=== PATIENT | female | born 1960 | race Caucasian/White ===

== ENCOUNTER 2018-11-16 16:14 | Outpatient (REF) | payer MEDICARE, SELFPAY ==
[2018-11-16 22:27] LABS: Anion Gap 8.6 mmol/L (3-11); BUN 12 mg/dL (7-18); CO2 28.4 mmol/L (21.0-32.0); CREATININE 0.67 mg/dL (0.55-1.02); Calcium 9.3 mg/dL (8.5-10.1); Chloride 104 mmol/L (98-107); Glucose 82 mg/dL (70-100); Potassium 4.2 mmol/L (3.5-5.1); Sodium 141 mmol/L (136-145); TSH 3.11 uIU/mL (0.358-3.74)
[2018-11-16 22:44] LABS: Hemoglobin A1C 5.2 % (4.5-6.2)
== END 2018-11-16 16:34 ==
LOC: NCHCN 16:14
PROVIDERS: PCP Internal Medicine; Visit Provider Internal Medicine
DX: E03.9 Hypothyroidism, unspecified (principal); E66.01 Morbid (severe) obesity due to excess calories
CPT/HCPCS: 80048; 83036; 84443

== ENCOUNTER 2019-06-12 08:31 | Emergency (ER) | payer MEDICARE, SELFPAY ==
[2019-06-12 08:35] VITALS: BP 124/52; PULSE 66; RESP 18; TEMP 36.7; O2SAT 98
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
--- NOTE | 2019-06-12 10:12 | DI.US_ITS ---
EXAM: US LOWER EXTREMITY VENOUS RT CLINICAL HISTORY: swelling, pain TECHNIQUE: Right lower extremity venous ultrasound performed using grayscale, color-flow, and spectr al Doppler analysis. COMPARISON: No exams were available for comparison FINDINGS: The right common femoral, femoral and popliteal veins demonstrate normal compressibility, augmentatio n, and color Doppler. The posterior tibial veins are patent.There is thrombus seen in superficial vei ns in the medial calf and medial knee. The saphenofemoral junction is unremarkable. No focal fluid collection is seen in the soft tissues. IMPRESSION: 1. No DVT. 2. Superficial thrombophlebitis.
--- NOTE | 2019-06-12 11:20 | DI.VRAD_ITS ---
PROCEDURE INFORMATION: Exam: US Duplex Right Lower Extremity Veins, Limited Exam date and time: 06/12/2019 10:58 AM Age: 58 years old Clinical indication: Leg, lower; Right; Patient HX: RT medial knee/prox calf pain, redness, and swelling x 1 month. Increasing pain, redness, and swelling. ; Additional info: PT is not on blood thinners and denies HX of clots. TECHNIQUE: Imaging protocol: Real-time Duplex ultrasound of the Right Lower Extremity with 2-D alvarez scale, color Doppler flow and spectral waveform analysis with image documentation. Limited exam was focused on the right lower extremity veins. COMPARISON: No relevant prior studies available. FINDINGS: Right deep veins: Unremarkable. The common femoral, femoral, proximal profunda femoral and popliteal veins are patent without thrombus. Normal Doppler waveforms. Normal compressibility and/or augmentation response. The posterior tibial vein in the calf is patent as well. Right superficial veins: Some thrombosed superficial veins are present in the medial calf and about the knee medially in the area of swelling. Soft tissues: Unremarkable. IMPRESSION: 1. No deep venous thrombus demonstrated in the right lower extremity. 2. Thrombosed superficial veins about the knee and calf medially. Dictated and Authenticated by: Damon Brown MD. Ordering:BAKARI Cuellar MD
[2019-06-12] MEDS: Apixaban 5 MG TAB 10 MG PO (11:27)
[2019-06-12 11:30] VITALS: PULSE 61; RESP 18; O2SAT 96
== END 2019-06-12 11:31 | disposition home or self-care (01) ==
PROVIDERS: Emergency Provider Student in an Organized Health Care Education/Training Program; PCP Internal Medicine
DX: I82.491 Acute embolism and thrombosis of other specified deep vein of right lower extremity (principal); J44.9 Chronic obstructive pulmonary disease, unspecified; F17.210 Nicotine dependence, cigarettes, uncomplicated
CPT/HCPCS: 99284; 93971

== ENCOUNTER → 2019-10-06 11:13 | Outpatient (CLI) | payer MEDICARE, SELFPAY ==
--- NOTE | 2019-10-06 | DI.CT_ITS ---
EXAM: CT CHEST PE CTA CLINICAL HISTORY: SHORTNESS OF BREATH, R06.02, H/O SUPERFICIAL THROMBOPHLEBITIS, Z86.72. TECHNIQUE: Imaging Protocol: Axial CT angiography was performed with multi-slice acquisition and mu lti-planar and/or 3D reconstructions. CONTRAST MATERIAL: Intravenous: Omnipaque 350 Contrast volume:100 ml COMPARISON: No exams were available for comparison FINDINGS: The exam is limited by respiratory motion. Pulmonary Arteries: No evidence of filling defect to sugg est pulmonary emboli. Tracheobronchial tree: Patent where visualized. Mediastinum and Nataly: No dominant adenopathy or fluid collection. Pulmonary parenchyma: Evaluation of the lungs is limited due to respiratory motion. There is a sugge stive diffuse bilateral ground-glass opacities greater in the upper lobes. No consolidation or domin ant measurable mass. . Pleura: No effusion or pneumothorax. Heart: The heart is not dilated. No coronary artery calcifications are seen. Aorta: Thoracic aorta non-dilated. Upper abdomen: Unremarkable. Bones: Normal. IMPRESSION: Bilateral ground ground-glass opacities could set be secondary to viral or atypical infection, inhala tional injury or hypersensitivity. No evidence of pulmonary embolism. RADIATION DOSE DELIVERED: Total DLP DATA REPOSITORY: All CT scans at this facility are submitted to the National Radiology Data Registry (NRDR) Dose Index Registry (DIR) with the [employer] (ACR). RADIATION OPTIMIZATION: All CT scans at this facility use at least one of these dose optimization te chniques: automated exposure control; mA and/or kV adjustment per patient size (includes targeted exa ms where dose is matched to clinical indication); or iterative reconstruction.
--- NOTE | 2019-10-06 16:30 | DI.US_ITS ---
EXAM: US LOWER EXTREMITY VENOUS RT CLINICAL HISTORY: H/O SUPERFICIAL THROMBOPHLEBITIS, NEW SWELLING AND REDNESS TO ANTERIOR NAVARRETE. TECHNIQUE: Right lower extremity venous ultrasound performed using grayscale, color-flow, and spectr al Doppler analysis. COMPARISON: US LOWER EXTREMITY VENOUS RT from 06/12/2019 FINDINGS: The right common femoral, femoral and popliteal veins demonstrate normal compressibility, augmentatio n, and color Doppler. The posterior tibial veins are patent. No saphenous vein thrombosis or other s uperficial venous thrombosis is seen. The previously noted superficial thrombosis has resolved. No hematoma or Luo's cyst is seen. IMPRESSION: Negative right lower extremity ultrasound. No evidence of DVT or superficial thrombosis.. DATA REPOSITORY:
--- NOTE | 2019-10-06 16:44 | DI.VRAD_ITS ---
PROCEDURE INFORMATION: Exam: US Duplex Right Lower Extremity Veins, Limited Exam date and time: 10/06/2019 4:11 PM Age: 58 years old Clinical indication: Other: New swelling and redness to ant steiner; Patient HX: H/o superficial thrombophlebitis TECHNIQUE: Imaging protocol: Real-time Duplex ultrasound of the Right Lower Extremity with 2-D alvarez scale, color Doppler flow and spectral waveform analysis with image documentation. Limited exam was focused on the right lower extremity veins. COMPARISON: US LOWER EXTREMITY VENOUS RT 06/12/2019 10:12 AM FINDINGS: Right deep veins: Unremarkable. The common femoral, femoral, proximal profunda femoral and popliteal veins are patent without thrombus. Normal Doppler waveforms. Normal compressibility and/or augmentation response. Right superficial veins: Unremarkable. Saphenofemoral junction is patent without thrombus. Soft tissues: Unremarkable. IMPRESSION: No DVT of the right lower extremity. Dictated and Authenticated by: Benjamin Bassett MD. Ordering:ELIZABETH Wasserman MD
[2019-10-06 16:56] LABS: CREATININE 0.63 mg/dL (0.55-1.02)
[2019-10-06] MEDS: Omnipaque 350 MG/ML 100 ML BTL IJ (17:42)
[2019-10-06] MEDS: Normal Saline - Diluent 50 ML VIAL IV (17:43)
--- NOTE | 2019-10-06 17:44 | DI.VRAD_ITS ---
PROCEDURE INFORMATION: Exam: CT Angiography Chest With Contrast Exam date and time: 10/06/2019 3:22 PM Age: 58 years old Clinical indication: Other: Shortness of breath, r06.02, h/o superficial thrombophlebitis, z86.72 TECHNIQUE: Imaging protocol: Computed tomographic angiography of the chest with intravenous contrast. 3D rendering: MIP and/or 3D reconstructed images were created by the technologist. Radiation optimization: All CT scans at this facility use at least one of these dose optimization techniques: automated exposure control; mA and/or kV adjustment per patient size (includes targeted exams where dose is matched to clinical indication); or iterative reconstruction. Contrast material: OMNIPAQUE 350; Contrast volume: 100 ml; Contrast route: IV; COMPARISON: CR ABD FLAT UPRIGHT PA CHEST 04/26/2016 12:43 PM FINDINGS: Pulmonary arteries: Normal. No pulmonary emboli. Aorta: Unremarkable. No aortic aneurysm. No aortic dissection. Lungs: Haziness in the left lung base which may be artifactual versus infiltrates. Pleural space: Unremarkable. No pneumothorax. No pleural effusion. Heart: Cardiomegaly. Lymph nodes: Unremarkable. No enlarged lymph nodes. Bones/joints: Unremarkable. No acute fracture. Soft tissues: Unremarkable. Other findings: Suboptimal examination secondary to motion artifact. IMPRESSION: Suboptimal examination secondary to motion artifact. No pulmonary embolism. Haziness in the left lung base which might be artifactual versus edema/infiltrates. If clinical suspicion remains high, repeat examination can be obtained for better evaluation. Dictated and Authenticated by: Benjamin Bassett MD. Ordering:ELIZABETH Wasserman MD
== END ==
PROVIDERS: PCP Internal Medicine; Visit Provider Nurse Practitioner Family
DX: R22.41 Localized swelling, mass and lump, right lower limb (principal); L53.8 Other specified erythematous conditions; R06.02 Shortness of breath; J98.4 Other disorders of lung; Z86.72 Personal history of thrombophlebitis; Z13.89 Encounter for screening for other disorder
CPT/HCPCS: 71275; 82565; 93971; J3490

== ENCOUNTER 2019-10-06 19:18 | Outpatient (REF) | payer MEDICARE, SELFPAY ==
[2019-10-07 19:48] LABS: COVID-19 RT-PCR UVMMC Result Negative (Negative)
== END 2019-10-06 19:38 ==
LOC: NCHCN 19:18
PROVIDERS: PCP Internal Medicine; Visit Provider Nurse Practitioner Family
DX: J06.9 Acute upper respiratory infection, unspecified (principal)
CPT/HCPCS: U0003

== ENCOUNTER 2019-11-22 16:10 | Outpatient (REF) | payer MEDICARE, SELFPAY ==
[2019-11-22 21:28] LABS: HCT 40.8 % (36.0-46.0); HGB 13.2 g/dL (12.0-15.5); Mean Corp. HGB Concentration 32.4 g/dL (32.0-36.0); Mean Corpuscular Hemoglobin 30.6 pg (27.0-33.0); Mean Corpuscular Volume 94.4 fL (80-95); Mean Platelet Volume 9.5 fL (8.0-11.0); Platelet Count 259 x1000/uL (130-400); RBC 4.32 m/cumm (4.00-5.20); RBC Distribution Width 14.1 % (11.7-14.6); White Blood Cell Count 5.55 k/cumm (4.4-10.8)
[2019-11-22 22:30] LABS: Hemoglobin A1C 5.2 % (3.8-5.6)
[2019-11-22 22:34] LABS: Anion Gap 7.6 mmol/L (3-11); BUN 12 mg/dL (7-18); CO2 28.4 mmol/L (21.0-32.0); CREATININE 0.58 mg/dL (0.55-1.02); Calcium 9.2 mg/dL (8.5-10.1); Chloride 107 mmol/L (98-107); Glucose 86 mg/dL (74-106); NT-proBNP 77 pg/mL (<300); Potassium 4.4 mmol/L (3.5-5.1); Sodium 143 mmol/L (136-145); TSH 2.13 uIU/mL (0.36-3.74)
== END 2019-11-22 16:30 ==
LOC: NCHCN 16:10
PROVIDERS: PCP Internal Medicine; Visit Provider Internal Medicine
DX: E03.9 Hypothyroidism, unspecified (principal); R09.02 Hypoxemia; M17.0 Bilateral primary osteoarthritis of knee; R06.09 Other forms of dyspnea; Z79.899 Other long term (current) drug therapy; J44.9 Chronic obstructive pulmonary disease, unspecified; E66.01 Morbid (severe) obesity due to excess calories
CPT/HCPCS: 80048; 85027; 83036; 83880; 84443

== ENCOUNTER 2019-11-23 01:00 | Outpatient (CLI) | payer MEDICARE, MEDICAID, SELFPAY ==
--- NOTE | 2019-11-23 10:35 | DI.US_ITS ---
APPROVED REPORT EXAM: Comprehensive 2D, Doppler, and color-flow Echocardiogram Patient Location: Out-Patient Right Of Way Supervisor: Catia Gentile RDCS (AE) Indications: Exertional Dyspnea Other Information Study Quality: Technically Limited Conclusion This is a technically limited study. Left Ventricle : Left ventricle is borderline dilated. The overall left ventricular systolic function appears normal. There is normal left ventricular wall thickness. Regional wall motion is not well vi sualized but grossly normal. The left ventricular diastolic function is normal. LVEF is 55-60%. Right Ventricle : Right ventricle is not well visualized. Right ventricular systolic function could n ot be assessed. The RVSP is 41 mmHg. Atria : The left atrium size is normal. The right atrium size is normal. Valves there are no hemodynamically significant valvular lesions. Great Vessels : IVC is normal in size and collapses >50% with inspiration. Compared to echocardiogram from 04/10/2014: Estimated RVSP has increased. Wall motion Left Ventricle Left ventricle is borderline dilated. The overall left ventricular systolic function appears normal. There is normal left ventricular wall thickness. Regional wall motion is not well visualized but delmar sly normal. The left ventricular diastolic function is normal. There is no ventricular septal defect visualized. LVEF is 55-60%. Right Ventricle Right ventricle is not well visualized. Right ventricular systolic function could not be assessed. Th e RVSP is 41.6 mmHg. Atria The left atrium size is normal. The right atrium size is normal. The interatrial septum is intact wit h no evidence for an atrial septal defect. Aortic Valve The aortic valve is normal in structure. There is no aortic valvular stenosis. No aortic regurgitatio n is present. Mitral Valve The mitral valve is normal in structure. No evidence of mitral valve stenosis. Trace mitral regurgita tion. Tricuspid Valve The tricuspid valve is normal in structure. There is no tricuspid valve stenosis. Trace to mild tricu spid regurgitation. Pulmonic Valve Pulmonic valve is not well visualized. There is no pulmonic valvular stenosis. Great Vessels The aortic root is normal in size. Ascending aorta is not well visualized. Aortic arch is normal in c aliber. IVC is normal in size and collapses >50% with inspiration. Pericardium There is no pericardial effusion. 2D Dimensions IVSD d PLAX 0.91 cm F: 0.6-1.0 LV Vol A2C d MOD 123.7 mL LVPW d PLAX 0.92 cm F: 0.6 - 1.0 LV Vol A4C d MOD 119.4 mL LVID d PLAX 5.27 cm F: 3.8 - 5.2 LA vol/ BSA A2C s A-L 28.3 mL/m2 LVDs 3.80 cm F: 2.2 - 3.5 LA vol/ BSA A4C s A-L 26.9 mL/m2 Ao Root d 2.59 cm F: 2.7 - 3.3 LA Vol/ BSA Biplane s A-L 28.3 mL/m2 RA Area A4C 19.39 cm2 LA Area A4C s MOD 20.50 cm2 RA Vol/ BSA A4C s A-L 26.7 mL/m2 LA Area A2C s MOD 20.53 cm2 LV EF Teichholz 52.4 % LV EF A4C MOD 55.8 % LVEF (Haro's) 58.43 % F: 54 - 74 LV EF A2C MOD 58.1 % LV Volume 90.78 mL F: 46 - 106 LV EF Biplane MOD 58.4 % LV Volume Index 38.46 mL/m2 F: 29 - 61 SV 74.55 mL LV Vol Biplane MOD 127.6 mL SV Index 31.54 mL/m2 FS 27.10 % M-Mode TAPSE 2.99 cm (M/F) >1.7 LV Diastology MV E' medial 0.127 (>0.07 m/s) E/A Ratio 1.3 LV E/e MED 8.05 (<14) MV E Vmax 1.03 (0.4-1.3 m/s) MV E' lateral 0.154 (>0.1 m/s) MV A Vmax 0.80 (0.4-1.3 m/s) LV E/e LAT 6.65 (<14) MV E/A Ratio 1.26 MV E/E' medial 8.08 MV E/E' lateral 6.67 Aortic Valve LVOT Area 3.68 cm2 AoV Area Vmax 2.75 cm2 LVOT Vmax 1.32 m/s AoV Area/ BSA (Vmax) 1.16 cm2/m2 LVOT Mean Rolly. 0.85 m/s SHAYY Mean Rolly. 2.64 cm2 LVOT Peak Grad 7.0 mmHg SHAYY Mean Rolly. Index 1.12 cm2/m2 LVOT Mean Grad 3.4 mmHg LVOT VTI 0.309 m LVOT Diam s 2.15 cm AoV Vmax 1.77 m/s Velocity Ratio 0.74 AoV Mean Rolly. 1.18 m/s AoV Peak Grad 12.5 mmHg LVOT SV 113.48 mL AoV Mean Grad 6.4 mmHg AoV VTI 0.408 m AoV Area VTI 2.78 cm2 AoV Area/ BSA (VTI) 1.18 cm/m2 Mitral Valve MV DT 195 (160-240 msec) MV PHT 56 msec MV Area PHT 3.90 cm2 Pulmonary Valve PV Vmax 1.18 (0.5-1.5 m/s) RVOT Peak Gr. 2.76 mmHg PV Peak Grad 5.6 mmHg RVOT Mean Gr. 1.95 mmHg PV Mean Grad 3.0 mmHg RVOT VTI 0.265 m PV VTI 0.275 m RVOT Vmax 0.83 m/s Tricuspid Valve TR Peak Grad 38.5 mmHg TR Vmax 3.10 m/s RA Pressure 3.00 mmHg RVSP (TR) 41.6 mmHg
== END 2019-11-23 01:20 ==
PROVIDERS: PCP Internal Medicine; Visit Provider Internal Medicine
DX: R06.09 Other forms of dyspnea (principal); R06.02 Shortness of breath; I42.8 Other cardiomyopathies
CPT/HCPCS: 93306

== ENCOUNTER 2019-11-29 00:15 | Outpatient (CLI) | payer MEDICARE, MEDICAID, SELFPAY ==
--- NOTE | 2019-11-29 10:39 | DI.RAD_ITS ---
EXAM: XR KNEE LT 3V AP,LAT,TIMOTHY INDICATION: BILAT KNEE OA,M17.0. COMPARISON: CR LEFT KNEE 3 VIEW COMPLETE from 11/02/2014 CR XR KNEE RT 3V AP,LAT,TIMOTHY from 11/29/2019 TECHNIQUE: 2D digital imaging was performed. FINDINGS: Prominent periarticular spurring is seen throughout. There is moderate to severe narrowing of the m edial femoral tibial joint. No joint effusion is visible. IMPRESSION: Advanced degenerative changes with some interval worsening compared with 2014. DATA REPOSITORY: RADIATION DOSE DELIVERED:
--- NOTE | 2019-11-29 10:39 | DI.RAD_ITS ---
EXAM: XR KNEE RT 3V AP,LAT,TIMOTHY CLINICAL HISTORY: BILAT KNEE OA,M17.0. TECHNIQUE: 2D digital imaging was performed. COMPARISON: CR KNEES BILAT AP STANDING LATS from 03/07/2015 FINDINGS: BONES: No acute fracture is present. No bony destructive lesion is seen. Prominent periarticular spur ring is seen throughout. JOINTS: There is moderate narrowing of the medial femoral tibial joint.. No joint effusion is seen. SOFT TISSUE: Venous varicosities.. IMPRESSION: Advanced degenerative changes, greatest of the medial femoral tibial joint.. DATA REPOSITORY: RADIATION DOSE DELIVERED:
== END 2019-11-29 00:35 ==
PROVIDERS: PCP Internal Medicine; Visit Provider Internal Medicine
DX: M25.561 Pain in right knee (principal); M25.562 Pain in left knee; M17.0 Bilateral primary osteoarthritis of knee
CPT/HCPCS: 73562

== ENCOUNTER → 2020-01-10 09:33 | Outpatient (BNVA) | payer MEDICARE, MEDICAID, SELFPAY | PROVIDERS: PCP Internal Medicine; Referring Provider Internal Medicine; Visit Provider Internal Medicine Cardiovascular Disease | DX: I27.20 Pulmonary hypertension, unspecified; E03.9 Hypothyroidism, unspecified; E66.8 Other obesity; J44.9 Chronic obstructive pulmonary disease, unspecified; F17.211 Nicotine dependence, cigarettes, in remission | CPT/HCPCS: 99203; 99214 ==

== ENCOUNTER 2020-01-27 02:23 | Outpatient (CLI) | payer MEDICARE, MEDICAID, SELFPAY ==
--- NOTE | 2020-01-27 | DI.MAMMO_ITS ---
EXAM: MG MAMMO SCREENING CLINICAL HISTORY: SCREENING,Z12.39 TECHNIQUE: Bilateral full field digital CC and MLO mammographic images were obtained with 3D tomosyn thesis and utilizing computer aided detection (CAD). COMPARISON: Available for comparison. FINDINGS: Masses/Architectural Distortion: None seen. Microcalcifications: No suspicious pleomorphic-type are seen. Skin Thickening/Nipple Retraction: None. IMPRESSION: 1. No significant interval change with no specific features of malignancy noted. 2. Unless there is more urgent need, screening mammography is recommended, as per [employer] guidelines. BI-RADS Category 1 - Negative Breast Density - Category A - Almost entirely fatty A negative radiographic report should not delay biopsy if a dominant or clinically suspicious mass is present. Up to ten percent of cancers are not identified on mammography. A negative report may reinforce clinical impression. Adenosis and dense breasts may obscure an underlying neoplasm. False positive reports average 6 to 10%. Patient will receive a letter notifying them of these results.
== END 2020-01-27 02:43 ==
PROVIDERS: PCP Internal Medicine; Visit Provider Internal Medicine
DX: Z12.31 Encounter for screening mammogram for malignant neoplasm of breast (principal)
CPT/HCPCS: 77063; 77067

== ENCOUNTER 2020-03-07 14:49 | Outpatient (REF) | payer MEDICARE, MEDICAID, SELFPAY ==
[2020-03-09 19:22] LABS: Patient Race White; SARS-CoV-2 RNA Undetected (Undetected); SARS-CoV-2 Specimen Source Nasopharynx
== END 2020-03-07 15:09 ==
LOC: NCHCN 14:49
PROVIDERS: PCP Internal Medicine; Visit Provider Nurse Practitioner Family
DX: R06.02 Shortness of breath (principal)
CPT/HCPCS: U0003

== ENCOUNTER 2020-03-26 11:44 | Emergency (ER) | payer MEDICARE, MEDICAID, SELFPAY ==
[2020-03-26 11:51] VITALS: BP 142/103; PULSE 65; RESP 20; TEMP 36.7; O2SAT 99
--- NOTE | 2020-03-26 12:00 | DI.RAD_ITS ---
EXAM: XR RIBS LT PA CHEST 3V CLINICAL HISTORY: Fall yesterday, left rib pain TECHNIQUE: 2D digital imaging was performed. COMPARISON: No exams were available for comparison FINDINGS: MEDIASTINUM: Normal. HEART: Normal. PULMONARY VASCULATURE: Normal. LUNGS: Clear. PLEURAL SPACE: No pleural effusion or pneumothorax. BONE:Normal. LEFT RIBS: Normal. OTHER FINDINGS:Normal. IMPRESSION: 1. No acute pulmonary findings. 2. Unremarkable left ribs. DATA REPOSITORY: RADIATION DOSE DELIVERED:
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
[2020-03-26 12:58] VITALS: BP 136/58; PULSE 64; RESP 18; TEMP 36.6; O2SAT 96
[2020-03-26] MEDS: traMADol 50 MG TAB PO (13:25)
[2020-03-26] MEDS: Lidocaine 5% Patch 1 PATCH TP (13:36)
[2020-03-26 13:41] VITALS: BP 132/91; PULSE 62; RESP 22; TEMP 36.4; O2SAT 95
[2020-03-26 13:42] VITALS: BP 132/91; PULSE 62; RESP 22; TEMP 36.4; O2SAT 95
== END 2020-03-26 13:44 | disposition home or self-care (01) ==
PROVIDERS: Emergency Provider Registered Nurse Emergency; PCP Internal Medicine
DX: S20.222A Contusion of left back wall of thorax, initial encounter (principal); W18.2XXA Fall in (into) shower or empty bathtub, initial encounter; J44.9 Chronic obstructive pulmonary disease, unspecified; Z87.891 Personal history of nicotine dependence
CPT/HCPCS: 71101; 99283; 99284

== ENCOUNTER 2020-03-29 14:02 | Inpatient (IN) | payer MEDICARE, MEDICAID, SELFPAY ==
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
[2020-03-29 14:06] VITALS: BP 150/63; PULSE 74; RESP 22; TEMP 37.1; O2SAT 96
[2020-03-29] MEDS: Lidocaine 5% Patch 1 PATCH TP (14:28)
[2020-03-29] MEDS: diazePAM 5 MG TAB PO (14:28)
[2020-03-29] MEDS: oxyCODONE 5 MG TAB PO ×2 (14:28→15:20)
--- NOTE | 2020-03-29 15:30 | DI.CT_ITS ---
EXAM: CT CHEST WO CLINICAL HISTORY: L lateral rib contusion s/p fall, r/o fx. TECHNIQUE: Imaging protocol: Axial computed tomography images were obtained and coronal and sagittal reformatted images were created and reviewed. COMPARISON: CR XR RIBS LT PA CHEST 3V from 03/26/2020 FINDINGS: Tracheobronchial tree: Patent where visualized. Mediastinum and Nataly: No dominant adenopathy or fluid collection. Pulmonary parenchyma: Atelectasis in the lung bases left greater than right. No architectural distor tion. Pleura: Tiny left pleural effusion. No right pleural effusion or pneumothorax. Heart: The heart is not dilated. No coronary artery calcifications are seen. No significant pericardi al effusion. Aorta: Thoracic aorta non-dilated. Upper abdomen: Unremarkable. Lymph nodes: Within normal limits. Bones:There are nondisplaced fractures of the lateral aspects of the left 6th, 7th and 8th ribs. Soft tissues: Unremarkable. IMPRESSION: 1. Nondisplaced fractures of the lateral aspects of the left 6th, 7th and 8th ribs. 2. No pneumothorax. 3. Tiny left pleural effusion and left basilar atelectasis. 4. Findings were discussed with the emergency department on the date of the examination. RADIATION DOSE DELIVERED: 800.06mGy.cm Total DLP 800.06mGy.cm Total DLP DATA REPOSITORY: All CT scans at this facility are submitted to the National Radiology Data Registry (NRDR) Dose Index Registry (DIR) with the [employer] ([employer]). RADIATION OPTIMIZATION: All CT scans at this facility use at least one of these dose optimization te chniques: automated exposure control; mA and/or kV adjustment per patient size (includes targeted exa ms where dose is matched to clinical indication); or iterative reconstruction.
[2020-03-29] MEDS: Ondansetron 4 MG/2 ML VIAL IVP (16:15)
[2020-03-29] MEDS: HYDROmorphone 2 MG/ML VIAL 0.5 MG IV (16:15)
[2020-03-29] MEDS: Normal Saline 500 ML IV (16:16)
[2020-03-29 16:30] VITALS: BP 104/76; PULSE 68; O2SAT 94
[2020-03-29 16:39] VITALS: BP 104/43; PULSE 70; RESP 16; TEMP 37.1; O2SAT 94
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
--- NOTE | 2020-03-29 17:07 | NUR.NOTE ---
Nursing Note: Pt provided with meal tray at 1700
[2020-03-29 18:20] VITALS: BP 118/82; PULSE 67; RESP 16; TEMP 36.5; O2SAT 95
[2020-03-29 18:35] VITALS: BP 118/72; PULSE 77; RESP 18; TEMP 37.4; O2SAT 94
[2020-03-29] MEDS: fentaNYL 25 MCG PATCH TD (18:50)
[2020-03-29] MEDS: Enoxaparin 40 MG/0.4 ML SYR SC (18:50)
[2020-03-29] MEDS: Cyclobenzaprine 10 MG TAB PO (18:50)
[2020-03-29] MEDS: Acetaminophen 500 MG TAB 1000 MG PO ×2 (18:50→23:18)
[2020-03-29] MEDS: oxyCODONE 10 MG TAB PO ×2 (19:31→23:19)
[2020-03-29 20:24] LABS: HCT 38.6 % (36.0-46.0); HGB 12.5 g/dL (11.2-15.7); MCH 30.3 pg (27.0-33.0); MCHC 32.4 % (32.0-36.0); MCV 93.7 fL (80-95); MPV 9.1 fL (8.0-11.0); Platelet Count 216 10^3/uL (130-400); RBC 4.12 10^6/uL (3.93-5.22); RDW 13.9 % (11.7-14.6); RDW-SD 47.8 fL; WBC 8.27 10^3/uL (4.4-10.8)
[2020-03-29] MEDS: Docusate Sodium 100 MG CAP PO (20:25)
[2020-03-29] MEDS: Pregabalin 50 MG CAP 150 MG PO (20:25)
[2020-03-29] MEDS: Ketorolac 30 MG/ML VIAL IVP (20:26)
[2020-03-29] MEDS: Normal Saline Flush 10 ML SYR IVP (20:27)
[2020-03-29 23:42] VITALS: BP 94/56; PULSE 71; RESP 17; TEMP 36.6; O2SAT 94
[2020-03-30] MEDS: Normal Saline Flush 10 ML SYR IVP ×3 (01:35→19:45)
[2020-03-30] MEDS: Ketorolac 30 MG/ML VIAL IVP ×4 (01:36→19:46)
[2020-03-30 01:44] LABS: COVID-19 RT-PCR UVMMC Result Negative (Negative)
[2020-03-30 06:30] VITALS: BP 137/75; PULSE 60; RESP 18; TEMP 35.7; O2SAT 92
[2020-03-30] MEDS: oxyCODONE 10 MG TAB PO (06:39)
[2020-03-30] MEDS: Acetaminophen 500 MG TAB 1000 MG PO ×3 (06:41→18:26)
[2020-03-30] MEDS: Levothyroxine 75 MCG TAB PO (06:41)
[2020-03-30 07:45] VITALS: BP 105/74; PULSE 66; RESP 18; TEMP 36.6; O2SAT 94
[2020-03-30] MEDS: Sertraline 50 MG TAB 100 MG PO (07:48)
[2020-03-30] MEDS: Docusate Sodium 100 MG CAP PO ×3 (07:48→19:47)
[2020-03-30] MEDS: Pregabalin 50 MG CAP 150 MG PO ×3 (07:48→19:47)
[2020-03-30] MEDS: Lidocaine 5% Patch 1 PATCH TP (09:12)
[2020-03-30] MEDS: Tiotropium/Olodaterol 10 PUFF INHALER 2 PUFF IH (09:21)
[2020-03-30] MEDS: LORazepam 1 MG TAB PO (09:43)
--- NOTE | 2020-03-30 10:32 | W.PM.PROGNOT ---
Date of Service Date of service: 03/30/20 Time of Service: 10:32 Assessment and Plan Assessment and plan (1) Tobacco use: Status: None (2) Chronic pain: Status: None (3) COPD (chronic obstructive pulmonary disease): Status: None (4) Ventricular hypertrophy determined by echocardiography: Status: Acute (5) Sleep apnea: Status: Acute (6) Fall: Status: Acute (7) Contusion of left chest wall: Status: Acute Assessment and plan: pt was alseep in bed cont IS contPT (8) Multiple rib fractures: Status: Acute (9) Intractable pain: Status: Acute (10) Pulmonary hypertension: Status: Acute (11) Hypothyroidism: Status: None (12) Obesity: Status: None Subjective Subjective Interval history since last seen: pt has been falling at home. Pt refuses to have an MRI in our unit. Once to be sedated. pt xray is unremarkable other than Fx. She is 5 days post injury. Awaiting PT eval. Pt is comfortable and slept during the night per RN's. Exam Resp Effort & Inspection: normal respiratory effort and able to speak in complete sentences Auscultation: clear to auscultation bilaterally Objective Last Vital Signs Temp 36.6 C 03/30/20 07:45 Pulse 66 03/30/20 07:45 Resp 18 03/30/20 07:45 BP 105/74 03/30/20 07:45 Pulse Ox 94 03/30/20 07:45 Laboratory Results - last 24 hr 03/29/20 03/29/20 18:10 20:15 WBC 8.27 RBC 4.12 Hgb 12.5 Hct 38.6 MCV 93.7 MCH 30.3 MCHC 32.4 RDW 13.9 Plt Count 216 MPV 9.1 COVID-19 PCR Negative Nasopharyn COVID-19 PCR Not Applicable Ref Test Perform Site [facility] lab
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
--- NOTE | 2020-03-30 14:23 | CHAPLAIN ---
I visited briefly with Aparna and her daughter. Aparna was up walking around the room a bit. She was pleasant, but not interested in further conversation.
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
[2020-03-30 15:57] VITALS: BP 118/82; PULSE 67; RESP 16; TEMP 36.5; O2SAT 95
--- NOTE | 2020-03-30 16:15 | PDOC.HHF2F_ITS ---
Home Health Certification Home Health Certification: 1. Encounter Date and Reason I certify that TORY LECHUGA was seen by Debbie Willard on 03/30/20 and that I had a [id number] encounter with this patient that meets the physician face to face encounter requirements. 2. Clinical Findings Supporting Skilled Need and Homebound Status I certify that home health services are medically necessary, include either intermittent [place] [facility] and/or physical/speech therapy, and that this patient is homebound in that absences from the home require considerable and taxing effort and are infrequent or of short duration, or are attributable to the need to receive medical care. [X] (a) Attached documentation from encounter provides clinical findings supporting skilled need and homebound status (including what assistance patient requires to leave the home). The encounter with the patient was in whole, or in part, for the following medical condition, which is the primary reason for home health care: BLUNT CHEST TRAUMA/RIB FRACTURES Fpc: Physical Therapy: pt needs home PT for strength and balance Speech Therapy: Homebound: 3. Certification and Authentication I certify that I composed the above information based on my clinical judgement relating to this patient's medical condition and, if applicable, clinical findings communicated to me by the NPP or inpatient physician who performed the Home Health Referral. All further orders will be obtained through (Community Based Physician - PCP)
[2020-03-30] MEDS: Enoxaparin 40 MG/0.4 ML SYR SC (18:26)
[2020-03-30] MEDS: Lidocaine Patch Removal 1 EACH TD (21:07)
[2020-03-31] MEDS: Acetaminophen 500 MG TAB 1000 MG PO ×3 (00:13→11:00)
[2020-03-31] MEDS: Ketorolac 30 MG/ML VIAL IVP ×2 (02:49→07:45)
[2020-03-31 03:38] VITALS: BP 100/51; PULSE 67; RESP 16; TEMP 36.5; O2SAT 96
[2020-03-31] MEDS: Levothyroxine 75 MCG TAB PO (06:18)
[2020-03-31 07:44] VITALS: BP 107/72; PULSE 61; RESP 16; TEMP 36.4; O2SAT 95
[2020-03-31] MEDS: Normal Saline Flush 10 ML SYR IVP (07:45)
[2020-03-31] MEDS: Sertraline 50 MG TAB 100 MG PO (07:45)
[2020-03-31] MEDS: Pregabalin 50 MG CAP 150 MG PO (07:45)
[2020-03-31] MEDS: Docusate Sodium 100 MG CAP PO (07:45)
[2020-03-31] MEDS: Lidocaine 5% Patch 1 PATCH TP (07:46)
--- NOTE | 2020-03-31 08:34 | PT.INTREAT ---
PT Notes Visit Reasons: BLUNT CHEST TRAUMA/RIB FRACTURES 03/31/2020 SUBJECTIVE: Aparna stating her pain is much improved today. She feels steadier on her feet as well. OBJECTIVE: [id number] Pt seated in her recliner. Agreeable to PT treatment. TRANSFERS Sit to stand: SBA Stand to side: SBA GAIT Device: SPC Weight bearing: Full Assist: SBA Distance: 50' Deviation: Wide HIEN, drags her feet slightly. THEREX: Instruct pt in seated LAQ, hip flexion, ankle pumps, biceps curls, glute sets. These are to be performed often here at the hospital and when she returns home. She does have a set of ankle weights at home and she can utilize these for quad strengthening. ASSESSMENT: Improved stability with gait today and she was able to utilize SPC vs. walker without LOB noted. She has a good understanding of exercises to perform at home to maintain her strength. PLAN: Continue current POC, adding in balance activities if patient is still in the hospital tomorrow. Direct time: 15 minutes Total time: 15 minutes Jacqueline Peralta PTA Clinic location: [facility] [place], [place]
[2020-03-31] MEDS: Tiotropium/Olodaterol 10 PUFF INHALER 2 PUFF IH (08:48)
[2020-03-31] MEDS: oxyCODONE 5 MG TAB PO (10:55)
--- NOTE | 2020-03-31 12:07 | W.PM.PROGNOT ---
Date of Service Date of service: 03/31/20 Time of Service: 12:07 Assessment and Plan Assessment and plan (1) Tobacco use: Status: None (2) Chronic pain: Status: None Assessment and plan: On Fentanyl patch 25 mcg q 72 hours That has been increased to 50 mcg to cover the acute pain Will Discharge home on 50 mcg for 1 week. HAs appointment with her PCP next week so they can discuss returning back to 25 mcg. Qualifiers: Chronic pain type: other chronic pain Qualified Code(s): G89.29 - Other chronic pain (3) COPD (chronic obstructive pulmonary disease): Status: None Assessment and plan: Discussed quiting smoking Qualifiers: COPD type: unspecified COPD Qualified Code(s): J44.9 - Chronic obstructive pulmonary disease, unspecified (4) Ventricular hypertrophy determined by echocardiography: Status: Acute (5) Sleep apnea: Status: Acute Qualifiers: Sleep apnea type: unspecified type Qualified Code(s): G47.30 - Sleep apnea, unspecified (6) Fall: Status: Acute Assessment and plan: Has had a couple of falls at home. Has been working with PT. PT recommended home with Home PT and cane/walker to help with balance Qualifiers: Encounter type: subsequent encounter Qualified Code(s): W19.XXXD - Unspecified fall, subsequent encounter (7) Contusion of left chest wall: Status: Acute Qualifiers: Encounter type: subsequent encounter Qualified Code(s): S20.212D - Contusion of left front wall of thorax, subsequent encounter (8) Multiple rib fractures: Status: Acute Assessment and plan: Discussed rib block again. Patient not interested Discussed that it may take 1 month for things to feel better. Discussed importance of deep breathing, ISP at home to avoid pneumonia Qualifiers: Encounter type: subsequent encounter Fracture type: closed Laterality: unspecified laterality Fracture healing: with routine healing Qualified Code(s): S22.49XD - Multiple fractures of ribs, unspecified side, subsequent encounter for fracture with routine healing (9) Intractable pain: Status: Acute (10) Pulmonary hypertension: Status: Acute (11) Hypothyroidism: Status: None (12) Obesity: Status: None Subjective Subjective Interval history since last seen: Mrs Duarte is doing OK. She tells me she is sore. She did work with PT today and did much better. Using a cane now to walk. Mrs. Duarte's daughter is in the room and wants to know what her mother will get for pain medications. Patient is chronically on Fentanyl 25 mcg patch. That has been increased to 50 mcg while here. She has also been getting Toradol and Tylenol. Discussed the rib block again but patient doesn't want it due to concern for complication due to her size. Exam HENVA Head: normal to inspection, normocephalic and atraumatic Resp Effort & Inspection: normal respiratory effort Auscultation: clear to auscultation bilaterally Cardio Rate: regular rate Rhythm: regular rhythm GI Inspection: normal to inspection Palpation: soft and no hepatosplenomegaly Auscultation: normal bowel sounds Objective Last Vital Signs Temp 97.5 F L 03/31/20 07:44 Pulse 61 03/31/20 07:44 Resp 16 03/31/20 07:44 BP 107/72 03/31/20 07:44 Pulse Ox 95 03/31/20 07:44
--- NOTE | 2020-03-31 12:08 | PDOC.CMDIS ---
LACE Index Scoring Tool - Questions: Length of Stay (in days): 2 Acuity (Admit via E.D.?): Yes Comorbidities: Chronic Pulmonary Disease E.D. Visits: 3 - Answers: Total Score: 10 Risk of Readmission: High Risk Care Management Discharge Reason for Hospitalization: Blunt chest trauma, Rib fractures Discharge Plan: Aparna will return home with new orders for [facility] PT through [facility]; CM notifed agency. Aparna will follow up with her PCP and discharge plan of care and transport home via private vehicle with her daughter. Patient/Family Education Needs: Review discharge instructions, discuss Ask Me Three. Services Needed at Discharge: Home Health Care Services (PT)
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
== END 2020-03-31 14:08 | disposition home health service (06) | DRG 560 ==
LOC: ER 18:04 → MS 18:33
PROVIDERS: Admitting Provider Surgery; Emergency Provider Physician Assistant; PCP Internal Medicine; Visit Provider Surgery
DX: S22.42XD Multiple fractures of ribs, left side, subsequent encounter for fracture with routine healing (principal); Z68.43 Body mass index [BMI] 50.0-59.9, adult; J98.11 Atelectasis; E66.01 Morbid (severe) obesity due to excess calories; F41.9 Anxiety disorder, unspecified; F32.9 Major depressive disorder, single episode, unspecified; M17.0 Bilateral primary osteoarthritis of knee; G89.11 Acute pain due to trauma; R07.81 Pleurodynia; E03.9 Hypothyroidism, unspecified; J44.9 Chronic obstructive pulmonary disease, unspecified; M54.30 Sciatica, unspecified side; E55.9 Vitamin D deficiency, unspecified; I83.93 Asymptomatic varicose veins of bilateral lower extremities; I87.2 Venous insufficiency (chronic) (peripheral); S20.212D Contusion of left front wall of thorax, subsequent encounter; Z87.891 Personal history of nicotine dependence; I27.20 Pulmonary hypertension, unspecified; I51.7 Cardiomegaly; G47.33 Obstructive sleep apnea (adult) (pediatric); G89.29 Other chronic pain; W19.XXXD Unspecified fall, subsequent encounter; Y92.002 Bathroom of unspecified non-institutional (private) residence as the place of occurrence of the external cause
CPT/HCPCS: 36415; 71250; 85027; 94640; 96361; 96374; 96375; 97162; 97530; 99222; 99231; 99232; 99239; 99285; J1650; U0003; J1885; J2405; J3490

== ENCOUNTER 2020-04-10 02:12 | Outpatient (CLI) | payer MEDICARE, MEDICAID, SELFPAY ==
[2020-04-10 14:16] LABS: Iron 88 ug/dL (50-170)
[2020-04-10 14:31] LABS: ALT 22 U/L (14-59); AST 17 U/L (15-37); Albumin 3.6 g/dL (3.4-5.0); Alkaline Phosphatase 86 U/L (46-116); Anion Gap 5.3 mmol/L (3-11); BUN 5 mg/dL (7-18); Bilirubin, Total 0.3 mg/dL (0.2-1.0); CO2 29.7 mmol/L (21.0-32.0); CREATININE 0.63 mg/dL (0.55-1.02); Chloride 103 mmol/L (98-107); Ferritin 113 ng/mL (8-252); Glucose 102 mg/dL (74-106); Potassium 4.5 mmol/L (3.5-5.1); Sodium 138 mmol/L (136-145); TSH 0.89 uIU/mL (0.36-3.74); Total Protein 6.9 g/dL (6.4-8.2)
[2020-04-10 17:11] LABS: Bilirubin, Direct 0.14 mg/dL (0.00-0.20)
== END 2020-04-10 02:32 ==
PROVIDERS: PCP Internal Medicine; Visit Provider Internal Medicine
DX: G47.61 Periodic limb movement disorder (principal)
CPT/HCPCS: 36415; 80048; 80076; 82728; 83540; 84443

== ENCOUNTER 2020-04-20 14:12 | Outpatient (REF) | payer MEDICARE, MEDICAID, SELFPAY ==
[2020-04-25 11:30] LABS: Patient Race White; SARS-CoV-2 RNA Undetected (Undetected); SARS-CoV-2 Specimen Source Nasal
== END 2020-04-20 14:32 ==
LOC: NCHCN 14:12
PROVIDERS: PCP Internal Medicine; Visit Provider Nurse Practitioner Family
DX: Z11.59 Encounter for screening for other viral diseases (principal)
CPT/HCPCS: U0003

== ENCOUNTER 2020-04-21 08:03 | Emergency (ER) | payer MEDICARE, MEDICAID, SELFPAY ==
[2020-04-21 08:14] VITALS: BP 144/77; PULSE 89; RESP 20; TEMP 37.6; O2SAT 94
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
--- NOTE | 2020-04-21 08:45 | DI.CT_ITS ---
EXAM: CT CHEST PE ABD PELVIS W TECHNIQUE: CT examination of the chest, abdomen, and pelvis was performed with bolus infusion of 100 cc of Omnipaque 350. COMPARISON: CT CT CHEST PE CTA from 10/06/2019 FINDINGS: There is no evidence of a thoracic vascular injury. The lungs are clear except for mild bibasilar at electasis.. No pneumothorax or pleural effusion. No mediastinal hematoma. No adenopathy in the chest . Tracheobronchial tree appears intact. The liver, spleen, and pancreas appear normal. Gallbladder and bile ducts are normal. Adrenals and kidneys are unremarkable. No evidence of urinary tract injury or obstruction. No abdominal or pelvic vascular injury seen. No abdominal or pelvic adenopathy. No significant abdomi nal wall hernia or hematoma. No evidence of bowel injury. Note is made of cholelithiasis. There are fractures of the left 6th through 8th ribs laterally. IMPRESSION: Left rib fractures as described above. Otherwise no evidence of acute injury of the chest, abdomen, or pelvis. RADIATION DOSE DELIVERED: 2,213.58mGy.cm Total DLP 2,213.58mGy.cm Total DLP DATA REPOSITORY: All CT scans at this facility are submitted to the National Radiology Data Registry (NRDR) Dose Index Registry (DIR) with the [employer] ([employer]). RADIATION OPTIMIZATION: All CT scans at this facility use at least one of these dose optimization te chniques: automated exposure control; mA and/or kV adjustment per patient size (includes targeted exa ms where dose is matched to clinical indication); or iterative reconstruction.
--- NOTE | 2020-04-21 08:45 | RT.EKG_ITS ---
APPROVED REPORT Exam: Resting ECG Patient Location: E HR:109 bpm ECG Measurements Heart Rate 109 AXIS PA 193 P 49 QRSd 89 QRS -10 QT 322 T 31 QTc 435 Conclusion Sinus tachycardia...rate> 99. No STEMI I have reviewed and interpreted ECG and agree with software generated interpretation.
[2020-04-21] MEDS: Ondansetron 4 MG/2 ML VIAL IVP (09:40)
[2020-04-21] MEDS: Normal Saline 1,000 ML 1000 ML IV ×2 (09:40→11:49)
[2020-04-21] MEDS: Ketorolac 30 MG/ML VIAL IVP (09:40)
[2020-04-21 09:57] LABS: Lactate 0.7 mmol/L (0.6-1.4)
[2020-04-21 09:57] LABS: Abs Immature Grans 0.01 10^3/uL (0.0-0.06); Absolute Basophil Count 0.01 10^3/uL (0.0-0.2); Absolute Lymphocyte Count 0.37 10^3/uL (1.2-3.4); Absolute Monocyte Count 0.13 10^3/uL (0.1-0.8); Absolute Neutrophil Count 1.66 10^3/uL (1.2-6.7); Basophils % 0.5; HCT 38.6 % (36.0-46.0); HGB 13.1 g/dL (11.2-15.7); Immature Grans % 0.5; MCH 30.6 pg (27.0-33.0); MCHC 33.9 % (32.0-36.0); MCV 90.2 fL (80-95); MPV 10.5 fL (8.0-11.0); Nucleated RBC 0 %; RBC 4.28 10^6/uL (3.93-5.22); RDW 12.6 % (11.7-14.6); RDW-SD 41.6 fL; WBC 2.18 10^3/uL (4.4-10.8)
[2020-04-21 10:08] LABS: Bilirubin Small (Negative); Blood Small (Negative); Clarity Clear (Clear); Glucose Negative (Negative); Ketones 15 mg/dL (Negative); Leukocyte Esterase Negative (Negative); Nitrite Negative (Negative); pH 6.5 (5-8)
[2020-04-21 10:09] LABS: INR 1.2 (0.9-1.1); PTT Activated 25.9 sec (21.0-27.5); Prothrombin Time 11.6 sec (9.3-11.0)
[2020-04-21 10:11] LABS: ALT 30 U/L (14-59); AST 35 U/L (15-37); Albumin 3.5 g/dL (3.4-5.0); Alkaline Phosphatase 76 U/L (46-116); Anion Gap 6.7 mmol/L (3-11); BUN 7 mg/dL (7-18); Bilirubin, Total 0.7 mg/dL (0.2-1.0); CO2 28.3 mmol/L (21.0-32.0); CREATININE 0.73 mg/dL (0.55-1.02); Calcium 8.5 mg/dL (8.5-10.1); Chloride 98 mmol/L (98-107); Glucose 87 mg/dL (74-106); Magnesium 1.7 mg/dL (1.8-2.4); Potassium 4.2 mmol/L (3.5-5.1); Sodium 133 mmol/L (136-145)
[2020-04-21 10:15] LABS: Diff Comment Agrees w/ Instrument; Platelet Count 82 10^3/uL (130-400); RBC Morphology Normal
[2020-04-21 10:23] LABS: WBC 0-2 HPF (0-5)
[2020-04-21 10:24] LABS: Bacteria Moderate HPF (Negative); C & S Indicated? No/Sq. Contamination; Casts Negative LPF (Negative); Crystals Negative HPF (Negative); Epithelial Cells Many HPF (Negative); Mucus Trace (Negative)
[2020-04-21 10:28] LABS: Troponin I < 0.05 ng/mL (<0.06)
[2020-04-21] MEDS: Omnipaque 350 MG/ML 100 ML BTL IJ (11:22)
[2020-04-21] MEDS: Normal Saline - Diluent 50 ML VIAL IV (11:23)
[2020-04-21] MEDS: Normal Saline Flush 10 ML SYR IVP (11:24)
--- NOTE | 2020-04-21 11:42 | DI.VRAD_ITS ---
PROCEDURE INFORMATION: Exam: CT Angiography Chest With Contrast Exam date and time: 04/21/2020 11:02 AM Age: 59 years old Clinical indication: Other: L lateral rib pain, nausea, recent rib FX TECHNIQUE: Imaging protocol: Computed tomographic angiography of the chest with intravenous contrast. 3D rendering (Not supervised by radiologist): MIP and/or 3D reconstructed images were created by the technologist. Contrast material: OMNIPAQUE 350; Contrast volume: 100 ml; Contrast route: INTRAVENOUS (IV); COMPARISON: CT CHEST PE CTA 10/06/2019 5:13 PM FINDINGS: Pulmonary arteries: Normal. No pulmonary emboli. Aorta: Unremarkable. No aortic aneurysm. No aortic dissection. Lungs: There is subsegmental atelectasis in the lung bases. Pleural space: Unremarkable. No pneumothorax. No pleural effusion. Heart: Unremarkable. No cardiomegaly. No pericardial effusion. Mediastinal space: There is a small sliding hiatal hernia. Lymph nodes: Unremarkable. No enlarged lymph nodes. Bones/joints: Degenerative changes are present in the spine with sclerosis and osteophyte formation. There are minimally displaced fractures of the lateral aspects of the left 6th 7th and 8th ribs. Soft tissues: Unremarkable. IMPRESSION: 1. Minimally displaced left rib fractures. 2. Mild basilar atelectasis. 3. No evidence of pulmonary embolus or aortic dissection. PROCEDURE INFORMATION: Exam: CT Angiography Abdomen With Contrast Exam date and time: 04/21/2020 11:02 AM Age: 59 years old Clinical indication: Other: L lateral rib pain, nausea, recent rib FX TECHNIQUE: Imaging protocol: Computed tomographic angiography images of the abdomen with intravenous contrast material. 3D rendering (Not supervised by radiologist): MIP and/or 3D reconstructed images were created by the technologist. Contrast material: OMNIPAQUE 350; Contrast volume: 100 ml; Contrast route: INTRAVENOUS (IV); COMPARISON: CT CHEST PE CTA 10/06/2019 5:13 PM FINDINGS: Aorta: No aortic aneurysm. No aortic dissection. Celiac trunk and mesenteric arteries: No occlusion or significant stenosis. Renal arteries: No occlusion or significant stenosis. Liver: Normal. No mass. Gallbladder and bile ducts: There is a large stone in the gallbladder. Gallbladder wall is not thickened. The bile ducts are normal. Pancreas: Normal. No ductal dilation. Spleen: Normal. No splenomegaly. Adrenals: Normal. No mass. Kidneys and ureters: There is a tiny benign cyst in the upper pole of the left kidney. Otherwise the kidneys are normal with no calcifications or hydronephrosis. Stomach and bowel: Unremarkable. No obstruction. No mucosal thickening. Lymph nodes: Unremarkable. No enlarged lymph nodes. Intraperitoneal space: Small amount of nonspecific free fluid in the pelvis. Bones/joints: Degenerative changes in the spine especially at L5-S1 with narrowing and osteophytes. Soft tissues: Unremarkable. IMPRESSION: 1. Cholelithiasis. 2. No acute abnormalities are seen in the abdomen and pelvis. Dictated and Authenticated by: Vamsi Weston MD. Ordering:JOSIAH Constantino MD
[2020-04-21] MEDS: ACETAMINOPHEN 1,000 MG/100 ML BTL 400 MG IVPB (12:09)
[2020-04-21 12:10] VITALS: BP 112/61; PULSE 71; RESP 20; TEMP 36.7; O2SAT 94
[2020-04-21] MEDS: Ondansetron O.D.T. 4 MG TABEF, 3 TABS/BTL PO (13:04)
[2020-04-21 13:06] VITALS: BP 112/61; PULSE 71; RESP 20; TEMP 36.7; O2SAT 94
== END 2020-04-21 13:00 | disposition home or self-care (01) ==
PROVIDERS: Emergency Provider Physician Assistant; PCP Internal Medicine
DX: D72.819 Decreased white blood cell count, unspecified (principal); D69.6 Thrombocytopenia, unspecified; R11.0 Nausea; R53.83 Other fatigue; J44.9 Chronic obstructive pulmonary disease, unspecified; F17.210 Nicotine dependence, cigarettes, uncomplicated
CPT/HCPCS: 36415; 71275; 74177; 80053; 87040; 93005; 96361; 96374; 96375; 99285; U0003; 81003; 81015; 83605; 83735; 84484; 85025; 85610; 85730; 93010; J0131; J1885; J2405; J3490

== ENCOUNTER 2020-05-15 18:28 | Outpatient (REF) | payer MEDICARE, MEDICAID, SELFPAY ==
[2020-05-15 22:01] LABS: Abs Immature Grans 0.01 10^3/uL (0.0-0.06); Absolute Basophil Count 0.01 10^3/uL (0.0-0.2); Absolute Eosinophil Count 0.07 10^3/uL (0.0-0.7); Absolute Lymphocyte Count 1.43 10^3/uL (1.2-3.4); Absolute Monocyte Count 0.46 10^3/uL (0.1-0.8); Absolute Neutrophil Count 2.42 10^3/uL (1.2-6.7); Basophils % 0.2; Eosinophils % 1.6; HCT 40.5 % (36.0-46.0); HGB 13.1 g/dL (11.2-15.7); Immature Grans % 0.2; Lymphocytes % 32.5; MCH 30.3 pg (27.0-33.0); MCHC 32.3 % (32.0-36.0); MCV 93.5 fL (80-95); MPV 9.5 fL (8.0-11.0); Monocytes % 10.5; Nucleated RBC 0 %; Platelet Count 200 10^3/uL (130-400); RBC 4.33 10^6/uL (3.93-5.22); RDW-SD 47.4 fL
[2020-05-15 22:17] LABS: Anion Gap 7.5 mmol/L (3-11); BUN 8 mg/dL (7-18); CO2 27.5 mmol/L (21.0-32.0); CREATININE 0.67 mg/dL (0.55-1.02); Calcium 8.8 mg/dL (8.5-10.1); Chloride 104 mmol/L (98-107); Glucose 74 mg/dL (74-106); Potassium 4.5 mmol/L (3.5-5.1); Sodium 139 mmol/L (136-145)
== END 2020-05-15 18:48 ==
LOC: NCHCN 18:28
PROVIDERS: PCP Internal Medicine; Visit Provider Internal Medicine
DX: R50.9 Fever, unspecified (principal); E87.1 Hypo-osmolality and hyponatremia; R09.02 Hypoxemia; I27.20 Pulmonary hypertension, unspecified
CPT/HCPCS: 80048; 85025

== ENCOUNTER 2021-03-05 00:45 | Outpatient (CLI) | payer MEDICARE, MEDICAID, SELFPAY ==
--- OUTSIDE RECORDS SUMMARY | 2021-03-05 00:48 | XMS_ITS ---
:1960 Author Care Team Providers Name Role Phone BERNA MCCLELLAN MD Primary Care Provider [phone] Allergies Code Code System Name Reaction Severity Status Onset Wellbutrin ? ? Active ? Wellbutrin ? ? Active ? Medications Name Status Start Date Stop Date ? ? albuterol sulfate HFA 90 mcg/actuation Active ? Not available aerosol inhaler clindamycin HCl 300 mg capsule Active ? N ot available doxycycline hyclate 100 mg capsule Active ? Not available Eliquis DVT-PE Treatment 30-Day Starter 5 Active ? Not available mg (74 tablets) in dose pack fentanyl 25 mcg/hr transdermal patch Active ? Not available furosemide 20 mg tablet Active ? Not avai lable levothyroxine 75 mcg tablet Active ? Not available Lyrica 100 mg capsule Active ? Not availa ble Take 1 capsule 3 times a day by oral route. montelukast 10 mg tablet Active ? Not bruce ilable nabumetone 500 mg tablet Active ? Not bruce ilable prednisolone acetate 1 % eye Active ? Not available drops,suspension Proair Digihaler 90 mcg/actuation aerosol powder breath act, sen sor Active ? Not available Inhale 2 puffs every 4 hours by inhalation route. ropinirole 0.5 mg tablet Active ? Not bruce ilable Take 1 tablet 3 times a day by oral route. sertraline 100 mg tablet Active ? Not bruce ilable Spiriva Respimat 2.5 mcg/actuation Active ? Not available solution for inhalation Stiolto Respimat 2.5 mcg-2.5 mcg/actuation solution for inhalati on Active ? Not available Inhale 2 puffs every day by inhalation route. valacyclovir 500 mg tablet Active ? Not a vailable Vitamin C 1,000 mg tablet Active ? Not av ailable Take by oral route. vitamin D3 2,500 unit-folic acid 1 mg tablet Active ? Not available Take 1 tablet every day by oral route. Xarelto 10 mg tablet Active ? Not availab le Problems Name Status Onset Date Source ? Hypothyroidism Active 02/09/2020 ? Obesity Unknown 02/09/2020 ? Sleep Related Hypoxemia Active 02/09/2020 ? Chronic Obstructive Lung Disease Active 02/09/2020 ? Hypoxemia Active 02/09/2020 ? Viral Myalgia Active 03/01/2020 ? Hypothyroidism Active 03/01/2020 ? Vitamin D Deficiency Active 03/01/2020 ? Obesity Active 03/01/2020 ? Anxiety Active 03/01/2020 ? Trichotillomania Active 03/01/2020 ? Pulmonary Hypertension Active 03/01/2020 ? Chronic Obstructive Lung Disease Active 03/01/2020 ? Aphthous Ulcer of Mouth Active 03/01/2020 ? Osteoarthritis Active 03/01/2020 ? Knee Pain Active 03/01/2020 ? Pain in Lower Limb Active 03/01/2020 ? Dyspnea Active 03/01/2020 ? Hypoxemia Active 03/01/2020 ? Obstructive Sleep Apnea Syndrome Active 03/16/2020 ? Morbid Obesity Active 04/04/2020 ? Periodic Limb Movement Disorder Active 04/06/2020 ? Obstructive Sleep Apnea Syndrome Active ? ? Procedures None recorded. Results Lab Results Date Name Specimen Result Interpretation Description Value Range Status Address ? 04/10/2020 TSH, Serum ? No observation ? ? ? [place] or Plasma recorded. [facility]: [address] [place] [address] 04/10/2020 Ferritin, ? No observation ? ? ? [place] Serum or recorded. [facility]: [address] [place] [address] 04/10/2020 BMP, Serum ? No observation ? ? ? [place] or Plasma recorded. [facility]: [address] [place] [address] 04/10/2020 Iron, Serum ? No observation ? ? ? Northern recorded. [facility]: [address] [place] [address] Past Encounters 04/06/2020 Obstructive Sleep Apnea Syndrome; Period ic Limb Movement Disorder; Chronic Obstructive Lung Disease Cher Soto MD: [address] [place] [address] Dr cab[address] [phone], Ph. 03/16/2020 Chronic Obstructive Lung Disease; Pulmon anjelica Hypertension; Obstructive Sleep Apnea Syndrome; Ex-smoker Cher Soto MD: [address] [place] [address] Dr cabral [facility] [address], [place] [phone], Ph. Social History Tobacco Smoking Status Former Smoker (1 pack per a Notes: quit jul) Vaccine List Vaccine Type influenza, injectable, quadrivalent 03/28/2016 pneumococcal polysaccharide PPV23 04/07/2006 Td (adult) 06/04/2011 Tdap 04/25/2011 Plan of Care Reminders Provider Appointments None ? ? recorded. Lab None ? ? recorded. Referral None ? ? recorded. Procedures None ? ? recorded. Surgeries None ? ? recorded. Imaging None ? ? recorded. Vitals 04/06/2020 12:30PM Office 30 Height Weight BMI Blood Pressure 162.56 cm 140 kg 53 kg/m2 128/74 mm[Hg] 03/16/2020 10:45AM Office 15 Height Weight BMI Blood Pressure 162.56 cm 140 kg 53 kg/m2 128/72 mm[Hg]
--- NOTE | 2021-03-05 15:35 | DI.CT_ITS ---
Exam(s) CT HEAD WO EXAM: CT HEAD WO CLINICAL HISTORY: REST TREMOR,,G25.2,STIFFNESS,M25.60,UNEXPLAINED RECURRENT FALLS,R29.6. TECHNIQUE: Imaging Protocol: Axial computed tomography images with coronal and sagittal reformatted images were created and reviewed COMPARISON: No exams were available for comparison FINDINGS: Ventricles and Extra axial spaces: Normal in size and morphology for the patient's age. Hemorrhage: None. Cerebral parenchyma: Normal. No evidence of an acute territorial infarct. Midline shift: None. Brainstem/Cerebellum: Normal. Calvarium: Normal. Visualized Paranasal sinuses/Mastoids: Clear. Soft Tissues: Unremarkable. IMPRESSION: No acute intracranial process. RADIATION DOSE DELIVERED: 645.57mGy.cm Total DLP DATA REPOSITORY: All CT scans at this facility are submitted to the National Radiology Data Registry (NRDR) Dose Index Registry (DIR) with the [employer] (A[employer]). RADIATION OPTIMIZATION: All CT scans at this facility use at least one of these dose optimization te chniques: automated exposure control; mA and/or kV adjustment per patient size (includes targeted exa ms where dose is matched to clinical indication); or iterative reconstruction.
== END 2021-03-05 01:05 ==
PROVIDERS: PCP Internal Medicine; Visit Provider Internal Medicine
DX: G25.2 Other specified forms of tremor (principal); R29.6 Repeated falls; M25.69 Stiffness of other specified joint, not elsewhere classified
CPT/HCPCS: 70450

== ENCOUNTER 2021-03-22 10:21 | Emergency (ER) | payer MEDICARE, MEDICAID, SELFPAY ==
[2021-03-22 10:27] VITALS: BP 133/69; PULSE 89; RESP 20; TEMP 37.2; O2SAT 98
--- NOTE | 2021-03-22 10:30 | DI.RAD_ITS ---
Exam(s) XR PORTABLE CHEST AP EXAM: XR PORTABLE CHEST AP CLINICAL HISTORY: cough TECHNIQUE: COMPARISON: CR XR RIBS LT PA CHEST 3V from 03/26/2020 FINDINGS: The heart appears mildly enlarged. Lungs are grossly clear and well expanded. No pleural effusion s een on this frontal film. IMPRESSION: No evidence of acute process. RADIATION DOSE DELIVERED: Total DLP
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
[2021-03-22 11:03] LABS: Source Nasal/Nares
[2021-03-22 11:29] LABS: Abs Immature Grans 0.02 10^3/uL (0.0-0.06); Absolute Basophil Count 0.02 10^3/uL (0.0-0.2); Absolute Eosinophil Count 0.12 10^3/uL (0.0-0.7); Absolute Lymphocyte Count 1.27 10^3/uL (1.2-3.4); Absolute Monocyte Count 0.28 10^3/uL (0.1-0.8); Absolute Neutrophil Count 3.54 10^3/uL (1.2-6.7); Basophils % 0.4; Eosinophils % 2.3; HGB 13.1 g/dL (11.2-15.7); Immature Grans % 0.4; Lymphocytes % 24.2; MCH 30.6 pg (27.0-33.0); MCV 95.8 fL (80-95); MPV 8.9 fL (8.0-11.0); Monocytes % 5.3; Neutrophils % 67.4; Nucleated RBC 0 %; Platelet Count 222 10^3/uL (130-400); RBC 4.28 10^6/uL (3.93-5.22); RDW 13.6 % (11.7-14.6); RDW-SD 48.6 fL; WBC 5.25 10^3/uL (4.4-10.8)
[2021-03-22 11:49] LABS: ALT 17 U/L (14-59); AST 14 U/L (15-37); Albumin 3.4 g/dL (3.4-5.0); Alkaline Phosphatase 88 U/L (46-116); BUN 5 mg/dL (7-18); Bilirubin, Total 0.4 mg/dL (0.2-1.0); CREATININE 0.6 mg/dL (0.55-1.02); Chloride 107 mmol/L (98-107); Glucose 99 mg/dL (74-106); Potassium 4.1 mmol/L (3.5-5.1); Sodium 142 mmol/L (136-145); Total Protein 7.6 g/dL (6.4-8.2)
[2021-03-22 12:09] LABS: COVID-19 PCR Negative (Negative)
[2021-03-22] MEDS: Doxycycline Hyclate 100 MG CAP PO (12:28)
[2021-03-22] MEDS: Ondansetron O.D.T. 4 MG TABEF (13:00)
[2021-03-22 13:08] VITALS: BP 140/87; PULSE 71; RESP 16; TEMP 37.2; O2SAT 97
== END 2021-03-22 13:11 | disposition home or self-care (01) ==
PROVIDERS: Emergency Provider Physician Assistant; PCP Internal Medicine
DX: R05.1 Acute cough (principal); R53.81 Other malaise; L03.113 Cellulitis of right upper limb; L03.116 Cellulitis of left lower limb; Z20.822 Contact with and (suspected) exposure to COVID-19
CPT/HCPCS: 36415; 80053; 87635; 99283; 71045; 85025

== ENCOUNTER 2021-05-26 09:57 | Inpatient (IN) | payer MEDICARE, MEDICAID, SELFPAY ==
[2021-05-26] VITALS (42 sets, daily range): BP systolic 102–158; BP diastolic 49–99; PULSE 126–136; RESP 9–26; TEMP 36.2–37.3; O2SAT 93–100
--- NOTE | 2021-05-26 10:00 | RT.EKG_ITS ---
APPROVED REPORT Exam: Resting ECG Reason for Exam: dyspnea on exertion Patient Location: E HR:134 bpm ECG Measurements Heart Rate 134 AXIS KS 164 P 204 QRSd 95 QRS 12 QT 362 T 107 QTc 541 Conclusion Ectopic atrial tachycardia, unifocal...abnormal P axis, V-rate> 99 Nonspecific repol abnormality, diffuse leads...ST dep, T flat/neg, ant/lat/inf Prolonged QT interval...QTc >510mS
[2021-05-26 10:29] LABS: Bilirubin Negative (Negative); Blood Negative (Negative); Clarity Clear (Clear); Glucose Negative (Negative); Ketones Negative (Negative); Leukocyte Esterase Negative (Negative); Nitrite Negative (Negative); Specific Gravity 1.015 (1.005-1.025); pH 7.5 (5-8)
--- NOTE | 2021-05-26 10:30 | DI.RAD_ITS ---
Exam(s) XR CHEST 2V PA LATERAL EXAM: XR CHEST 2V PA LATERAL CLINICAL HISTORY: 20 lb weight gain TECHNIQUE: 2D digital imaging was performed of the chest. Two images were obtained. PA and lateral views were obtained. COMPARISON: CR XR RIBS LT PA CHEST 3V from 03/26/2020 CR XR RIBS LT PA CHEST 3V from 03/26/2020 CR XR PORTABLE CHEST AP from 03/22/2021 FINDINGS: MEDIASTINUM: Normal. HEART: Normal. PULMONARY VASCULATURE: Normal. LUNGS: No focal consolidating infiltrates. Plate atelectasis in the lung bases. PLEURAL SPACE: No pleural effusion or pneumothorax. BONE:Within normal limits for the patient's age. OTHER FINDINGS:Normal. IMPRESSION: No acute pulmonary findings. DATA REPOSITORY: RADIATION DOSE DELIVERED:
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
[2021-05-26 11:06] LABS: Source Nasal/Nares
[2021-05-26] MEDS: Furosemide 100 MG/10 ML VIAL 80 MG IVP (11:10)
[2021-05-26 11:30] LABS: Abs Immature Grans 0.06 10^3/uL (0.0-0.06); Absolute Basophil Count 0.03 10^3/uL (0.0-0.2); Absolute Eosinophil Count 0.09 10^3/uL (0.0-0.7); Absolute Lymphocyte Count 1.17 10^3/uL (1.2-3.4); Absolute Monocyte Count 0.35 10^3/uL (0.1-0.8); Absolute Neutrophil Count 3.57 10^3/uL (1.2-6.7); Basophils % 0.6; Eosinophils % 1.7; HCT 38.8 % (36.0-46.0); HGB 12.2 g/dL (11.2-15.7); INR 1.1 (0.9-1.1); Immature Grans % 1.1; Lymphocytes % 22.2; MCHC 31.4 % (32.0-36.0); MCV 95.6 fL (80-95); MPV 9.4 fL (8.0-11.0); Monocytes % 6.6; Neutrophils % 67.8; Nucleated RBC 0 %; PTT Activated 24.8 sec (21.0-27.5); Platelet Count 199 10^3/uL (130-400); Prothrombin Time 10.8 sec (9.3-11.0); RBC 4.06 10^6/uL (3.93-5.22); RDW 13.6 % (11.7-14.6); WBC 5.27 10^3/uL (4.4-10.8)
--- NOTE | 2021-05-26 11:33 | DI.VRAD_ITS ---
PROCEDURE INFORMATION: Exam: XR Chest Exam date and time: 05/26/2021 10:37 AM Age: 60 years old Clinical indication: Other: 20 lb weight gain TECHNIQUE: Imaging protocol: XR of the chest. Views: 2 views. COMPARISON: CR XR PORTABLE CHEST AP 03/22/2021 11:18 AM FINDINGS: Lungs: Linear like opacities seen on the lateral view likely reflecting atelectasis. Lungs otherwise clear. Pleural spaces: No sizable pleural effusion. No pneumothorax. Heart/Mediastinum: Cardiomediastinal silhouette is within normal limits. Bones/joints: No acute displaced fracture or dislocation. Bony degenerative changes. IMPRESSION: Minimal atelectasis without other acute cardiopulmonary findings. Dictated and Authenticated by: Storm Sanchez MD. Ordering:MARIIA Diaz MD
[2021-05-26 11:36] LABS: ALT 22 U/L (14-59); AST 15 U/L (15-37); Albumin 3.5 g/dL (3.4-5.0); Alkaline Phosphatase 79 U/L (46-116); Anion Gap 8.4 mmol/L (3-11); BUN 9 mg/dL (7-18); Bilirubin, Total 0.6 mg/dL (0.2-1.0); CO2 27.6 mmol/L (21.0-32.0); CREATININE 0.6 mg/dL (0.55-1.02); Calcium 8.8 mg/dL (8.5-10.1); Chloride 105 mmol/L (98-107); Glucose 88 mg/dL (74-106); NT-proBNP 911 pg/mL (<300); Potassium 4.2 mmol/L (3.5-5.1); Sodium 141 mmol/L (136-145); Total Protein 7.4 g/dL (6.4-8.2); Troponin I < 0.05 ng/mL (<0.06)
--- NOTE | 2021-05-26 11:45 | DI.CT_ITS ---
Exam(s) CT CHEST PE CTA EXAM: CT CHEST PE CTA CLINICAL HISTORY: tachy, elevated dimer, 20 lb weight gain. TECHNIQUE: Imaging Protocol: Axial CT angiography was performed with multi-slice acquisition and mu lti-planar and/or 3D reconstructions. CONTRAST MATERIAL: Intravenous: Omnipaque 350 Contrast volume:100 mL COMPARISON: CT CT CHEST PE ABD PELVIS W from 04/21/2020 FINDINGS: The examination is limited due to patient motion artifact. Tracheobronchial tree: Patent where visualized. Pulmonary parenchyma: No consolidation or dominant measurable mass. No architectural distortion. Atel ectasis in the lung bases. Pulmonary Arteries: There are emboli seen in branches of the pulmonary artery and in the left upper l obe. Mediastinum and Nataly: No dominant adenopathy or fluid collection. Esophagus is unremarkable. Visualized thyroid gland: Unremarkable. Pleura: No effusion or pneumothorax. Heart: Mild cardiomegaly. No evidence of right heart strain. No coronary artery calcifications are seen. No pericardial effusion. Aorta: Thoracic aorta non-dilated. No evidence of dissection. Upper abdomen: Limited evaluation of the upper abdomen due to the patient motion artifact. There do es appear to be hepatic steatosis. The spleen is at the upper limits of normal in size. Soft tissues: Unremarkable. Bones: Within normal limits for the patient's age. IMPRESSION: 1. Pulmonary emboli seen in the pulmonary artery branches in the left upper lobe. No evidence of rig ht heart strain. 2. No evidence of thoracic aortic dissection or aneurysm. RADIATION DOSE DELIVERED: 716.19mGy.cm Total DLP DATA REPOSITORY: All CT scans at this facility are submitted to the National Radiology Data Registry (NRDR) Dose Index Registry (DIR) with the [employer] (A[employer]). RADIATION OPTIMIZATION: All CT scans at this facility use at least one of these dose optimization te chniques: automated exposure control; mA and/or kV adjustment per patient size (includes targeted exa ms where dose is matched to clinical indication); or iterative reconstruction.
[2021-05-26 11:46] LABS: D-Dimer 1071 ng/mlFEU (<500)
[2021-05-26] MEDS: Omnipaque 350 MG/ML 100 ML BTL IV (12:27)
[2021-05-26] MEDS: Normal Saline Flush 10 ML SYR IVP (12:28)
--- NOTE | 2021-05-26 13:44 | DI.VRAD_ITS ---
Addendum created by Storm Sanchez DO on 05/26/2021 1:46:10 PM EST: Findings of pulmonary emboli discussed with Dr. Lundy by Dr. Sanchez at approximately 12:44 p.m. on 05/26/2021 by phone. Central standard time. Initial report created on 05/26/2021 1:43:37 PM EST: PROCEDURE INFORMATION: Exam: CTA Chest With Contrast Exam date and time: 05/26/2021 11:49 AM Age: 60 years old Clinical indication: Other: Tachy, elevated dimer, 20 lb weight gain TECHNIQUE: Imaging protocol: Computed tomographic angiography of the chest with contrast. 3D rendering (Not supervised by radiologist): MIP and/or 3D reconstructed images were created by the technologist. Contrast material: OMNIPAQUE 350; Contrast volume: 100 ml; Contrast route: INTRAVENOUS (IV); COMPARISON: CT CHEST PE ABD PELVIS W 04/21/2020 10:16 AM FINDINGS: Pulmonary arteries: Normal caliber main pulmonary artery. There is small burden of distal left apical pulmonary emboli. Image 17 series 4 and image 64 series 8 as examples. Aorta: Normal caliber aorta. Thyroid: Unremarkable visualized thyroid. Trachea: Portions of the trachea appear to be at least partially collapsed. This is most prominent at the mid to distal trachea. Image 12 series 4 as an example. This could be at least partly related to expiration. Lungs: Limited evaluation of the lung parenchyma secondary to motion. Minimal bilateral atelectasis and or scarring. No convincing consolidation. Pleural spaces: No pneumothorax. No sizable pleural effusion. Heart: Heart somewhat prominent however this could be at least partly related to phase of respiration. Lymph nodes: No suspicious lymphadenopathy. Liver: Likely hepatic steatosis. Spleen: Splenomegaly. Bones/joints: Bony degenerative changes. Soft tissues: Nonspecific body wall edema. IMPRESSION: 1. Small burden of distal left apical pulmonary emboli without evidence of right heart strain. 2. Likely hepatic steatosis. Please correlate with LFTs. 3. Splenomegaly suspected to be related to chronic liver disease. 4. Additional findings as detailed. Dictated and Authenticated by: Storm Sanchez MD. Ordering:MARIIA Diaz MD
[2021-05-26 14:38] LABS: COVID-19 PCR Negative (Negative)
[2021-05-26 14:44] LABS: Troponin I < 0.05 ng/mL (<0.06)
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
[2021-05-26 16:38] LABS: Hemoglobin A1C 5.3 % (<5.7)
[2021-05-26] MEDS: oxyCODONE 15 MG TAB PO (16:41)
[2021-05-26] MEDS: Acetaminophen 500 MG TAB 1000 MG PO (21:16)
[2021-05-26] MEDS: Pregabalin 100 MG CAP PO (21:17)
[2021-05-26] MEDS: Cyclobenzaprine 10 MG TAB PO (21:31)
[2021-05-27] VITALS (9 sets, daily range): BP systolic 105–125; BP diastolic 57–88; PULSE 120–131; RESP 12–18; TEMP 36.2–36.5; O2SAT 95–98
--- NOTE | 2021-05-27 | DI.US_ITS ---
APPROVED REPORT EXAM: Comprehensive 2D, Doppler, and color-flow Echocardiogram Patient Location: In-Patient Room/Bed: [address] Operator: Catia Gentile RDCS (AE) Indications: Pulmonary embolism, volume overload Other Information Study Quality: Technically Limited. Technically limited study due to body habitus, inability to posit ion patient. Conclusion This is a technically limited study left Ventricle : The left ventricle is normal size. The left ventricular systolic function is normal. The left ventricular ejection fraction is within the normal range. There is normal left ventricular wall thickness. There is normal LV segmental wall motion. LVEF is 55%. Right Ventricle : Right ventricle is not well visualized but is grossly normal in size. Right ventric ular systolic function is grossly normal. Atria : The left atrium size is normal. The right atrium size is normal. Mitral Valve : The mitral valve is normal in structure. Trace mitral regurgitation. No evidence of mi tral valve stenosis. Great Vessels : Ascending aorta is not well visualized. Aortic arch is not well visualized. The aorti c root is normal in size. The IVC collapses <50% with inspiration. Please see remainder of study for further details. Wall motion Left Ventricle The left ventricle is normal size. The left ventricular systolic function is normal. The left ventric ular ejection fraction is within the normal range. There is normal left ventricular wall thickness. T here is normal LV segmental wall motion. There is no ventricular septal defect visualized. LVEF is 55 %. Right Ventricle Right ventricle is grossly normal in size. Right ventricular systolic function is grossly normal. Atria The left atrium size is normal. The right atrium size is normal. The interatrial septum is intact wit h no evidence for an atrial septal defect. Aortic Valve The aortic valve is normal in structure. Number of aortic valve leaflets could not be assessed. There is no aortic valvular stenosis. No aortic regurgitation is present. Mitral Valve The mitral valve is normal in structure. No evidence of mitral valve stenosis. Trace mitral regurgita tion. Tricuspid Valve The tricuspid valve is normal in structure. There is no tricuspid valve stenosis. Trace tricuspid reg urgitation. Pulmonic Valve Pulmonic valve is not well visualized. There is no pulmonic valvular stenosis. There is no pulmonic v alvular regurgitation. Great Vessels The aortic root is normal in size. Ascending aorta is not well visualized. Aortic arch is not well vi sualized. The IVC collapses <50% with inspiration. Pericardium There is no pericardial effusion. 2D Dimensions IVSD d PLAX 1.00 cm F: 0.6-1.0 LV Vol A2C d MOD 118.0 mL LVPW d PLAX 0.97 cm F: 0.6 - 1.0 LV Vol A4C d MOD 115.5 mL LVID d PLAX 5.04 cm F: 3.8 - 5.2 LV EF A4C MOD 55.5 % LVDs 3.50 cm F: 2.2 - 3.5 LV EF A2C MOD 55.4 % Ao Root d 2.71 cm F: 2.7 - 3.3 LV EF Biplane MOD 55.4 % RA Area A4C 15.40 cm2 SV 64.92 mL RA Vol/ BSA A4C s A-L 15.6 mL/m2 SV Index 27.07 mL/m2 LV EF Teichholz 57.4 % LVEF (Haro's) 55.36 % F: 54 - 74 LV Volume 83.09 mL F: 46 - 106 LV Volume Index 34.62 mL/m2 F: 29 - 61 LV Vol Biplane MOD 117.3 mL FS 30.30 % M-Mode TAPSE 1.95 cm (M/F) >1.7 Aortic Valve LVOT Area 3.33 cm2 AoV Area Vmax 2.41 cm2 LVOT Vmax 1.04 m/s AoV Area/ BSA (Vmax) 1.01 cm2/m2 LVOT Mean Rolly. 0.72 m/s SHAYY Mean Rolly. 2.39 cm2 LVOT Peak Grad 4.3 mmHg SHAYY Mean Rolly. Index 1.00 cm2/m2 LVOT Mean Grad 2.3 mmHg LVOT VTI 0.167 m LVOT Diam s 2.05 cm AoV Vmax 1.43 m/s Velocity Ratio 0.72 AoV Mean Rolly. 1.00 m/s AoV Peak Grad 8.2 mmHg LVOT SV 55.60 mL AoV Mean Grad 4.5 mmHg AoV VTI 0.196 m AoV Area VTI 2.83 cm2 AoV Area/ BSA (VTI) 1.18 cm/m2 Mitral Valve MV VTI 0.254 m MV Area VTI 2.19 (4.0-6.0 cm2) Pulmonary Valve PV Vmax 1.20 (0.5-1.5 m/s) RVOT Peak Gr. 0.91 mmHg PV Peak Grad 5.8 mmHg RVOT Mean Gr. 0.50 mmHg PV Mean Grad 3.4 mmHg RVOT VTI 0.085 m PV VTI 0.198 m RVOT Vmax 0.48 m/s Tricuspid Valve TR Peak Grad 27.4 mmHg TR Vmax 2.62 m/s RA Pressure 8.00 mmHg RVSP (TR) 35.5 mmHg
--- NOTE | 2021-05-27 | DI.US_ITS ---
Exam(s) US EXTREMITY VENOUS BI EXAM: US EXTREMITY VENOUS BI CLINICAL HISTORY: pulmonary embolism. TECHNIQUE: Grayscale, color, and doppler imaging of the deep venous system of both lower extremities was performed. COMPARISON: US US ECHOCARDIOGRAM from 05/27/2021 FINDINGS: There is no evidence of intraluminal thrombus and there is normal compression and augmentation demons trated within the common femoral veins, femoral veins, and popliteal veins of both lower extremities. In the calves the interrogated veins also exhibit normal compression/ augmentation properties. The greater saphenous veins also appear patent as do the saphenofemoral junctions bilaterally.. IMPRESSION: 1. No ultrasound evidence of DVT in either lower extremity. 2. Incidentally noted are bilateral Luo cysts both popliteal fossae. On the right side this measu res 2 x 1 x 2.5 cm. On the left side measures 3.3 x 1.1 x 2.1 cm. DATA REPOSITORY:
[2021-05-27] MEDS: oxyCODONE 15 MG TAB PO ×3 (02:12→19:32)
[2021-05-27] MEDS: Levothyroxine 75 MCG TAB PO (05:24)
[2021-05-27 07:33] LABS: HCT 36.2 % (36.0-46.0); HGB 11.8 g/dL (11.2-15.7); MCH 30.6 pg (27.0-33.0); MCHC 32.6 % (32.0-36.0); MPV 9.3 fL (8.0-11.0); Platelet Count 179 10^3/uL (130-400); RBC 3.85 10^6/uL (3.93-5.22); RDW 13.6 % (11.7-14.6); RDW-SD 46.6 fL
[2021-05-27 07:51] LABS: Anion Gap 7.2 mmol/L (3-11); BUN 9 mg/dL (7-18); CO2 28.8 mmol/L (21.0-32.0); CREATININE 0.6 mg/dL (0.55-1.02); Calcium 8.6 mg/dL (8.5-10.1); Chloride 106 mmol/L (98-107); Glucose 82 mg/dL (74-106); Magnesium 2.1 mg/dL (1.8-2.4); Potassium 3.5 mmol/L (3.5-5.1); Sodium 142 mmol/L (136-145)
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
[2021-05-27] MEDS: Acetaminophen 500 MG TAB 1000 MG PO ×3 (11:03→19:30)
[2021-05-27] MEDS: Sertraline 50 MG TAB 100 MG PO (11:04)
[2021-05-27] MEDS: Pregabalin 100 MG CAP PO ×3 (11:04→19:32)
[2021-05-27] MEDS: Rivaroxaban 15 MG TABLET PO ×2 (11:04→19:31)
[2021-05-27] MEDS: Furosemide 40 MG/4 ML VIAL IVP (11:25)
[2021-05-27] MEDS: Propranolol 10 MG TAB PO ×2 (12:12→19:32)
[2021-05-27] MEDS: Tiotropium/Olodaterol 10 PUFF INHALER 2 PUFF IH (16:24)
[2021-05-27] MEDS: Normal Saline Flush 10 ML SYR IVP ×2 (19:31→21:19)
[2021-05-27] MEDS: Cyclobenzaprine 10 MG TAB PO (19:31)
--- NOTE | 2021-05-27 20:00 | RT.EKG_ITS ---
APPROVED REPORT Exam: Resting ECG Reason for Exam: tachycardia Patient Location: I HR:129 bpm ECG Measurements Heart Rate 129 AXIS WY 106 P 251 QRSd 96 QRS 10 QT 391 T 99 QTc 572 Conclusion Atrial flutter..P axis (-45,135), rate> 99 Nonspecific repol abnormality, lateral leads...ST dep, T neg, I aVL V5 V6 Prolonged QT interval...QTc >510mS
[2021-05-27] MEDS: Metoprolol 5 MG/5 ML VIAL IVP (21:10)
[2021-05-27] MEDS: Metoprolol 25 MG TAB PO (22:22)
[2021-05-28] VITALS (11 sets, daily range): BP systolic 88–125; BP diastolic 60–82; PULSE 76–129; RESP 14–19; TEMP 35–36.6; O2SAT 95–97
--- NOTE | 2021-05-28 03:45 | RT.EKG_ITS ---
APPROVED REPORT Exam: Resting ECG Reason for Exam: afib Patient Location: I HR:70 bpm ECG Measurements Heart Rate 70 AXIS NM [id number] P [id number] QRSd 93 QRS -21 QT 457 T 261 QTc 521 Conclusion Atrial flutter with predominant 4:1 AV block...A-rate 272, multiple Ps Repol abnrm suggests ischemia, diffuse leads...ST-T neg, ant/lat/inf Prolonged QT interval...QTc >510mS
[2021-05-28] MEDS: Levothyroxine 75 MCG TAB PO (05:47)
[2021-05-28 08:10] LABS: Anion Gap 7.2 mmol/L (3-11); BUN 10 mg/dL (7-18); CO2 29.8 mmol/L (21.0-32.0); CREATININE 0.6 mg/dL (0.55-1.02); Calcium 8.9 mg/dL (8.5-10.1); Chloride 105 mmol/L (98-107); Glucose 82 mg/dL (74-106); Potassium 3.9 mmol/L (3.5-5.1); Sodium 142 mmol/L (136-145)
[2021-05-28] MEDS: oxyCODONE 15 MG TAB PO ×3 (08:20→20:39)
[2021-05-28] MEDS: Pregabalin 100 MG CAP PO ×3 (08:20→20:38)
[2021-05-28] MEDS: Sertraline 50 MG TAB 100 MG PO (08:30)
[2021-05-28] MEDS: Metoprolol CR 50 MG TABCR PO (08:30)
[2021-05-28] MEDS: Propranolol 10 MG TAB PO ×2 (08:31→20:39)
[2021-05-28] MEDS: Furosemide 40 MG/4 ML VIAL IVP (08:31)
[2021-05-28] MEDS: Rivaroxaban 15 MG TABLET PO ×2 (08:31→20:38)
[2021-05-28] MEDS: Tiotropium/Olodaterol 10 PUFF INHALER 2 PUFF IH (08:32)
--- NOTE | 2021-05-28 10:11 | PDOC.CMPRO ---
- If Service Date Differs Date of service: 05/28/21 Time of Service: 10:11 Care Management Progress Note S/O: Aparna was laying in bed when CM met with her. She was anxious, pleasant and engaged well in conversation. She shared that she is scared to go home because she is worried about having a heart attack. Per provider, he will consult cardiology tomorrow if she remains in aflutter. She is wearing telemetry and constantly checking her HR on the monitor she is wearing. CM advised her that this may be increasing her anxiety and reassured her that her HR is being closely monitored by staff. She is going to try to relax a bit and get some rest. A: 60 year old female admitted to [facility] on 05/26/21 for Pulmonary Embolism, Volume Overload. P: Anticipate Aparna will return home once medically cleared with no new [facility] services. Her daughter will drive her home via private vehicle. She will need outpatient follow ups with her PCP, Pulmonology and cardiology. New RX for Xaralto is covered by her insurance, verified by CM. CM will continue to follow.
--- NOTE | 2021-05-28 12:12 | NS.NUTBLAN_ITS ---
Date of service: 05/28/21 Time of Service: 12:13 Nutritional Consult ASSESSMENT: 60yo female admitted with cellulitis, fluid overload, ventricular hypertrophy, chronic PE as a significant part of her PMH. Meds include Acetaminophen, Furosemide, Levothyroxine, Metoprolol, Pregabalin, Propranolol, Rivaroxaban, Sertraline, Tiotrapium. Albuterol, Ruthie, Cyclobenzaprine, Ondansetron, Oxycodone, and Polyethylene glycol prn. Pt tolerating low sodium diet order and Nutrition consulted to offer education on the same. Aparna understood that lowering her sodium will help manage her condition and was reiterating that she and her will make changes to keep sodium levels down. Her current BMI is 53.1kg/m2 and as had a 5.6 kg weight shift down over admission (obviously influenced by fluid changes). Her A1C was 5.3% on 05/26/21. Diagnosis: Stage III obesity related to higher intake of convenience foods and lower activity levels AEB current BMI >50. Excessive intake of sodium related to excessive intake of ultra-processed foods AEB diet history taken as well as the resulting fluid overload leading to admission. Intervention: Low sodium nutrition education offered and graciously accepted by patient. Review of salt-free flavoring options was reviewed, along with low sodium choices within food group categories. Sample menu was given for reference and pt encouraged to call to take advantage of outpatient nutrition services along with her once home and at baseline. Monitoring/evaluation: Will follow Aparna during admission for deleterious changes in her nutrition status and await for her to engage in outpatient education to support her goals to eat healthier. Ildefonso Finney NDTR ? Water Quality Tester Time Spent in Nutritional Counseling and Treatment: 30
[2021-05-28] MEDS: Metoprolol 5 MG/5 ML VIAL IVP (12:31)
--- NOTE | 2021-05-28 14:05 | W.PM.PROGNOT ---
Date of Service Date of service: 05/28/21 Time of Service: 14:06 Assessment and Plan Assessment and plan (1) Pulmonary embolism: Status: Chronic Assessment and plan: H/o DVT treated with xarelto for 3-4 months per pt. She was first prescribed Eliquis for the previous DVT but was intolera;nt d/t GI upset. No hyoxia or R heart strain. + tachycardia. Xarelto is covered by her insurance and will initiate 15mg po BID for 21 days, then 20mg daily. Echocardiogram and BLE venous US ordered. Qualifiers: Pulmonary embolism type: multiple subsegmental (without acute cor pulmonale) Qualified Code(s): I26.94 - Multiple subsegmental pulmonary emboli without acute cor pulmonale (2) Fluid overload: Status: Acute Assessment and plan: Echocardiogram ordered. Pt doesn't drink excessive amounts of fluids but doesn't monitor her Na intake. Nutrition consulted. Cont. IV lasix; responding well with good diureses. Echo on 11/23/19 showed EF of 55-60%. Borderline dilated left ventricle. Normal wall thickness. Est RVSP is 41 mmHg. Concerned that her pulmonary hypertension has worsened. (3) COPD (chronic obstructive pulmonary disease): Status: None Assessment and plan: No current exacerbation. Qualifiers: COPD type: unspecified COPD Qualified Code(s): J44.9 - Chronic obstructive pulmonary disease, unspecified (4) Sleep apnea: Status: Acute Assessment and plan: Untreated. Will have her f/u as outpt with pulmonary medicine. Qualifiers: Sleep apnea type: unspecified type Qualified Code(s): G47.30 - Sleep apnea, unspecified (5) Pulmonary hypertension: Status: Acute Assessment and plan: Wt loss (previously in process of w/u for bariatric surgery but didn't complete) and COPD control. Now has pulmonary emboli, but at a low clot burden; still may effect her pulmonary HTN. (6) Hypothyroidism: Status: None Assessment and plan: TSH 2.6 Cont current replacement tx. (7) Atrial flutter: Status: Acute Assessment and plan: Initial EKG was normal sinus rhythm. Aflutter last PM. Given IV metoprolol initially, then po metoprolol. Initiated Metoprolol long acting 50mg po this AM. HR was in the 80's this AM, but then increased into the 120's. Gave another dose of metoprolol 25mg short acting today and increased AM dose of long-acting to 100mg. Cardiology consult tomorrow if remains in aflutter. Subjective Subjective Patient reports: no new complaints, tolerating a regular diet and afebrile; denies nausea, vomiting and shortness of breath Interval history since last seen: Improvement in anxiety but still worried about her new diagnoses and her prognosis. Exam Const General: cooperative and no acute distress Nutritional Appearance: obese Orientation: alert Eyes General: appearance normal, both eyes and all related structures Sclera: sclerae normal Neck Neck: full ROM and no JVD Resp Effort & Inspection: normal respiratory effort Auscultation: clear to auscultation bilaterally and diminished lung sounds Cardio Rate: tachycardic Rhythm: regular rhythm Heart Sounds: S1 normal GI Inspection: obesity Palpation: soft and nontender Auscultation: normal bowel sounds Skin General skin exam: no rashes or lesions noted Neuro General: no focal motor deficits Cognition: normal cognition Speech: speech normal Extrem General: no calf tenderness and pedal edema bilaterally Psych Appearance: grossly normal Mental Status: mental status grossly normal Mood: anxious mood Affect: sad Objective Last Vital Signs Temp 36.3 C L 05/28/21 07:24 Pulse 105 H 05/28/21 07:36 Resp 18 05/28/21 07:24 BP 120/82 05/28/21 07:24 Pulse Ox 97 05/28/21 07:24 Laboratory Results - last 24 hr 05/28/21 07:30 Sodium 142 Potassium 3.9 Chloride 105 Carbon Dioxide 29.8 Anion Gap 7.2 BUN 10 Creatinine 0.6 Estimated GFR/1.73 m2 >= 60.00 Glucose 82 Calcium 8.9
[2021-05-28] MEDS: Metoprolol 25 MG TAB PO (15:08)
[2021-05-28] MEDS: Acetaminophen 500 MG TAB 1000 MG PO (20:38)
[2021-05-28] MEDS: Cyclobenzaprine 10 MG TAB PO (20:38)
[2021-05-29] VITALS (18 sets, daily range): BP systolic 96–128; BP diastolic 58–80; PULSE 80–131; RESP 18–19; TEMP 36.1–36.6; O2SAT 94–98
[2021-05-29] MEDS: Metoprolol 5 MG/5 ML VIAL IVP ×2 (00:11→09:17)
[2021-05-29 05:52] LABS: Anion Gap 7.1 mmol/L (3-11); BUN 15 mg/dL (7-18); CO2 28.9 mmol/L (21.0-32.0); CREATININE 0.7 mg/dL (0.55-1.02); Calcium 8.9 mg/dL (8.5-10.1); Chloride 104 mmol/L (98-107); Glucose 84 mg/dL (74-106); Potassium 3.9 mmol/L (3.5-5.1); Sodium 140 mmol/L (136-145)
[2021-05-29] MEDS: Levothyroxine 75 MCG TAB PO (06:04)
[2021-05-29] MEDS: Pregabalin 100 MG CAP PO ×3 (08:12→20:33)
[2021-05-29] MEDS: Rivaroxaban 15 MG TABLET PO ×2 (08:12→20:33)
[2021-05-29] MEDS: oxyCODONE 15 MG TAB PO ×3 (08:12→20:33)
[2021-05-29] MEDS: Acetaminophen 500 MG TAB 1000 MG PO ×3 (08:13→20:33)
[2021-05-29] MEDS: Sertraline 50 MG TAB 100 MG PO (08:13)
[2021-05-29] MEDS: Metoprolol CR 50 MG TABCR 100 MG PO (08:13)
[2021-05-29] MEDS: Propranolol 10 MG TAB PO (08:14)
[2021-05-29] MEDS: Normal Saline Flush 10 ML SYR IVP ×2 (08:14→09:19)
[2021-05-29] MEDS: Furosemide 40 MG/4 ML VIAL IVP (08:14)
--- NOTE | 2021-05-29 10:45 | CMPROGNOTE_ITS ---
- If Service Date Differs Date of service: 05/29/21 Time of Service: 10:45 Care Management Progress Note S/O: Aparna was lying in bed when CM met with her. She was anxious, pleasant and engaged well in conversation. She has several concerns about the etiology of her increased HR and would like a cardiology tomorrow. A: 60 year old female admitted to [facility] on 05/26/21 for Pulmonary Embolism, Volume Overload. P: Anticipate Aparna will return home once medically cleared with no new [facility] services. Her daughter will drive her home via private vehicle. She will need outpatient follow ups with her PCP, Pulmonology and cardiology. New RX for Xaralto is covered by her insurance, verified by CM. CM will continue to follow.
[2021-05-29] MEDS: Metoprolol CR 50 MG TABCR PO (12:38)
--- NOTE | 2021-05-29 13:08 | NUR.NOTE ---
Nursing Note: 0915: in with primary RN, Enma Molina when administering IVP metoprolol, acting as co-signer. this RN suggests to primary RN that administration should be exceed the normal 5 minute push as pt's BP was near ordered parameter (see VS intervention). pt had also received her oral metoprolol prior to this administration. slow IVP of 2.5 mg metoprolol over approximately 5 minutes with increased VS to ensure safe BP before giving last 2.5mg over an additional 5 minutes. pt tolerated medication administration well. continue to monitor.
--- NOTE | 2021-05-29 14:56 | W.PM.PROGNOT ---
Date of Service Date of service: 05/29/21 Time of Service: 14:57 Assessment and Plan Assessment and plan (1) Pulmonary embolism: Status: Chronic Assessment and plan: H/o DVT treated with xarelto for 3-4 months per pt. She was first prescribed Eliquis for the previous DVT but was intolera;nt d/t GI upset. No hyoxia or R heart strain. + tachycardia. Xarelto is covered by her insurance and will initiate 15mg po BID for 21 days, then 20mg daily. Echocardiogram w/o evidence of right heat strain. EF of 55%. venous US of BLEs negative. Qualifiers: Pulmonary embolism type: multiple subsegmental (without acute cor pulmonale) Qualified Code(s): I26.94 - Multiple subsegmental pulmonary emboli without acute cor pulmonale (2) Fluid overload: Status: Acute Assessment and plan: Echocardigram w/o findings consistent with CHF. Pt doesn't drink excessive amounts of fluids but doesn't monitor her Na intake. Nutrition consulted. Diuresed well with IV lasix. Less SOA and significantly improved pedal edema. Change to lasix 20mg po daily. Echo on 11/23/19 showed EF of 55-60%. Borderline dilated left ventricle. Normal wall thickness. Est RVSP is 41 mmHg. Concerned that her pulmonary hypertension has worsened. (3) COPD (chronic obstructive pulmonary disease): Status: None Assessment and plan: No current exacerbation. Qualifiers: COPD type: unspecified COPD Qualified Code(s): J44.9 - Chronic obstructive pulmonary disease, unspecified (4) Sleep apnea: Status: Acute Assessment and plan: Untreated. Will have her f/u as outpt with pulmonary medicine. Qualifiers: Sleep apnea type: unspecified type Qualified Code(s): G47.30 - Sleep apnea, unspecified (5) Pulmonary hypertension: Status: Acute Assessment and plan: Wt loss (previously in process of w/u for bariatric surgery but didn't complete) and COPD control. Now has pulmonary emboli, but at a low clot burden; still may effect her pulmonary HTN. (6) Hypothyroidism: Status: None Assessment and plan: TSH 2.6 Cont current replacement tx. (7) Atrial flutter: Status: Acute Assessment and plan: Titrating metoprolol with prn IV metoprolol. HR in the 80's for a period of time today but then back to the upper 120's. If not controlled tomorrow AM will consult cardiology. May need to have EP studies and possible ablation. Subjective Subjective Patient reports: no new complaints, tolerating a regular diet, shortness of breath (Mild with exertion. ) and afebrile; denies nausea and vomiting Interval history since last seen: No CP/palpitations. Exam Const General: cooperative and no acute distress Nutritional Appearance: obese Orientation: alert Eyes General: appearance normal, both eyes and all related structures Sclera: sclerae normal Neck Neck: full ROM and no JVD Resp Effort & Inspection: normal respiratory effort Auscultation: clear to auscultation bilaterally and diminished lung sounds Cardio Rate: tachycardic Rhythm: regular rhythm Heart Sounds: S1 normal GI Inspection: obesity Palpation: soft and nontender Auscultation: normal bowel sounds Skin General skin exam: no rashes or lesions noted Neuro General: no focal motor deficits Cognition: normal cognition Speech: speech normal Extrem General: no calf tenderness and pedal edema bilaterally 1+ Psych Appearance: grossly normal Mental Status: mental status grossly normal Mood: anxious mood Affect: sad Objective Last Vital Signs Temp 36.4 C L 05/29/21 11:20 Pulse 130 H 05/29/21 11:20 Resp 19 05/29/21 11:20 BP 120/66 05/29/21 11:20 Pulse Ox 96 05/29/21 11:20 Laboratory Results - last 24 hr 05/29/21 05:36 Sodium 140 Potassium 3.9 Chloride 104 Carbon Dioxide 28.9 Anion Gap 7.1 BUN 15 Creatinine 0.7 Estimated GFR/1.73 m2 >= 60.00 Glucose 84 Calcium 8.9
[2021-05-29] MEDS: Cyclobenzaprine 10 MG TAB PO (20:33)
[2021-05-30] VITALS: PULSE 85
[2021-05-30 03:09] VITALS: BP 108/66; PULSE 82; RESP 18; TEMP 36.6; O2SAT 95
[2021-05-30] MEDS: Levothyroxine 75 MCG TAB PO (05:46)
[2021-05-30 07:09] VITALS: PULSE 75
[2021-05-30 07:41] VITALS: BP 109/69; PULSE 64; RESP 18; TEMP 36.4; O2SAT 97
--- NOTE | 2021-05-30 08:26 | CMPROGNOTE_ITS ---
- If Service Date Differs Date of service: 05/30/21 Time of Service: 08:26 Care Management Progress Note S/O: Aparna was lying in bed when CM met with her. She was anxious, pleasant and engaged well in conversation. She has several concerns about the etiology of her increased HR and would like a cardiology today. A: 60 year old female admitted to [facility] on 05/26/21 for Pulmonary Embolism, Volume Overload. P: Anticipate Aparna will return home once medically cleared with no new [facility] s ervices. Her daughter will drive her home via private vehicle. She will need outpatient follow ups with her PCP, Pulmonology and cardiology. New RX for Xaralto is covered by her insurance, verified by CM. CM will continue to follow.
[2021-05-30] MEDS: Acetaminophen 500 MG TAB 1000 MG PO (08:30)
[2021-05-30] MEDS: Metoprolol CR 50 MG TABCR 150 MG PO (08:30)
[2021-05-30] MEDS: oxyCODONE 15 MG TAB PO (08:31)
[2021-05-30] MEDS: Sertraline 50 MG TAB 100 MG PO (08:31)
[2021-05-30] MEDS: Pregabalin 100 MG CAP PO (08:31)
[2021-05-30] MEDS: Rivaroxaban 15 MG TABLET PO (08:31)
[2021-05-30] MEDS: Furosemide 20 MG TAB PO (08:32)
[2021-05-30] MEDS: Normal Saline Flush 10 ML SYR IVP (08:35)
[2021-05-30] MEDS: Tiotropium/Olodaterol 10 PUFF INHALER 2 PUFF IH (08:40)
--- NOTE | 2021-05-30 12:18 | DSE_ITS ---
Date of service: 05/30/21 Time of Service: 12:18 DS: Diagnosis Discharge Diagnosis (1) Pulmonary embolism: Status: Chronic (2) Fluid overload: Status: Acute (3) COPD (chronic obstructive pulmonary disease): Status: None (4) Sleep apnea: Status: Acute (5) Pulmonary hypertension: Status: Acute (6) Hypothyroidism: Status: None (7) Atrial flutter: Status: Acute Discharge Plan Disposition Patient Disposition: HOME Condition: Fair Discharge Details Reason For Visit: Pulmonary Embolism,Volume Overload Admit Date/Time: 05/26/21 14:03 Admit Provider: Preston Simmons Attending Provider: Preston Simmons Primary Care Provider: Storm Valencia Hospital Course Hospital Course: This is a 60 yo female with a PMH of DVT, morbid obesity, TYSON not using CPAP, COPD, previous tobacco abuse, pulmonary hypertension, hypothyroidism. She presented with dyspnea on exertion and a weight gain of 20+ lbs over the past 2 months. She does endorse dietary indiscretions by eating salty foods/not taking head to her intake. Depressed since her son last year. She has lasix at home for prn swelling of lower exts but only took a dose yesterday. No CP/palpitations. No F/C. + dry cough. No N/V/abd pain. No leg pain. Her d-dimer was elevated at 1071. CTA chest showed a small burden of distal left apical pulmonary emboli without evidence of right heart strain. + hepatic steatosis. + splenomegaly. EKG read as sinus tachycardia but was acutally aflutter. Therapeutic lovenox initiated. Lasix 80mg IV lasix administered and she diuresed 2.5L+ while still in the ED. Diuretic continued with good results. Her anticoagulant was changed to Xarelto; she had taken this with her previous LLE DVT. She endorsed GI upset with Eliquis. Her aflutter treated with metoprolol XL with prn IV dosing as well as several doses of short-acting. Her HR overall improved and she was often in the 80's, but occasionally increased into the 120's. She was asymptomatic with the HR elevations. Her echocardiogram showed an EF of 55%. The right atrium size was normal. Dr Shultz suggested the driving factor the aflutter was likely her untreated TYSON. She had a sleep study in the past as part of a work up for planned bariatric surgery. She endorsed not following up / CPAP titration. She is now motivated to once again work toward bariatric surgery and we will arrange a pulmonary appt with Dr Ray. Follow up with PCP in 1 week. Home Meds and New Rx's Prescriptions: New Xarelto DVT-PE Treat 30d Start 15 mg (42)- 20 mg (9) tablets,dose pack See Rx Instructions .ROUTE .COMPLEX Qty: 51 RF: 0 No Action acetaminophen [Mapap (acetaminophen)] 500 mg capsule 1,000 mg PO TID RF: 0 oxycodone 5 mg tablet 15 mg PO TID PRNRF: 0 furosemide 20 mg tablet 20 mg PO DAILY PRNRF: 0 Vitamin C 1,000 mg tablet extended release 2,000 mg PO DAILY RF: 0 levothyroxine 75 MCG tablet 75 mcg PO DAILY RF: 0 albuterol sulfate 8.5 GM HFA aerosol inhaler 2 puff Inhalation PRN RF: 0 pregabalin [Lyrica] 100 MG capsule 100 mg PO TID RF: 0 sertraline 100 mg Tablet 100 mg PO DAILY RF: 0 cyclobenzaprine 10 mg tablet 10 mg PO HS PRN PRNRF: 0 Stiolto Respimat 2.5-2.5 mcg/actuation Mist 2 puff INHALATION DAILY RF: 0 Discharge Instructions Instructions: Atrial Flutter (DC), Pulmonary Embolism (GEN), Sleep Apnea (GEN) Stand Alone Forms: Nursing Discharge Form Referrals: Collette Ray MD [ [facility] STAFF PHYSICIAN] - 07/29/21 10:00 am (Obesity, New small burden pulmonary emboli, TYSON.) Storm Valencia MD [Primary Care Provider] - (Please call to make a follow up appontment.) Activity:: Activity as Tolerated Equipment/Supplies:: No Equipment Needed Diet:: Low Sodium Discharge Orders Discharge Orders: Discharge Order (Routine); Ordered 05/30/21 Ordered By: Preston Simmons Discharge Data Discharge Date/Time-TO BE ENTERED AT DEPARTURE: 05/30/21 13:50 DS: Summary Time Spent with Patient providing and/or coordinating discharge services: Greater than 30 minutes Status at Discharge Functional status at discharge: independent ambulation Overall status at discharge: patient is progressing back to baseline Mental Status: mental status grossly normal Speech and Movement: speech and movement normal Mood: congruent mood Affect: normal affect (mildly anxious) Exam Psych Mental Status: mental status grossly normal Speech and Movement: speech and movement normal Mood: congruent mood Affect: normal affect (mildly anxious) DS: Data Vitals/I&O Vitals and I&O: Vital Signs Temperature 36.4 C L 05/30/21 07:41 Temperature Source Tympanic 05/30/21 07:41 Pulse 64 05/30/21 07:41 Pulse Rhythm Irregular 05/30/21 05:58 Pulse 135 H 05/26/21 15:30 Respiratory Rate 18 05/30/21 07:41 Respiratory Effort Non-Labored 05/30/21 05:58 Respiratory Depth Normal 05/30/21 05:58 Respiratory Pattern Normal 05/30/21 05:58 Blood Pressure 109/69 05/30/21 07:41 Blood Pressure Mean 96 05/26/21 14:00 Blood Pressure Position Sitting 05/26/21 10:01 Pulse Oximetry 97 05/30/21 07:41 Oxygen Delivery Method Room Air 05/30/21 07:41 Oxygen Flow Rate 0 05/30/21 07:41 Pain Level 6 05/30/21 08:31 Comment 05/29/21 09:34 Intake & Output 05/29/21 05/30/21 05/30/21 23:59 11:59 23:59 Intake Total 360 / 600 Output Total 700 / 700 Balance 360 / -1300 -700 / -700 Weight 139.6 kg Intake: Oral 360 / 600 Output: Urine 700 / 700 Other: Urine Color Yellow Urine Appearance Clear Clear Urine Odor Normal Comment Patient is independent in the bathroom. No GI/ complaints. pT said she also peed 2 more times before this 400. Voiding Methods Toilet Toilet PFSH All Active Problems Atrial flutter (Acute) Cough (Acute) Cellulitis (Acute) Pulmonary embolism (Chronic) Fluid overload (Acute) Ventricular hypertrophy determined by echocardiography (Acute) Sleep apnea (Acute) Multiple rib fractures (Acute) Intractable pain (Acute) Pulmonary hypertension (Acute) Medical History Anxiety with depression Asymptomatic varicose veins At risk for domestic abuse Benign neoplasm of uvula Bilateral leg pain Cholelithiasis Depression Disequilibrium Dyspnea on exertion Foot callus History of rectal bleeding Hx of thrombophlebitis Hypoxemia Knee pain Loss of balance Lymphadenopathy Morbid obesity Myalgia Obstructive sleep apnea Osteoarthritis Osteoarthritis of knee Osteoarthritis of knees, bilateral Plantar wart, left foot Reactive depression Resting tremor Right shoulder pain Sciatica Sciatica of left side Stiffness in joint Tremor Trichotillomania Unexplained falls Varicose veins of both lower extremities Venous insufficiency of right leg Vitamin D deficiency Weakness of right leg Surgical History Colonoscopy - MAC (02/01/18) Social History Smoking/Tobacco Use Status: Current-Occasional Tobacco Type: cigarettes Smoking risk assessment performed?: Yes Alcohol Intake: former Drug use: Never Do you feel safe at home: Yes Do you feel safe in your relationship?: Yes
[2021-05-30 12:22] VITALS: PULSE 126
--- NOTE | 2021-05-30 13:13 | PDOC.CMDIS ---
- If Service Date Differs Date of service: 05/30/21 Time of Service: 13:13 LACE Index Scoring Tool - Questions: Length of Stay (in days): 4 - 6 Acuity (Admit via E.D.?): Yes Comorbidities: Chronic Pulmonary Disease E.D. Visits: 2 - Answers: Total Score: 11 Risk of Readmission: High Risk Care Management Discharge Reason for Hospitalization: Pulmonary Embolism, Volume Overload Discharge Plan: Discharge home via private vehicle with family. Follow up with community providers and discharge plan of care as prescribed. Appointments with pulmonology and PCP were scheduled prior to discharge. Patient/Family Education Needs: Review discharge instructions, medications, limitations and plan to follow up with community providers. ask me three.
--- NOTE | 2021-05-30 14:39 | CHAPLAIN ---
Aparna was sitting on the edge of her bed when I visited. She is anxious about her fast heart-rate, and worried about being safe going home. She's been here five days. 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 Her son Sinan from a drug overdose in , after being clean for three years. His birthday is in two days. Aparna said she is looking for a sign from Sinan that he is okay. Since her son's , Aparna said has isolated herself, doesn't get out and doesn't exercise. She would like to start eating better and exercising again. She has a treadmill at home too. We talked about using Sinan's birthday as a good day to start anew. Aparna said she went to [employer] as a kid, with a friend, but doesn't attend. We talked about being close to God anywhere. Dr. Johnson came in while I was there to let Aparna know she's being discharged. Her will pick her up I gave her a prayer shawl.
== END 2021-05-30 13:50 | disposition home or self-care (01) | DRG 176 ==
LOC: ER 14:22 → MS 15:36
PROVIDERS: Admitting Provider Family Medicine; Emergency Provider Physician Assistant; PCP Internal Medicine; Visit Provider Family Medicine
DX: I26.94 Multiple subsegmental thrombotic pulmonary emboli without acute cor pulmonale (principal); Z68.43 Body mass index [BMI] 50.0-59.9, adult; I48.92 Unspecified atrial flutter; E87.70 Fluid overload, unspecified; J44.9 Chronic obstructive pulmonary disease, unspecified; I27.20 Pulmonary hypertension, unspecified; E03.9 Hypothyroidism, unspecified; E66.01 Morbid (severe) obesity due to excess calories; G47.33 Obstructive sleep apnea (adult) (pediatric); K76.0 Fatty (change of) liver, not elsewhere classified; Z86.718 Personal history of other venous thrombosis and embolism; Z87.891 Personal history of nicotine dependence
CPT/HCPCS: 36415; 71275; 80048; 80053; 85027; 87635; 93005; 93306; 94640; 96374; 99291; 71046; 81003; 83036; 83735; 83880; 84443; 84484; 85025; 85379; 85610; 85730; 93010; 93970; 99222; 99232; 99233; 99239; J1650; J1940; J3490

== ENCOUNTER → 2021-05-30 09:13 | Outpatient (BNVA) | payer MEDICARE, MEDICAID, SELFPAY | PROVIDERS: PCP Internal Medicine; Referring Provider Internal Medicine; Visit Provider Internal Medicine Cardiovascular Disease | DX: R69 Illness, unspecified (principal) ==

== ENCOUNTER 2021-06-19 04:00 | Outpatient (CLI) | payer MEDICARE, MEDICAID, SELFPAY ==
[2021-06-19 15:09] LABS: HCT 41.3 % (36.0-46.0); HGB 13.5 g/dL (11.2-15.7); MCH 30.2 pg (27.0-33.0); MCHC 32.7 % (32.0-36.0); MCV 92.4 fL (80-95); MPV 9.7 fL (8.0-11.0); Platelet Count 208 10^3/uL (130-400); RBC 4.47 10^6/uL (3.93-5.22); RDW-SD 44.6 fL; WBC 6.14 10^3/uL (4.4-10.8)
[2021-06-19 16:51] LABS: Anion Gap 7.7 mmol/L (3-11); BUN 14 mg/dL (7-18); CO2 27.3 mmol/L (21.0-32.0); CREATININE 0.7 mg/dL (0.55-1.02); Calcium 8.6 mg/dL (8.5-10.1); Chloride 102 mmol/L (98-107); Glucose 99 mg/dL (74-106); NT-proBNP 670 pg/mL (<300); Potassium 4.5 mmol/L (3.5-5.1); Sodium 137 mmol/L (136-145)
== END 2021-06-19 04:01 | disposition home or self-care (01) ==
LOC: LBO 04:00
PROVIDERS: PCP Internal Medicine; Visit Provider Internal Medicine
DX: I48.92 Unspecified atrial flutter (principal); G47.33 Obstructive sleep apnea (adult) (pediatric); J44.9 Chronic obstructive pulmonary disease, unspecified; Z86.711 Personal history of pulmonary embolism
CPT/HCPCS: 36415; 80048; 85027; 83880

== ENCOUNTER 2021-06-27 09:32 | Outpatient (CLI) | payer MEDICARE, MEDICAID, SELFPAY ==
--- NOTE | 2021-06-27 09:30 | RT.EKG_ITS ---
APPROVED REPORT Exam: Resting ECG Reason for Exam: aflutter Patient Location: O HR:104 bpm ECG Measurements Heart Rate 104 AXIS TN [id number] P [id number] QRSd 110 QRS 10 QT 421 T 69 QTc 554 Conclusion Atrial flutter...A-rate 245 Low voltage, precordial leads...precordial leads <1.0mV Nonspecific repol abnormality, lateral leads...ST dep, T neg, I aVL V5 V6
== END 2021-06-27 09:33 | disposition home or self-care (01) ==
LOC: DI.CARD 09:33
PROVIDERS: PCP Internal Medicine; Visit Provider Internal Medicine Cardiovascular Disease
DX: I48.92 Unspecified atrial flutter (principal); R94.31 Abnormal electrocardiogram [ECG] [EKG]
CPT/HCPCS: 93010

== ENCOUNTER → 2021-06-27 10:39 | Outpatient (BNVA) | payer MEDICARE, MEDICAID, SELFPAY | PROVIDERS: PCP Internal Medicine; Referring Provider Internal Medicine; Visit Provider Internal Medicine Cardiovascular Disease | DX: I48.92 Unspecified atrial flutter (principal); I50.9 Heart failure, unspecified; J44.9 Chronic obstructive pulmonary disease, unspecified; Z87.891 Personal history of nicotine dependence; I11.0 Hypertensive heart disease with heart failure | CPT/HCPCS: 93005; 99204; 99214 ==

== ENCOUNTER 2021-07-02 01:40 | Outpatient (CLI) | payer MEDICARE, MEDICAID, SELFPAY ==
[2021-07-02 13:42] LABS: Source Nasal/Nares
[2021-07-02 18:07] LABS: COVID-19 PCR Negative (Negative)
== END 2021-07-02 01:41 | disposition home or self-care (01) ==
LOC: LBO 01:40
PROVIDERS: PCP Internal Medicine; Visit Provider Internal Medicine Cardiovascular Disease
DX: Z20.822 Contact with and (suspected) exposure to COVID-19 (principal)
CPT/HCPCS: 87635

== ENCOUNTER 2021-07-04 07:26 | Day surgery (SDC) | payer MEDICARE, MEDICAID, SELFPAY ==
--- NOTE | 2021-07-04 07:04 | ANES.PREOP_ITS ---
General Info Date of Service Date Performed: 07/04/21 Height: 5 ft 4 in Weight: 136.985 kg Body Mass Index (BMI): 51.8 Surgical Procedure: Operation Date: 07/04/21 09:00 Proposed Procedures Side Surgeon p Cardioversion Lalitha Shultz MD Meds Allergies and Home Medications Allergies Allergy/AdvReac Type Severity Reaction Status Date / Time bupropion [From Wellbutrin] AdvReac Intermediate Nausea Verified 07/04/21 08:04 Home Medication Medication Instructions Recorded albuterol sulfate 2 puff INHALATION PRN 11/14/13 levothyroxine 75 mcg PO DAILY 11/14/13 pregabalin [Lyrica] 100 mg PO TID 01/08/18 sertraline 100 mg PO DAILY 06/12/19 Stiolto Respimat 2 puff INHALATION DAILY 03/26/20 acetaminophen 500 mg capsule 1,000 mg PO TID cap 03/07/21 ascorbic acid (vitamin C) 1,000 mg 2,000 mg PO DAILY tab 03/07/21 tablet,extended release oxycodone 5 mg tablet 15 mg PO TID PRN tab 03/07/21 rivaroxaban [Xarelto DVT-PE Treat See Rx Instructions .ROUTE 05/26/21 30d Start] .COMPLEX #51 dose pk cyclobenzaprine 10 mg tablet 10 mg PO HS tab 06/27/21 metoprolol succinate 100 mg 150 mg PO BID tab 06/27/21 tablet,extended release 24 hr torsemide 20 mg tablet 20 mg PO DAILY #90 tab 06/27/21 Current Visit Medications: Current Medications Generic Name Dose Route Start Last Admin Trade Name Freq PRN Reason Stop Dose Admin Sodium Chloride 1,000 mls @ 30 mls/hr 07/04/21 06:00 Saline 1000ml Bag IV INFUSION SYDNI IV Miscellaneous Supplies 1 each 07/04/21 06:00 Iv Access IV 08/02/21 23:59 DIRECTED SYDNI Sodium Chloride 0 ml 07/04/21 06:00 Normal Saline Flush 10 Ml Syr IV 08/02/21 23:59 PRN PRN PFSH Active Problems Active Problems: Problem Status Onset Code Anxiety with depression F41.8 Atrial flutter I48.92 Cough R05.9 Cellulitis L03.90 Pulmonary embolism I26.99 Fluid overload E87.70 Ventricular hypertrophy determined by echocardiography I51.7 Sleep apnea G47.30 Multiple rib fractures S22.49XA Intractable pain R52 Pulmonary hypertension I27.20 Medical History Medical History Asymptomatic varicose veins At risk for domestic abuse Benign neoplasm of uvula Bilateral leg pain Cholelithiasis Depression Disequilibrium Dyspnea on exertion Foot callus History of rectal bleeding Hx of thrombophlebitis Hypoxemia Knee pain Loss of balance Lymphadenopathy Morbid obesity Myalgia Obstructive sleep apnea Osteoarthritis Osteoarthritis of knee Osteoarthritis of knees, bilateral Plantar wart, left foot Reactive depression Resting tremor Right shoulder pain Sciatica Sciatica of left side Stiffness in joint Tremor Trichotillomania Unexplained falls Varicose veins of both lower extremities Venous insufficiency of right leg Vitamin D deficiency Weakness of right leg Surgical History Surgical History Colonoscopy - MAC (02/01/18) Hx of tubal ligation Tobacco Smoking/Tobacco Use Status: Former Tobacco Use Alcohol Alcohol Intake: former Substance Use Substance use: Never Substance use type: does not use Vital Signs and Lab Results Lab Results Blood Type / Crossmatch: No Data to Display Complete Blood Count: White Blood Count 6.14 10^3/uL (4.4-10.8) 06/19/21 14:55 06/19/21 Red Blood Count 4.47 10^6/uL (3.93-5.22) 06/19/21 14:55 06/19/21 Hemoglobin 13.5 g/dL (11.2-15.7) 06/19/21 14:55 06/19/21 Hematocrit 41.3 % (36.0-46.0) 06/19/21 14:55 06/19/21 Platelet Count 208 10^3/uL (130-400) 06/19/21 14:55 06/19/21 Complete Metabolic Panel: Sodium Level 137 mmol/L (136-145) 06/19/21 14:55 06/19/21 Potassium Level 4.5 mmol/L (3.5-5.1) 06/19/21 14:55 06/19/21 Chloride Level 102 mmol/L (98-107) 06/19/21 14:55 06/19/21 Carbon Dioxide Level 27.3 mmol/L (21.0-32.0) 06/19/21 14:55 06/19/21 Blood Urea Nitrogen 14 mg/dL (7-18) 06/19/21 14:55 06/19/21 Creatinine 0.7 mg/dL (0.55-1.02) 06/19/21 14:55 06/19/21 Estimated GFR/1.73 m2 >= 60.00 (mL/min/1.73m2) 06/19/21 14:55 06/19/21 Calcium Level 8.6 mg/dL (8.5-10.1) 06/19/21 14:55 06/19/21 Glucose Level 99 mg/dL (74-106) 06/19/21 14:55 06/19/21 Liver Function Panel: No Data to Display Coagulation Panel: No Data to Display Cardiac Panel: PU-Aoh-T-Type Natriuretic Peptide 670 pg/mL (<300) H 06/19/21 Arterial Blood Gas: No Data to Display Venous Blood Gas: No Data to Display Pancreas Panel: No Data to Display Thyroid Panel: No Data to Display Infectious Disease: Coronavirus (COVID-19)(PCR) Negative (Negative) 07/02/21 09:58 07/02/21 Coronavirus 2019 Source Nasal/Nares 07/02/21 09:58 07/02/21 Blood Cultures: No Data to Display Toxicology Panel: No Data to Display Imaging and Studies Imaging and Studies Study information below may be from another EMR and interpreted by another provider. Please see original notes in EMR for more complete details. EKG Summary: Conclusion Atrial flutter...A-rate 245 Low voltage, precordial leads...precordial leads <1.0mV Nonspecific repol abnormality, lateral leads...ST dep, T neg, I aVL V5 V6 Echocardiogram Summary: Conclusion This is a technically limited study left Ventricle : The left ventricle is normal size. The left ventricular systoli c function is normal. The left ventricular ejection fraction is within the normal range. There is normal left ventricular wall thickness. There is normal LV segmental wall motion. LVEF is 55%. Right Ventricle : Right ventricle is not well visualized but is grossly normal in size. Right ventricular systolic function is grossly normal. Atria : The left atrium size is normal. The right atrium size is normal. Mitral Valve : The mitral valve is normal in structure. Trace mitral regurgitation. No evidence of mitral valve stenosis. Great Vessels : Ascending aorta is not well visualized. Aortic arch is not well visualized. The aortic root is normal in size. The IVC collapses <50% with inspiration. Anesthesia Assessment and Plan Anesthesia History Personal History: No History of Anesthesia Complications Family History: No Family History of Anesthesia Complications Exercise Tolerance Exercise Tolerance: Metabolic Equivalents>4 Pertinent Negatives Pertinent Negatives: No Symptoms of GERD and No History of CVA/TIA Cardiac & Pulmonary Exam Cardiac Exam: Normal S1/S2 Heart Sounds Pulmonary Exam: Clear Bilateral Breath Sounds Implantable Cardiac Device Does patient have a Pacemaker or an ICD?: No Airway Exam Known Difficult Airway: No Mallampati Class: 3 Mouth Opening: Normal (> 3cm) Thyromental Distance: Greater than 3 cm Neck Range of Motion: Full ROM Neck Circumference: Normal Teeth Condition: Normal Dentition ASA Classification ASA Score: ASA 3 Emergency Case?: No NPO Status NPO Status: NPO Clears >2 hours, Solids >8 hours Anesthesia Plan Resuscitation Status: Full Code Anesthesia Technique: General Anesthesia Airway Planned: Natural Airway Monitors Used: Standard Monitors Preoperative Comments:: Patients daughter notes tremors and question of Parkinson?s (not diagnosed yet)
--- NOTE | 2021-07-04 07:30 | RT.EKG_ITS ---
APPROVED REPORT Exam: Resting ECG Reason for Exam: Cardioverion Pre-Op Patient Location: O HR:96 bpm ECG Measurements Heart Rate 96 AXIS AL [id number] P [id number] QRSd 97 QRS -15 QT 324 T 223 QTc 414 Conclusion Atrial flutter...A-rate 241 Repol abnrm suggests ischemia, diffuse leads...ST-T neg, ant/lat/inf
[2021-07-04 07:35] VITALS: BP 115/87; PULSE 119; RESP 16; TEMP 36.8; O2SAT 98
[2021-07-04] MEDS: Normal Saline 1,000 ML 30 ML IV (08:24)
[2021-07-04 08:53] VITALS: BMI 51.8
--- NOTE | 2021-07-04 09:00 | RT.EKG_ITS ---
APPROVED REPORT Exam: Resting ECG Reason for Exam: Cardioversion Post-op Patient Location: O HR:67 bpm ECG Measurements Heart Rate 67 AXIS CO 197 P 48 QRSd 98 QRS -15 QT 427 T 258 QTc 451 Conclusion Sinus rhythm...normal P axis, V-rate 60- 99 Nonspecific T abnormalities, lateral leads...T <-0.10mV, I aVL V5 V6
[2021-07-04 09:15] VITALS: BP 118/77; PULSE 67; RESP 17; TEMP 36.1; O2SAT 98
--- NOTE | 2021-07-04 09:17 | W.CARDVER ---
Date of service: 07/04/21 Time of Service: 09:17 Cardioversion DATE OF PROCEDURE: 07/04/21 PRE-OP DIAGNOSES: Atrial flutter/fibrillation POST-OP DIAGNOSES: same Anesthesia Type: MAC Indications: Atrial flutter Procedure Description: Patient was sedated by the anesthesiologist. She had anterior and posterior ZOLL pads placed. When adequate anesthesia was achieved, an initial synchronized shock 150 W seconds was delivered. She appeared then to have atrial flutter rate in the upper 40s. 2 additional shocks at 151 seconds were delivered with ultimate latter-day of sinus rhythm in the low 60s The patient tolerated the procedure without difficulty and was returned to same-day surgery to recover see
--- NOTE | 2021-07-04 09:18 | W.PM.DSUDISC ---
Discharge Plan Disposition Patient Disposition: HOME Condition: Stable Discharge Details Attending Provider: Lalitha Shultz Primary Care Provider: Storm Valencia Home Meds and New Rx's Prescriptions: New metoprolol succinate 100 mg tablet extended release 24 hr 100 mg PO BID Qty: 180 RF: 3 Continued torsemide 20 mg tablet 20 mg PO DAILY Qty: 90 RF: 3 acetaminophen [Mapap (acetaminophen)] 500 mg capsule 1,000 mg PO TID RF: 0 oxycodone 5 mg tablet 15 mg PO TID PRNRF: 0 Vitamin C 1,000 mg tablet extended release 2,000 mg PO DAILY RF: 0 albuterol sulfate 8.5 GM HFA aerosol inhaler 2 puff Inhalation PRN RF: 0 pregabalin [Lyrica] 100 MG capsule 100 mg PO TID RF: 0 sertraline 100 mg Tablet 100 mg PO DAILY RF: 0 cyclobenzaprine 10 mg tablet 10 mg PO HS RF: 0 Stiolto Respimat 2.5-2.5 mcg/actuation Mist 2 puff INHALATION DAILY RF: 0 Xarelto DVT-PE Treat 30d Start 15 mg (42)- 20 mg (9) tablets,dose pack See Rx Instructions .ROUTE .COMPLEX Qty: 51 RF: 0 Discontinued metoprolol succinate 100 mg tablet extended release 24 hr 150 mg PO BID RF: 0 No Action levothyroxine 75 MCG tablet 75 mcg PO DAILY RF: 0 Discharge Instructions Stand Alone Forms: DSU Cardioversion Post-Op Discharge Orders Discharge Orders: Discharge Order (Routine); Ordered 07/04/21 Ordered By: Lalitha Shultz
[2021-07-04 09:20] VITALS: BP 105/69; PULSE 67; RESP 16; TEMP 36.2; O2SAT 99
[2021-07-04 09:25] VITALS: BP 95/65; PULSE 71; RESP 16; TEMP 36.2; O2SAT 97
--- NOTE | 2021-07-04 09:37 | W.ANESPOSTOP ---
Postoperative Evaluation Date, Time and Location Date Performed: 07/04/21 Time Performed: 09:37 Patient Location: Day Surgery Unit Vital Signs Most Recent Imported Vital Signs: Most Recent Vital Signs Temp Pulse Resp BP Pulse Ox 36.2 C L 71 16 95/65 L 97 07/04/21 09:25 07/04/21 09:25 07/04/21 09:25 07/04/21 09:25 07/04/21 09:25 Pain Score Most Recent Pain Score: Most Recent Pain Score Pain Level 0 07/04/21 09:25 Assessment Mental Status: Awake (Alert & Oriented to Patient Baseline) Airway and Respiratory Function: Patent airway with normal (patient baseline) respiratory exam Cardiovascular Function: Hemodynamically Stable Hydration Status: Adequately Hydrated Nausea & Vomiting: No Nausea or Vomiting Pain: Pt. Denies Any Pain Peripheral Nerve Block: Patient did not receive a nerve block
[2021-07-04 09:44] VITALS: BP 104/69; PULSE 68; RESP 16; TEMP 36.4; O2SAT 99
[2021-07-04 10:03] VITALS: BP 111/69; PULSE 73; RESP 16; TEMP 36.5; O2SAT 99
== END 2021-07-04 10:30 | disposition home or self-care (01) ==
PROVIDERS: PCP Internal Medicine; Visit Provider Internal Medicine Cardiovascular Disease
PROC: 5A2204Z Restoration of Cardiac Rhythm, Single (ICD-10-PCS; CPT 92960; principal; 2021-07-04 09:00)
DX: I48.92 Unspecified atrial flutter (principal); I48.91 Unspecified atrial fibrillation; I50.30 Unspecified diastolic (congestive) heart failure; G47.33 Obstructive sleep apnea (adult) (pediatric); J44.9 Chronic obstructive pulmonary disease, unspecified
CPT/HCPCS: 92960; 93005; 93010; J2001

== ENCOUNTER 2021-07-23 09:41 | Outpatient (CLI) | payer MEDICARE, MEDICAID, SELFPAY ==
--- NOTE | 2021-07-23 10:15 | RT.EKG_ITS ---
APPROVED REPORT Exam: Resting ECG Reason for Exam: a flutter Patient Location: O HR:55 bpm ECG Measurements Heart Rate 55 AXIS MN 156 P 25 QRSd 108 QRS -1 QT 461 T 16 QTc 441 Conclusion Sinus rhythm...normal P axis, V-rate 50- 99 Normal Electrocardiogram
== END 2021-07-23 09:42 | disposition home or self-care (01) ==
LOC: DI.CARD 10:25
PROVIDERS: PCP Internal Medicine; Referring Provider Internal Medicine; Visit Provider Internal Medicine Cardiovascular Disease
DX: I48.92 Unspecified atrial flutter (principal)
CPT/HCPCS: 93010

== ENCOUNTER → 2021-07-23 09:41 | Outpatient (BNVA) | payer MEDICARE, MEDICAID, SELFPAY | PROVIDERS: PCP Internal Medicine; Referring Provider Internal Medicine; Visit Provider Internal Medicine Cardiovascular Disease | DX: I48.92 Unspecified atrial flutter (principal); J44.9 Chronic obstructive pulmonary disease, unspecified; E66.9 Obesity, unspecified; G47.30 Sleep apnea, unspecified | CPT/HCPCS: 93005; 99214; 99213 ==

== ENCOUNTER 2021-08-06 04:13 | Outpatient (CLI) | payer MEDICARE, MEDICAID, SELFPAY ==
[2021-08-06] MEDS: Albuterol HFA 18 GM 200 PUFF INH IH (11:48)
[2021-08-06] MEDS: Inhaler, Assist Device 1 EACH MC (11:48)
== END 2021-08-06 04:14 | disposition home or self-care (01) ==
LOC: RT 04:14
PROVIDERS: PCP Internal Medicine; Visit Provider Student in an Organized Health Care Education/Training Program
DX: J44.9 Chronic obstructive pulmonary disease, unspecified (principal); R06.09 Other forms of dyspnea; R06.2 Wheezing; Z86.711 Personal history of pulmonary embolism; Z87.891 Personal history of nicotine dependence
CPT/HCPCS: 94060; 94726; 94729

== ENCOUNTER 2021-09-10 01:12 | Outpatient (CLI) | payer MEDICARE, MEDICAID, SELFPAY ==
--- NOTE | 2021-09-10 08:00 | DI.CTLCSR_ITS ---
Exam(s) CT CHEST LUNG CANCER SCREEN EXAM: CT CHEST LUNG CANCER SCREEN CLINICAL HISTORY: Screening for lung cancer, PERSONAL HX NICOTINE DEPENDENCE, Z87.891 TECHNIQUE: Imaging Protocol: Axial computed tomography images with coronal and sagittal reformatted images were created and reviewed COMPARISON: CT CT CHEST WO from 03/29/2020 FINDINGS: Tracheobronchial tree: Patent where visualized. Pulmonary parenchyma: No consolidation or dominant measurable mass. Scarring in the lung bases. Lung Nodules: None. Mediastinum and Nataly: No dominant adenopathy or fluid collection. The esophagus is unremarkable. Thyroid gland: Unremarkable. Lymph nodes: Unremarkable. Pleura: No effusion or pneumothorax. Heart: The heart is not dilated. No coronary artery calcifications are seen. No pericardial effusion . Aorta: Thoracic aorta non-dilated. Upper abdomen: Unremarkable. Soft Tissues: Unremarkable. Bones: Within normal limits. IMPRESSION: No pulmonary nodules. Lung RADS Cat 1 - Negative: No nodules and definitely benign nodules Lung-RADS 1.0 CATEGORIES: Category 0 - Prior chest CT exam(s) being located for comparison. Category 1 - Annual screening in 12 months. No nodules or definitely benign nodules. Category 2 - Annual screening in 12 months. Benign appearance. Nodules with low likelihood of becomin g active cancer. Category 3 - 6-month follow-up. Probably benign. Short-term follow-up suggested. Nodules with low lik elihood of becoming active cancer. Category 4A - 3-month follow-up and CT/PET if >8 mm in size. Suspicious finding. Findings which requi re additional testing. Category 4B - Findings which require additional testing and tissue sampling. Suspicious finding. Category 4X - Category 3 or 4 nodules with additional features or imaging findings that increases the suspicion of malignancy. Modifier S- Potentially clinically significant finding. (Non lung cancer) RADIATION DOSE DELIVERED: 80mGy.cm Total DLP !Error CTDIvol 80mGy.cm Total DLP 2.21mGy CTDIvol DATA REPOSITORY: All CT scans at this facility are submitted to the National Radiology Data Registry (NRDR) Dose Index Registry (DIR) with the [employer] ([employer]). RADIATION OPTIMIZATION: All CT scans at this facility use at least one of these dose optimization te chniques: automated exposure control; mA and/or kV adjustment per patient size (includes targeted exa ms where dose is matched to clinical indication); or iterative reconstruction.
== END 2021-09-10 01:32 ==
PROVIDERS: PCP Internal Medicine; Visit Provider Student in an Organized Health Care Education/Training Program
DX: Z87.891 Personal history of nicotine dependence (principal); Z12.2 Encounter for screening for malignant neoplasm of respiratory organs
CPT/HCPCS: 71271

== ENCOUNTER 2021-09-10 01:12 | Outpatient (CLI) | payer MEDICARE, MEDICAID, SELFPAY ==
--- NOTE | 2021-09-10 | DI.MAMMO_ITS ---
Exam(s) MAMMO SCREENING EXAM: MAMMO SCREENING CLINICAL HISTORY: SCREENING FOR BREAST CANCER Z12.39 TECHNIQUE: Bilateral full field digital CC and MLO mammographic images were obtained with 3D tomosyn thesis and utilizing computer aided detection (CAD). COMPARISON: Available for comparison. FINDINGS: Masses/Architectural Distortion: None seen. Microcalcifications: No suspicious pleomorphic-type are seen. Skin Thickening/Nipple Retraction: None. IMPRESSION: 1. No significant interval change with no specific features of malignancy noted. 2. Unless there is more urgent need, screening mammography is recommended, as per [employer] guidelines. BI-RADS Category 1 - Negative Breast Density - Category A - Almost entirely fatty Breast density category C or D implies that the patient has dense breast tissue. Dense breast tissue is very common and is not abnormal but dense breast tissue can make it harder to find cancer on a ma mmogram. Also, dense breast tissue may increase their breast cancer risk. This information about the result of the mammogram report was provided to the patient to raise their awareness. Use this report when you speak with the patient about their risks for breast cancer, which includes their family hist ory. At that time, you may recommend for more screening tests (Ultrasound or MRI) as they might be us eful based on their risk. A negative radiographic report should not delay biopsy if a dominant or clinically suspicious mass is present. Up to ten percent of cancers are not identified on mammography. A negative report may reinforce clinical impression. Adenosis and dense breasts may obscure an underlying neoplasm. False positive reports average 6 to 10%. Patient will receive a letter notifying them of these results.
== END 2021-09-10 01:32 ==
PROVIDERS: PCP Internal Medicine; Visit Provider Internal Medicine
DX: Z12.31 Encounter for screening mammogram for malignant neoplasm of breast (principal)
CPT/HCPCS: 77063; 77067

== ENCOUNTER 2021-10-21 08:47 | Outpatient (CLI) | payer MEDICARE, MEDICAID, SELFPAY ==
--- NOTE | 2021-10-21 08:45 | RT.EKG_ITS ---
APPROVED REPORT Exam: Resting ECG Reason for Exam: aflutter Patient Location: O HR:60 bpm ECG Measurements Heart Rate 60 AXIS MN [id number] P [id number] QRSd 103 QRS 2 QT 432 T 18 QTc 432 Conclusion Sinus Rhythm Normal Electrocardiogram
== END 2021-10-21 08:48 | disposition home or self-care (01) ==
LOC: DI.CARD 08:48
PROVIDERS: PCP Internal Medicine; Visit Provider Internal Medicine Cardiovascular Disease
DX: I48.92 Unspecified atrial flutter (principal)
CPT/HCPCS: 93010

== ENCOUNTER → 2021-10-21 09:27 | Outpatient (BNVA) | payer MEDICARE, MEDICAID, SELFPAY | PROVIDERS: PCP Internal Medicine; Visit Provider Internal Medicine Cardiovascular Disease | DX: I48.92 Unspecified atrial flutter (principal); J44.9 Chronic obstructive pulmonary disease, unspecified; E66.9 Obesity, unspecified; G47.30 Sleep apnea, unspecified | CPT/HCPCS: 93005; 99214; 99213 ==

== ENCOUNTER → 2022-04-28 09:31 | Outpatient (BNVA) | payer MEDICARE, MEDICAID, SELFPAY | PROVIDERS: PCP Internal Medicine; Referring Provider Internal Medicine; Visit Provider Internal Medicine Cardiovascular Disease | DX: I48.92 Unspecified atrial flutter (principal); E66.9 Obesity, unspecified; G47.33 Obstructive sleep apnea (adult) (pediatric); J44.9 Chronic obstructive pulmonary disease, unspecified; R60.0 Localized edema | CPT/HCPCS: 99214 ==

== ENCOUNTER 2022-05-21 08:32 | Inpatient (IN) | payer MEDICARE, MEDICAID, SELFPAY ==
[2022-05-21] VITALS (35 sets, daily range): BP systolic 40–144; BP diastolic 26–90; PULSE 61–100; RESP 2–28; TEMP 36.8–38.3; O2SAT 84–100
--- NOTE | 2022-05-21 09:00 | RT.EKG_ITS ---
APPROVED REPORT Exam: Resting ECG Reason for Exam: shortness of breath Patient Location: E HR:69 bpm ECG Measurements Heart Rate 69 AXIS IA 155 P 28 QRSd 99 QRS 2 QT 403 T 33 QTc 432 Conclusion Sinus rhythm...normal P axis, V-rate 60- 99
[2022-05-21] MEDS: methylPREDNISolone SUCC 125 MG VIAL IVP (09:15)
--- NOTE | 2022-05-21 09:15 | DI.RAD_ITS ---
Exam(s) XR PORTABLE CHEST AP EXAM: XR PORTABLE CHEST AP CLINICAL HISTORY: cough, pui. TECHNIQUE: 2D digital imaging was performed. COMPARISON: CR,XR XR CHEST 2V PA LATERAL from 05/26/2021 FINDINGS: LUNGS: Clear. No pleural abnormality seen. HEART: Normal. MEDIASTINUM: Normal. OTHER FINDINGS: None. IMPRESSION: No acute pulmonary findings. DATA REPOSITORY: RADIATION DOSE DELIVERED: Total DLP
[2022-05-21] MEDS: Albuterol/Ipratropium 3 ML UPD VIAL UPD ×6 (09:23→23:15)
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
--- NOTE | 2022-05-21 10:01 | NUR.NOTE ---
Nursing Note: ATTEMPT X1 FOR IV START, PT STATED I AM NOT ALLOWING THIS, THIS IS NOT WHY I AM HERE, I DO NOT WANT IV'S AND BLOODWORK PROVIDER NOTIFIED.
[2022-05-21 10:25] LABS: COVID-19 PCR Negative (Negative); Influenza B PCR Negative (Negative); RSV PCR Negative (Negative)
[2022-05-21 10:28] LABS: Influenza A PCR Positive (Negative); Source Nasopharynx
[2022-05-21 10:58] LABS: Abs Immature Grans 0.03 10^3/uL (0.0-0.06); Absolute Basophil Count 0.02 10^3/uL (0.0-0.2); Absolute Lymphocyte Count 0.25 10^3/uL (1.2-3.4); Absolute Monocyte Count 0.44 10^3/uL (0.1-0.8); Absolute Neutrophil Count 2.49 10^3/uL (1.2-6.7); Basophils % 0.6; HCT 40.2 % (36.0-46.0); HGB 13.5 g/dL (11.2-15.7); Immature Grans % 0.9; Lymphocytes % 7.7; MCH 30.1 pg (27.0-33.0); MCHC 33.6 % (32.0-36.0); MCV 90 fL (80-95); MPV 9.1 fL (8.0-11.0); Monocytes % 13.6; Neutrophils % 77.2; Platelet Count 190 10^3/uL (130-400); RBC 4.48 10^6/uL (3.93-5.22); RDW 13.6 % (11.7-14.6); RDW-SD 45.2 fL; WBC 3.23 10^3/uL (4.4-10.8)
[2022-05-21 11:18] LABS: ALT 23 U/L (14-59); AST 38 U/L (15-37); Albumin 3.2 g/dL (3.4-5.0); Alkaline Phosphatase 88 U/L (46-116); Anion Gap 5.8 mmol/L (3-11); BUN 12 mg/dL (7-18); Bilirubin, Total 0.2 mg/dL (0.2-1.0); CO2 31.2 mmol/L (21.0-32.0); CREATININE 0.8 mg/dL (0.55-1.02); Calcium 8.7 mg/dL (8.5-10.1); Chloride 100 mmol/L (98-107); Glucose 95 mg/dL (74-106); NT-proBNP 635 pg/mL (<300); Potassium 3.6 mmol/L (3.5-5.1); Sodium 137 mmol/L (136-145); Total Protein 7.9 g/dL (6.4-8.2); Troponin I < 50 ng/L (<or=60)
[2022-05-21] MEDS: Acetaminophen 325 MG TAB PO ×2 (15:26→23:19)
[2022-05-21] MEDS: Benzonatate 100 MG CAP PO ×2 (15:26→21:17)
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
[2022-05-21] MEDS: oxyCODONE 10 MG TAB PO (16:18)
[2022-05-21 18:21] LABS: Troponin I < 50 ng/L (<or=60)
[2022-05-21 18:49] LABS: Bilirubin Small (Negative); Blood Small (Negative); Clarity Sl Cloudy (Clear); Glucose Negative (Negative); Ketones Negative (Negative); Leukocyte Esterase Negative (Negative); Nitrite Negative (Negative); Specific Gravity >= 1.030 (1.005-1.025)
[2022-05-21 18:58] LABS: Bacteria Moderate HPF (Negative); C & S Indicated? No/Sq. Contamination; Crystals Negative HPF (Negative); Epithelial Cells Many HPF (Negative); Mucus Negative (Negative); WBC 0-2 HPF (0-5)
[2022-05-21] MEDS: Pregabalin 100 MG CAP PO (20:17)
[2022-05-21] MEDS: Cyclobenzaprine 10 MG TAB PO (20:17)
[2022-05-21] MEDS: Metoprolol CR 100 MG TABCR PO (20:17)
[2022-05-21] MEDS: Melatonin 3 MG TAB 6 MG PO (21:17)
[2022-05-22] VITALS (14 sets, daily range): BP systolic 115–132; BP diastolic 68–81; PULSE 63–94; RESP 4–24; TEMP 36.9–37.8; O2SAT 90–100
[2022-05-22] MEDS: oxyCODONE 10 MG TAB PO ×4 (01:12→20:02)
[2022-05-22] MEDS: Albuterol/Ipratropium 3 ML UPD VIAL UPD ×6 (04:14→23:22)
[2022-05-22] MEDS: Acetaminophen 325 MG TAB PO ×3 (04:40→20:08)
[2022-05-22] MEDS: Levothyroxine 75 MCG TAB PO (06:06)
[2022-05-22 07:28] LABS: Absolute Basophil Count 0.01 10^3/uL (0.0-0.2); Absolute Lymphocyte Count 0.34 10^3/uL (1.2-3.4); Absolute Monocyte Count 0.35 10^3/uL (0.1-0.8); Absolute Neutrophil Count 2.47 10^3/uL (1.2-6.7); Basophils % 0.3; HCT 40.4 % (36.0-46.0); HGB 13.6 g/dL (11.2-15.7); Lymphocytes % 10.7; MCHC 33.7 % (32.0-36.0); MCV 89 fL (80-95); MPV 9.1 fL (8.0-11.0); Platelet Count 169 10^3/uL (130-400); RBC 4.54 10^6/uL (3.93-5.22); RDW 13.7 % (11.7-14.6); RDW-SD 45.1 fL; WBC 3.17 10^3/uL (4.4-10.8)
[2022-05-22] MEDS: Tiotropium/Olodaterol 10 PUFF INHALER 2 PUFF IH (07:32)
--- NOTE | 2022-05-22 07:37 | RESPIRATORY ---
Pt states that she has had COPD for 10+ years and does not use any O2 at home.
[2022-05-22 07:46] LABS: Anion Gap 7.1 mmol/L (3-11); BUN 12 mg/dL (7-18); CO2 29.9 mmol/L (21.0-32.0); CREATININE 0.6 mg/dL (0.55-1.02); Calcium 8.6 mg/dL (8.5-10.1); Chloride 100 mmol/L (98-107); Estimated GFR 102.69 (mL/min/1.73m2); Glucose 86 mg/dL (74-106); Magnesium 1.8 mg/dL (1.8-2.4); Potassium 3.4 mmol/L (3.5-5.1); Sodium 137 mmol/L (136-145)
[2022-05-22] MEDS: Metoprolol CR 100 MG TABCR PO ×2 (08:30→20:02)
[2022-05-22] MEDS: Cyclobenzaprine 10 MG TAB PO ×2 (08:35→20:02)
[2022-05-22] MEDS: Omeprazole 20 MG CAPCR PO (08:36)
[2022-05-22] MEDS: predniSONE 20 MG TAB 40 MG PO (08:36)
[2022-05-22] MEDS: Pregabalin 100 MG CAP PO ×3 (08:37→20:02)
[2022-05-22] MEDS: Sertraline 100 MG TAB PO (08:37)
[2022-05-22] MEDS: Torsemide 20 MG TAB PO (08:37)
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
[2022-05-22] MEDS: Benzonatate 100 MG CAP PO ×2 (10:40→14:52)
[2022-05-22] MEDS: Potassium Chloride 20 MEQ TABCR 40 MEQ PO (15:53)
[2022-05-22] MEDS: Rivaroxaban 10 MG TABLET PO (17:32)
--- NOTE | 2022-05-22 19:07 | W.PM.PROGNOT ---
Date of Service Date of service: 05/22/22 Time of Service: 12:00 Assessment and Plan Assessment and plan (1) Influenza A: Status: Acute Assessment and plan: Xofluza-XO given, one time dose (2) COPD (chronic obstructive pulmonary disease): Status: None Assessment and plan: No current exacerbation. She does have influenza and is coughing; angélica smith scheduled. Qualifiers: COPD type: unspecified COPD Qualified Code(s): J44.9 - Chronic obstructive pulmonary disease, unspecified (3) Sleep apnea: Status: Acute Assessment and plan: Untreated. Will have her f/u as outpt with pulmonary medicine. Qualifiers: Sleep apnea type: unspecified type Qualified Code(s): G47.30 - Sleep apnea, unspecified (4) Atrial flutter: Status: Chronic Assessment and plan: Telemetry Aflutter 80-110 On xarelto at home (5) Hypothyroidism: Status: None Assessment and plan: TSH 2.6 1 year ago - will recheck Cont current replacement tx of 75 mcg (6) Chronic pain: Status: None Assessment and plan: She takes oxycodone onrberto 4 times per day at home and requests the same here. - Ordered Qualifiers: Chronic pain type: other chronic pain Qualified Code(s): G89.29 - Other chronic pain (7) Obesity: Status: Chronic Assessment and plan: Nutrition consult (8) Ventricular hypertrophy determined by echocardiography: Status: Chronic Assessment and plan: Stable (9) Open wound of both lower extremities: Status: Acute Assessment and plan: She has bilateral lower extremity wounds that are covered - she will not let us take the dsg off - req records from [facility] and ordered wound consult. (10) Cough: Status: Acute Assessment and plan: Sydneesion tricia for cough; nebulizers (11) DVT prophylaxis: Status: Acute Assessment and plan: Conitnue Xarelto (12) Discharge planning issues: Status: Acute Assessment and plan: Home when stable Discussed with Dr Abraham Subjective Subjective Patient reports: no new complaints, feels better, tolerating a regular diet, bowel movement and afebrile; denies flatus, diarrhea, nausea, vomiting or shortness of breath Interval history since last seen: Improving; states she is feeling better. Declines to let us look at her legs. Exam Const General: cooperative HENMT Mouth: moist mucous membranes Eyes Conjunctivae: normal conjunctivae Sclera: normal sclerae Neck Neck: trachea midline and supple Resp Auscultation: rales bilaterally, no rhonchi and wheezes expiratory wheezes Cardio Rate: regular rate and not tachycardic Rhythm: regular rhythm Heart Sounds: no murmurs GI Palpation: soft, not firm, no guarding, no masses, not rigid and nontender Skin General skin exam: no rashes or lesions noted Neuro General: patient alert, patient awake and tone normal Extrem General: no calf tenderness and edema Psych Appearance: grossly normal Mental Status: mental status grossly normal Objective Last Vital Signs Temp 37.8 C H 05/22/22 15:37 Pulse 66 05/22/22 15:37 Resp 18 05/22/22 15:37 BP 124/68 05/22/22 15:37 Pulse Ox 91 L 05/22/22 15:37 Laboratory Results - last 24 hr 05/22/22 05/22/22 07:20 07:20 WBC 3.17 L RBC 4.54 Hgb 13.6 Hct 40.4 MCV 89 MCH 30.0 MCHC 33.7 RDW 13.7 Plt Count 169 MPV 9.1 Immature Gran % 0.0 Neutrophils % 78.0 Lymphocytes % 10.7 Monocytes % 11.0 Eosinophils % 0.0 Basophils % 0.3 Nucleated RBC % 0.0 Absolute Neutrophils 2.47 Absolute Lymphocytes 0.34 L Absolute Monocytes 0.35 Absolute Eosinophils 0.00 Absolute Basophils 0.01 Sodium 137 Potassium 3.4 L Chloride 100 Carbon Dioxide 29.9 Anion Gap 7.1 BUN 12 Creatinine 0.6 Est GFR (CKD-EPI 2020) 102.69 Glucose 86 Calcium 8.6 Magnesium 1.8
[2022-05-22] MEDS: Melatonin 3 MG TAB 6 MG PO (20:03)
[2022-05-23] VITALS (16 sets, daily range): BP systolic 116–131; BP diastolic 72–85; PULSE 69–95; RESP 4–24; TEMP 37.1–37.9; O2SAT 83–920
[2022-05-23] MEDS: Levothyroxine 75 MCG TAB PO (05:59)
[2022-05-23] MEDS: Acetaminophen 325 MG TAB PO ×2 (05:59→21:17)
[2022-05-23] MEDS: Benzonatate 100 MG CAP PO ×2 (06:12→17:46)
[2022-05-23] MEDS: Omeprazole 20 MG CAPCR PO (06:13)
[2022-05-23] MEDS: Albuterol/Ipratropium 3 ML UPD VIAL UPD ×5 (06:17→20:05)
[2022-05-23 06:23] LABS: Absolute Basophil Count 0.01 10^3/uL (0.0-0.2); Absolute Lymphocyte Count 0.63 10^3/uL (1.2-3.4); Absolute Monocyte Count 0.32 10^3/uL (0.1-0.8); Absolute Neutrophil Count 2.16 10^3/uL (1.2-6.7); Basophils % 0.3; HCT 41.6 % (36.0-46.0); HGB 13.7 g/dL (11.2-15.7); Lymphocytes % 20.2; MCH 29.5 pg (27.0-33.0); MCHC 32.9 % (32.0-36.0); MCV 90 fL (80-95); MPV 9.2 fL (8.0-11.0); Monocytes % 10.3; Neutrophils % 69.2; Platelet Count 176 10^3/uL (130-400); RBC 4.64 10^6/uL (3.93-5.22); RDW 13.5 % (11.7-14.6); RDW-SD 44.9 fL; WBC 3.12 10^3/uL (4.4-10.8)
[2022-05-23 06:44] LABS: Anion Gap 6.8 mmol/L (3-11); BUN 18 mg/dL (7-18); CO2 30.2 mmol/L (21.0-32.0); CREATININE 0.8 mg/dL (0.55-1.02); Calcium 8.7 mg/dL (8.5-10.1); Chloride 101 mmol/L (98-107); Glucose 82 mg/dL (74-106); Magnesium 1.9 mg/dL (1.8-2.4); Potassium 3.6 mmol/L (3.5-5.1); Sodium 138 mmol/L (136-145)
[2022-05-23] MEDS: Tiotropium/Olodaterol 10 PUFF INHALER 2 PUFF IH (07:48)
[2022-05-23] MEDS: predniSONE 20 MG TAB 40 MG PO (08:12)
[2022-05-23] MEDS: Cyclobenzaprine 10 MG TAB PO ×2 (08:12→21:16)
[2022-05-23] MEDS: oxyCODONE 10 MG TAB PO ×4 (08:13→21:16)
[2022-05-23] MEDS: Metoprolol CR 100 MG TABCR PO ×2 (08:13→21:16)
[2022-05-23] MEDS: Torsemide 20 MG TAB PO (08:13)
[2022-05-23] MEDS: buPROPion-XL 150 MG TABCR PO (08:13)
[2022-05-23] MEDS: Pregabalin 100 MG CAP PO ×3 (08:13→21:17)
[2022-05-23] MEDS: Sertraline 100 MG TAB PO (08:13)
--- NOTE | 2022-05-23 12:46 | CMPROGNOTE_ITS ---
- If Service Date Differs Date of service: 05/23/22 Time of Service: 12:46 Care Management Progress Note S/O: Aparna is sitting up in her chair when CM met with her. She is awake, alert and able to engage in conversation. She appears to be in better spirits today. Aparna had a consult with PT today, progress note to follow. Wound consult is ordered. Discharge planning is reviewed with Aparna. Per pt, she refuses to discharge to a SNF for STR. She would be agreeable to discharge home with New [facility] RN/PT and [facility] O2, if needed. Aparna is not medically ready for discharge at this time, CM will continue to follow. A: 61 year old female admitted to [facility] on 05/21/22 Influenza A P: Anticipate, Aparna will discharge home with New [facility] RN/PT/OT and [place] O2 (if indicated). She refuses SNF for STR at this time. Aparna will likely transport via private vehicle with family. Aparna plans to resume wound care with her specialist at [facility].
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
--- NOTE | 2022-05-23 16:13 | W.PM.PROGNOT ---
Date of Service Date of service: 05/23/22 Time of Service: 16:13 Assessment and Plan Assessment and plan (1) Respiratory failure with hypoxia: Status: Acute (2) Influenza A: Status: Acute Assessment and plan: Xofluza-XO given, one time dose (3) Sleep apnea: Status: Acute Assessment and plan: Untreated. Will have her f/u as outpt with pulmonary medicine. Qualifiers: Sleep apnea type: unspecified type Qualified Code(s): G47.30 - Sleep apnea, unspecified (4) Atrial flutter: Status: Chronic Assessment and plan: Telemetry Aflutter 80-110 On xarelto at home (5) Hypothyroidism: Status: None Assessment and plan: TSH 2.6 1 year ago - will recheck Cont current replacement tx of 75 mcg (6) Chronic pain: Status: None Assessment and plan: She takes oxycodone norberto 4 times per day at home and requests the same here. - Ordered Qualifiers: Chronic pain type: other chronic pain Qualified Code(s): G89.29 - Other chronic pain (7) Obesity: Status: Chronic Assessment and plan: Nutrition consult (8) Ventricular hypertrophy determined by echocardiography: Status: Chronic Assessment and plan: Stable (9) Open wound of both lower extremities: Status: Acute Assessment and plan: She has bilateral lower extremity wounds that are covered - she will not let us take the dsg off - req records from [facility] and ordered wound consult. (10) Cough: Status: Acute Assessment and plan: Tession pearls for cough; nebulizers (11) DVT prophylaxis: Status: Acute Assessment and plan: Conitnue Xarelto (12) Discharge planning issues: Status: Acute Assessment and plan: Home when stable Discussed with Dr Abraham Subjective Subjective Patient reports: tolerating liquids well, tolerating a regular diet, shortness of breath and afebrile Exam Const General: cooperative, no acute distress, frail appearing and ill appearing chronically Nutritional Appearance: obese morbidly obese Orientation: alert, awake and oriented x3 HENMT Head: normal to inspection Mouth: oral mucosae normal Chest Chest: normal inspection of the chest Resp Effort & Inspection: normal respiratory effort Auscultation: diminished lung sounds and no wheezes Cardio Rate: regular rate Rhythm: regular rhythm GI Inspection: normal to inspection and obesity Palpation: soft Neuro General: patient alert, patient awake and patient oriented x3 Extrem General: normal to inspection and full ROM Objective Last Vital Signs Temp 37.6 C H 05/23/22 14:50 Pulse 73 05/23/22 15:14 Resp 18 05/23/22 15:14 BP 116/72 05/23/22 14:50 Pulse Ox 94 05/23/22 15:14 Laboratory Results - last 24 hr 05/23/22 05/23/22 05:46 05:46 WBC 3.12 L RBC 4.64 Hgb 13.7 Hct 41.6 MCV 90 MCH 29.5 MCHC 32.9 RDW 13.5 Plt Count 176 MPV 9.2 Immature Gran % 0.0 Neutrophils % 69.2 Lymphocytes % 20.2 Monocytes % 10.3 Eosinophils % 0.0 Basophils % 0.3 Nucleated RBC % 0.0 Absolute Neutrophils 2.16 Absolute Lymphocytes 0.63 L Absolute Monocytes 0.32 Absolute Eosinophils 0.00 Absolute Basophils 0.01 Sodium 138 Potassium 3.6 Chloride 101 Carbon Dioxide 30.2 Anion Gap 6.8 BUN 18 Creatinine 0.8 Est GFR (CKD-EPI 2020) 84.30 Glucose 82 Calcium 8.7 Magnesium 1.9
[2022-05-23] MEDS: Rivaroxaban 10 MG TABLET PO (16:27)
[2022-05-23] MEDS: Melatonin 3 MG TAB 6 MG PO (21:17)
[2022-05-24] VITALS (11 sets, daily range): BP systolic 108–125; BP diastolic 61–77; PULSE 14–76; RESP 1–20; TEMP 36.3–37.6; O2SAT 88–96
[2022-05-24] MEDS: Albuterol/Ipratropium 3 ML UPD VIAL UPD ×5 (00:09→20:02)
[2022-05-24] MEDS: Levothyroxine 75 MCG TAB PO (06:14)
[2022-05-24 07:12] LABS: Abs Immature Grans 0.01 10^3/uL (0.0-0.06); Absolute Lymphocyte Count 1.02 10^3/uL (1.2-3.4); Absolute Monocyte Count 0.38 10^3/uL (0.1-0.8); Absolute Neutrophil Count 1.87 10^3/uL (1.2-6.7); HCT 43.3 % (36.0-46.0); HGB 14.1 g/dL (11.2-15.7); Immature Grans % 0.3; Lymphocytes % 31.1; MCH 29.3 pg (27.0-33.0); MCHC 32.6 % (32.0-36.0); MCV 90 fL (80-95); MPV 9.2 fL (8.0-11.0); Monocytes % 11.6; Platelet Count 177 10^3/uL (130-400); RBC 4.81 10^6/uL (3.93-5.22); RDW 13.6 % (11.7-14.6); RDW-SD 45.1 fL; WBC 3.28 10^3/uL (4.4-10.8)
[2022-05-24 07:49] LABS: Anion Gap 9.2 mmol/L (3-11); BUN 20 mg/dL (7-18); CO2 29.8 mmol/L (21.0-32.0); CREATININE 0.8 mg/dL (0.55-1.02); Calcium 9.2 mg/dL (8.5-10.1); Chloride 99 mmol/L (98-107); Glucose 80 mg/dL (74-106); Magnesium 1.9 mg/dL (1.8-2.4); Potassium 3.4 mmol/L (3.5-5.1); Sodium 138 mmol/L (136-145)
[2022-05-24] MEDS: Pregabalin 100 MG CAP PO ×3 (09:44→20:27)
[2022-05-24] MEDS: predniSONE 20 MG TAB 40 MG PO (09:45)
[2022-05-24] MEDS: Omeprazole 20 MG CAPCR PO (09:45)
[2022-05-24] MEDS: Metoprolol CR 100 MG TABCR PO ×2 (09:45→20:26)
[2022-05-24] MEDS: oxyCODONE 10 MG TAB PO ×4 (09:45→20:27)
[2022-05-24] MEDS: Sertraline 100 MG TAB PO (09:46)
[2022-05-24] MEDS: Cyclobenzaprine 10 MG TAB PO ×2 (09:46→20:27)
[2022-05-24] MEDS: Torsemide 20 MG TAB PO (09:47)
[2022-05-24] MEDS: Tiotropium/Olodaterol 10 PUFF INHALER 2 PUFF IH (09:49)
[2022-05-24] MEDS: Rivaroxaban 10 MG TABLET PO (16:24)
[2022-05-24] MEDS: Acetaminophen 325 MG TAB PO (20:26)
[2022-05-24] MEDS: Potassium Chloride 20 MEQ TABCR PO (20:27)
[2022-05-25] VITALS (9 sets, daily range): BP systolic 111–132; BP diastolic 70–87; PULSE 55–90; RESP 5–24; TEMP 35.7–37.1; O2SAT 89–99
[2022-05-25] MEDS: Levothyroxine 75 MCG TAB PO (05:26)
[2022-05-25] MEDS: Albuterol/Ipratropium 3 ML UPD VIAL UPD ×4 (08:45→19:33)
[2022-05-25] MEDS: Tiotropium/Olodaterol 10 PUFF INHALER 2 PUFF IH (08:47)
[2022-05-25] MEDS: oxyCODONE 10 MG TAB PO ×4 (09:01→19:35)
[2022-05-25] MEDS: predniSONE 20 MG TAB 40 MG PO (09:01)
[2022-05-25] MEDS: Pregabalin 100 MG CAP PO ×3 (09:01→19:34)
[2022-05-25] MEDS: Cyclobenzaprine 10 MG TAB PO ×2 (09:02→19:34)
[2022-05-25] MEDS: Metoprolol CR 100 MG TABCR PO ×2 (09:02→19:35)
[2022-05-25] MEDS: Sertraline 100 MG TAB PO (09:02)
[2022-05-25] MEDS: Omeprazole 20 MG CAPCR PO (09:02)
[2022-05-25] MEDS: Potassium Chloride 20 MEQ TABCR PO ×2 (09:02→14:08)
[2022-05-25] MEDS: Torsemide 20 MG TAB PO (09:03)
--- NOTE | 2022-05-25 09:40 | W.PM.PROGNOT ---
Date of Service Date of service: 05/24/22 Time of Service: 10:00 Assessment and Plan Assessment and plan (1) Respiratory failure with hypoxia: Status: Acute Assessment and plan: continue to try to wean oxygen. still having high requirements with activity (4 l nc), will need to admit to inpatient until this has improved. (2) Influenza A: Status: Acute Assessment and plan: Xofluza-XO given, one time dose (3) Sleep apnea: Status: Acute Assessment and plan: Untreated. Will have her f/u as outpt with pulmonary medicine. Qualifiers: Sleep apnea type: unspecified type Qualified Code(s): G47.30 - Sleep apnea, unspecified (4) Atrial flutter: Status: Chronic Assessment and plan: Telemetry Aflutter 80-110 On xarelto at home (5) Hypothyroidism: Status: None Assessment and plan: TSH 0.5 Cont current replacement tx of 75 mcg (6) Chronic pain: Status: None Assessment and plan: She takes oxycodone norberto 4 times per day at home and requests the same here. - Ordered Qualifiers: Chronic pain type: other chronic pain Qualified Code(s): G89.29 - Other chronic pain (7) Obesity: Status: Chronic Assessment and plan: Nutrition consult (8) Ventricular hypertrophy determined by echocardiography: Status: Chronic Assessment and plan: Stable (9) Open wound of both lower extremities: Status: Acute Assessment and plan: She has bilateral lower extremity wounds that are covered - wound consult placed. (10) Cough: Status: Acute Assessment and plan: Tession pearls for cough; nebulizers (11) DVT prophylaxis: Status: Acute Assessment and plan: Conitnue Xarelto (12) Discharge planning issues: Status: Acute Assessment and plan: Home when stable Discussed with Dr Abraham Subjective Subjective Patient reports: no new complaints, feels better, tolerating liquids well, tolerating a regular diet, shortness of breath (with activity but improving, cough non prod) and afebrile; denies nausea Exam Const General: cooperative, no acute distress, frail appearing and ill appearing chronically Nutritional Appearance: obese morbidly obese Orientation: alert, awake and oriented x3 HENMT Head: normal to inspection Mouth: oral mucosae normal Chest Chest: normal inspection of the chest Resp Effort & Inspection: normal respiratory effort Auscultation: diminished lung sounds and no wheezes Cardio Rate: regular rate Rhythm: regular rhythm GI Inspection: normal to inspection and obesity Palpation: soft Neuro General: patient alert, patient awake and patient oriented x3 Extrem General: normal to inspection and full ROM Objective Last Vital Signs Temp 36.8 C 05/25/22 08:16 Pulse 64 05/25/22 08:45 Resp 18 05/25/22 08:45 BP 132/75 05/25/22 08:16 Pulse Ox 99 05/25/22 08:45
--- NOTE | 2022-05-25 09:43 | W.PM.PROGNOT ---
Date of Service Date of service: 05/25/22 Time of Service: 09:43 Assessment and Plan Assessment and plan (1) Respiratory failure with hypoxia: Status: Acute Assessment and plan: continue to try to wean oxygen. still having high requirements with activity (4 l nc) (2) Influenza A: Status: Acute Assessment and plan: Xofluza-XO given, one time dose continue oxygen, pulmonary toileting, increasing activity (3) Sleep apnea: Status: Acute Assessment and plan: Untreated. Will have her f/u as outpt with pulmonary medicine. Qualifiers: Sleep apnea type: unspecified type Qualified Code(s): G47.30 - Sleep apnea, unspecified (4) Atrial flutter: Status: Chronic Assessment and plan: Telemetry Aflutter 80-110 On xarelto at home (5) Hypothyroidism: Status: None Assessment and plan: TSH 0.5 Cont current replacement tx of 75 mcg (6) Chronic pain: Status: None Assessment and plan: She takes oxycodone norberto 4 times per day at home and requests the same here. - Ordered Qualifiers: Chronic pain type: other chronic pain Qualified Code(s): G89.29 - Other chronic pain (7) Obesity: Status: Chronic Assessment and plan: Nutrition consult (8) Ventricular hypertrophy determined by echocardiography: Status: Chronic Assessment and plan: Stable (9) Open wound of both lower extremities: Status: Acute Assessment and plan: She has bilateral lower extremity wounds that are covered - wound consult placed. (10) Cough: Status: Acute Assessment and plan: Tession pearls for cough; nebulizers (11) DVT prophylaxis: Status: Acute Assessment and plan: Conitnue Xarelto (12) Discharge planning issues: Status: Acute Assessment and plan: Home when stable Discussed with Dr Abraham Subjective Subjective Patient reports: no new complaints, tolerating liquids well, tolerating a regular diet and afebrile Exam Const General: cooperative, no acute distress, frail appearing and ill appearing chronically Nutritional Appearance: obese morbidly obese Orientation: alert, awake and oriented x3 HENMT Head: normal to inspection Mouth: oral mucosae normal Chest Chest: normal inspection of the chest Resp Effort & Inspection: normal respiratory effort Auscultation: diminished lung sounds and no wheezes Cardio Rate: regular rate Rhythm: regular rhythm GI Inspection: normal to inspection and obesity Palpation: soft Neuro General: patient alert, patient awake and patient oriented x3 Extrem General: normal to inspection and full ROM Objective Last Vital Signs Temp 36.8 C 05/25/22 08:16 Pulse 64 05/25/22 08:45 Resp 18 05/25/22 08:45 BP 132/75 05/25/22 08:16 Pulse Ox 99 05/25/22 08:45
[2022-05-25] MEDS: guaiFENesin 600 MG TABCR PO ×2 (14:08→19:34)
[2022-05-25] MEDS: Rivaroxaban 10 MG TABLET PO (16:33)
[2022-05-25] MEDS: Melatonin 3 MG TAB 6 MG PO (19:34)
[2022-05-26] VITALS (16 sets, daily range): BP systolic 119–142; BP diastolic 70–82; PULSE 55–78; RESP 2–24; TEMP 36.4–37.2; O2SAT 83–98
[2022-05-26] MEDS: Levothyroxine 75 MCG TAB PO (05:22)
[2022-05-26] MEDS: Acetaminophen 325 MG TAB PO (05:25)
[2022-05-26] MEDS: oxyCODONE 10 MG TAB PO ×4 (08:02→20:34)
[2022-05-26] MEDS: guaiFENesin 600 MG TABCR PO ×2 (08:03→20:34)
[2022-05-26] MEDS: predniSONE 20 MG TAB 40 MG PO (08:03)
[2022-05-26] MEDS: Omeprazole 20 MG CAPCR PO (08:03)
[2022-05-26] MEDS: Cyclobenzaprine 10 MG TAB PO ×2 (08:03→20:34)
[2022-05-26] MEDS: Pregabalin 100 MG CAP PO ×3 (08:03→20:34)
[2022-05-26] MEDS: Torsemide 20 MG TAB PO (08:03)
[2022-05-26] MEDS: Sertraline 100 MG TAB PO (08:03)
[2022-05-26] MEDS: Metoprolol CR 100 MG TABCR PO ×2 (08:03→20:34)
[2022-05-26] MEDS: Albuterol/Ipratropium 3 ML UPD VIAL UPD ×4 (08:04→20:04)
[2022-05-26] MEDS: Tiotropium/Olodaterol 10 PUFF INHALER 2 PUFF IH (08:52)
--- NOTE | 2022-05-26 09:09 | W.PM.PROGNOT ---
Date of Service Date of service: 05/26/22 Time of Service: 09:09 Assessment and Plan Assessment and plan (1) Respiratory failure with hypoxia: Status: Acute Assessment and plan: continue to try to wean oxygen. still having high requirements with activity (4 l nc) Unable to wean - she declined Ex oximetry. She declined home oxygen. (2) Influenza A: Status: Acute Assessment and plan: Xofluza-XO given, one time dose continue oxygen, pulmonary toileting, increasing activity (3) Sleep apnea: Status: Acute Assessment and plan: Untreated. Will have her f/u as outpt with pulmonary medicine. Qualifiers: Sleep apnea type: unspecified type Qualified Code(s): G47.30 - Sleep apnea, unspecified (4) Atrial flutter: Status: Chronic Assessment and plan: Telemetry Aflutter 80-110 On xarelto at home (5) Hypothyroidism: Status: None Assessment and plan: TSH 0.5 Cont current replacement tx of 75 mcg (6) Chronic pain: Status: None Assessment and plan: She takes oxycodone norberto 4 times per day at home and requests the same here. - Ordered Qualifiers: Chronic pain type: other chronic pain Qualified Code(s): G89.29 - Other chronic pain (7) Obesity: Status: Chronic Assessment and plan: Nutrition consult (8) Ventricular hypertrophy determined by echocardiography: Status: Chronic Assessment and plan: Stable (9) Open wound of both lower extremities: Status: Acute Assessment and plan: She has bilateral lower extremity wounds that are covered - wound consult placed. Received wound care orders that [facility] wound clinic has been using; adapted them to the best of our ability with the supplies that we have - in conversation with [facility] they were ok with us using Mepilex Ag in lieu of hydrofera blue that we do not have. Aparna was against this and refused to let anyone take the current dressings of her legs, however after much conversation and for reasons of it being potentially another week before she is seen at the wound clinic, she gave us permission to change the dsg. Wound care orders were updated on the chart. (10) Cough: Status: Acute Assessment and plan: Tession pearls for cough; nebulizers (11) DVT prophylaxis: Status: Acute Assessment and plan: Conitnue Xarelto (12) Discharge planning issues: Status: Acute Assessment and plan: Home when stable - if she is not willing to let us draw labs and is otherwise stable, she can be discharged tomorrow 05/27 She will need oxygen at home, she not able to wean and should not go home without oxygen. After great discussion she changed her mind and agreed to go home on oxygen - RT and supervisor maintenance and custodians aware She refused the ex oximetry today, as well as refusing a blood draw for morning labs Discussed with Dr Abraham Subjective Subjective Patient reports: no new complaints, tolerating a regular diet, bowel movement, shortness of breath and afebrile; denies flatus, diarrhea, nausea or vomiting Exam Narrative Exam Narrative: Sitting in the chair in the room, up right speaking in full sentences Const General: cooperative, no acute distress, frail appearing and ill appearing chronically Nutritional Appearance: obese morbidly obese Orientation: alert, awake and oriented x3 HENMT Head: normal to inspection Mouth: oral mucosae normal Chest Chest: normal inspection of the chest Resp Effort & Inspection: normal respiratory effort Auscultation: diminished lung sounds and no wheezes Cardio Rate: regular rate Rhythm: regular rhythm GI Inspection: normal to inspection and obesity Palpation: soft Neuro General: patient alert, patient awake and patient oriented x3 Extrem General: normal to inspection and full ROM Objective Last Vital Signs Temp 36.7 C 05/26/22 08:00 Pulse 58 L 05/26/22 08:00 Resp 18 05/26/22 08:00 BP 142/81 H 05/26/22 08:00 Pulse Ox 91 L 05/26/22 08:52
--- NOTE | 2022-05-26 09:51 | PDOC.CMPRO ---
- If Service Date Differs Date of service: 05/26/22 Time of Service: 09:51 Care Management Progress Note S/O: Aparna is sitting in her chair when CM met with her, she is wearing supplemental 02. She is awake, alert and able to engage in conversation. She expresses that she is frustrated, because she is not feeling better and nothing seems to be working. Per RT she is 83% RA and 90% on 3L NC, and is asking to be discharged without home O2 with a plan to follow up with her PCP Dr. Valencia on Thursday. Per RT, from a respiratory standpoint this plan will be AMA. CM reviewed the risks of discharging home without home O2 and Aparna is now agreeable to home O2. CM notified RT. CM will continue to follow. Aparna is planning to have a wound consult, today. Aparna shares that the molder labels's have to fish to find her veins, and because of this she is refusing lab draws, unless there is a critical need to have them. A: 61 year old female admitted to [facility] on 05/21/22 Influenza A P: Anticipate, Aparna will discharge home with New [facility] RN/PT/OT and [place] O2 (if indicated). Patient has a nebulizer at home. She refuses SNF for STR at this time. Aparna will likely transport via private vehicle with family. Aparna plans to resume wound care with her specialist at [facility].
[2022-05-26] MEDS: Rivaroxaban 10 MG TABLET PO (16:30)
[2022-05-26 19:55] LABS: Abs Immature Grans 0.02 10^3/uL (0.0-0.06); HCT 43.1 % (36.0-46.0); HGB 14.2 g/dL (11.2-15.7); MCH 29.6 pg (27.0-33.0); MCHC 32.9 % (32.0-36.0); MCV 90 fL (80-95); MPV 9.4 fL (8.0-11.0); Platelet Count 178 10^3/uL (130-400); RDW 13.2 % (11.7-14.6); RDW-SD 43.8 fL; WBC 3.32 10^3/uL (4.4-10.8)
[2022-05-26 20:02] LABS: Anion Gap 5.5 mmol/L (3-11); BUN 20 mg/dL (7-18); CO2 34.5 mmol/L (21.0-32.0); CREATININE 0.8 mg/dL (0.55-1.02); Calcium 8.8 mg/dL (8.5-10.1); Chloride 98 mmol/L (98-107); Glucose 170 mg/dL (74-106); Potassium 3.4 mmol/L (3.5-5.1); Sodium 138 mmol/L (136-145)
[2022-05-26 20:17] LABS: Absolute Lymphocyte Count 1.29 10^3/uL (1.2-3.4); Absolute Monocyte Count 0.17 10^3/uL (0.1-0.8); Absolute Neutrophil Count 1.86 10^3/uL (1.2-6.7); Atypical Lymphocytes % 3
[2022-05-26 20:18] LABS: Diff Comment Manual Differential; RBC Morphology Normal
[2022-05-26] MEDS: Melatonin 3 MG TAB 6 MG PO (20:34)
[2022-05-26] MEDS: Benzonatate 100 MG CAP PO (20:36)
[2022-05-27] VITALS (11 sets, daily range): BP systolic 120–137; BP diastolic 74–85; PULSE 57–63; RESP 2–20; TEMP 36.5–37.2; O2SAT 90–96
[2022-05-27] MEDS: Acetaminophen 325 MG TAB PO (02:38)
[2022-05-27] MEDS: Levothyroxine 75 MCG TAB PO (05:46)
[2022-05-27 06:35] LABS: Magnesium 1.7 mg/dL (1.8-2.4)
[2022-05-27] MEDS: Albuterol/Ipratropium 3 ML UPD VIAL UPD ×3 (07:31→15:57)
[2022-05-27] MEDS: Tiotropium/Olodaterol 10 PUFF INHALER 2 PUFF IH (07:36)
[2022-05-27] MEDS: Cyclobenzaprine 10 MG TAB PO (08:51)
[2022-05-27] MEDS: guaiFENesin 600 MG TABCR PO (08:51)
[2022-05-27] MEDS: Metoprolol CR 100 MG TABCR PO (08:53)
[2022-05-27] MEDS: oxyCODONE 10 MG TAB PO ×3 (08:54→16:03)
[2022-05-27] MEDS: Omeprazole 20 MG CAPCR PO (08:54)
[2022-05-27] MEDS: Potassium Chloride 20 MEQ TABCR 40 MEQ PO (08:55)
[2022-05-27] MEDS: predniSONE 20 MG TAB 40 MG PO (08:55)
[2022-05-27] MEDS: Torsemide 20 MG TAB PO (08:56)
[2022-05-27] MEDS: Sertraline 100 MG TAB PO (08:56)
[2022-05-27] MEDS: Pregabalin 100 MG CAP PO ×2 (08:56→13:57)
[2022-05-27] MEDS: Magnesium Chloride 64 MG TABCR PO (12:18)
--- NOTE | 2022-05-27 13:14 | PDOC.CMPRO ---
- If Service Date Differs Date of service: 05/27/22 Time of Service: 13:14 Care Management Progress Note S/O: Aparna is awake, alert, sitting in her chair and easily engages in conversation. She is feeling better today and is looking forward to discharging home, once her supplemental O2 is approved through [facility]. She is planning on seeing her PCP Dr. Valencia on Thursday. She is also agreeable to [facility] RN/[employer]. She will follow up with [facility] for wound care. A: 61 year old female admitted to [facility] on 05/21/22 Influenza A P: Anticipate, Aparna will discharge home with [facility] and [place] O2 , through [facility]. Patient has a nebulizer at home. She refuses SNF for STR at this time. Aparna will likely transport via private vehicle with family. Aparna plans to resume wound care with her specialist at [facility].
--- NOTE | 2022-05-27 16:02 | PDOC.HHF2F_ITS ---
Home Health Referral Home Health Orders Clinical synopsis of why skilled professionals are needed: This is a 61-year-old female patient with past medical history of COPD, pulmonary hypertension, pulmonary embolism, now anticoagulated on Xarelto, atrial flutter, obesity, here with chief complaint of shortness of breath.? Patient noted persistent and progressive shortness of breath over the past 3 days.? She complained of associated cough and fever over the same period of time.? Patient had been using her albuterol inhalers and nebulizer without resolution of symptoms.? Patient was concerned because her grandson had influenza and she was exposed to him. Patient did note some associated chest discomfort with cough only.? She denied any worsening leg swelling or calf pain.? Patient was covid negative.? She tested positive for Influenza A.? Her oxygen saturation was low, 92% on 2 LPM; she had poor air movement at that time. She has bilateral lower leg wounds that are chronic and treated at [facility].? She was admitted to the medical floor for IV fluids and to monitor for exacerbation of chronic conditions with positive Influenza. She was given Xofluza-XO.? She improved and stated she felt better, eating full meals and had no fever.? She had no diarrhea, no vomiting.? She does have a new oxygen requirement.? She has past medical history of COPD and with this hospitalization was found to need oxygen with exertion.? She is being sent home with oxygen to use as needed.? She was evaluated by PT and they did not feel that she needed any home services. They recommend she walk from chair to door at least once every hour at her own pace.? Do deep breathing exercises x 5 with chest expansion exercises at least one set every hour. She has her chronic wound care done at the [facility].? Recommend she continue that and any orders related to her wounds should come from them. She is stable and only requires oxygen with moderate activity.? Respiratory therapy and care managers have arranged for her to have oxygen at home. She is being discharged to home with Home Health Nursing. Medical diagnosis necessitation home health referral: COPD with new oxygen requirement Registered Nurse: Check all that apply Instruct on new or changed medication(s)/assess compliance: Ordered Assess for exacerbation of medical condition, instruct patient/caregivers on signs and symptoms to report for early detection: Ordered Sales Operations Lead: Assist with community resources: Ordered Assist with long term care pharmacist care planning: Ordered Home Bound Status Assistance of another person (Describe assistance and medical necessity): one other person to assist her and a device to ambulate safely outdoors Describe why leaving home would require a considerable and taxing effort: Safety Concerns: describe (new oxygen requirement) Encounter Date and Reason: I certify that a FTF encounter for this patient was performed on May 27, 2022 and that such encounter was related to the primary reason the patient requires home health services. The encounter was conducted in the following manner: * By me as the certifying physician, INSTRUMENTATION SUPERVISOR, PA or * By an inpatient physician, INSTRUMENTATION SUPERVISOR or PA during an inpatient stay who communicated findings to me, Certification And Authentication I certify that I composed the above information based on my clinical judgment relating to this patient's medical condition and, if applicable, clinical findings communicated to me by the NPP or inpatient physician who performed the FTF encounter. Name of Provider that will be monitoring home health services: Storm Valencia
--- NOTE | 2022-05-27 16:06 | W.PM.DS.N ---
Date of service: 05/27/22 Time of Service: 16:07 DS: Diagnosis Discharge Diagnosis (1) Respiratory failure with hypoxia: Status: Acute Asessment and Plan: Improved; new oxygen requirement with activity - will have home oxygen on discharge (2) Influenza A: Status: Acute Asessment and Plan: Resolved - treated with XoFluza (3) Sleep apnea: Status: Acute Asessment and Plan: Continue current therapy (4) Atrial flutter: Status: Chronic Asessment and Plan: Stable; on Xarelto (5) Hypothyroidism: Status: None Asessment and Plan: Continue current therapy (6) Chronic pain: Status: None Asessment and Plan: Continue current therapy (7) Obesity: Status: Chronic Asessment and Plan: Nutrition was consulted; she has received education (8) Ventricular hypertrophy determined by echocardiography: Status: Chronic Asessment and Plan: Stable (9) Open wound of both lower extremities: Status: Acute Asessment and Plan: Followed by [facility] (10) Cough: Status: Acute Asessment and Plan: Resolving (11) DVT prophylaxis: Status: Acute (12) Discharge planning issues: Status: Acute Discharge Plan Disposition Patient Disposition: Home W/Home Health Services Condition: Improving Discharge Details Reason For Visit: Influenza A Admit Date/Time: 05/23/22 12:50 Admit Provider: Preston Simmons Attending Provider: Preston Simmons Primary Care Provider: Storm Valencia Hospital Course Hospital Course: This is a 61-year-old female patient with past medical history of COPD, pulmonary hypertension, pulmonary embolism, now anticoagulated on Xarelto, atrial flutter, obesity, here with chief complaint of shortness of breath.? Patient noted persistent and progressive shortness of breath over the past 3 days.? She complained of associated cough and fever over the same period of time.? Patient had been using her albuterol inhalers and nebulizer without resolution of symptoms.? Patient was concerned because her grandson had influenza and she was exposed to him. Patient did note some associated chest discomfort with cough only.? She denied any worsening leg swelling or calf pain.? Patient was covid negative.? She tested positive for Influenza A.? Her oxygen saturation was low, 92% on 2 LPM; she had poor air movement at that time. She has bilateral lower leg wounds that are chronic and treated at [facility].? She was admitted to the medical floor for IV fluids and to monitor for exacerbation of chronic conditions with positive Influenza. She was given Xofluza-XO.? She improved and stated she felt better, eating full meals and had no fever.? She had no diarrhea, no vomiting.? She does have a new oxygen requirement.? She has past medical history of COPD and with this hospitalization was found to need oxygen with exertion.? She is being sent home with oxygen to use as needed.? She was evaluated by PT and they did not feel that she needed any home services. They recommend she walk from chair to door at least once every hour at her own pace.? Do deep breathing exercises x 5 with chest expansion exercises at least one set every hour. She has her chronic wound care done at the [facility].? Recommend she continue that and any orders related to her wounds should come from them. She is stable and only requires oxygen with moderate activity.? Respiratory therapy and care managers have arranged for her to have oxygen at home. She is being discharged to home with Home Health Nursing. Discussed with Dr Stewart Home Meds and New Rx's Prescriptions: New oxycodone 10 mg Tablet 10 mg PO QID Qty: 0 0RF prednisone 20 mg Tablet 40 mg PO DAILY Qty: 10 0RF Mag 64 64 mg Tablet,Delayed Release (Dr/Ec) 64 mg PO DAILY Qty: 30 0RF potassium chloride 20 mEq tablet extended release 20 meq PO DAILY Qty: 30 0RF ipratropium-albuterol 0.5 mg-3 mg(2.5 mg base)/3 mL Solution For Nebulization 3 ml UPD QID PRN (Reason: shortness of breath or wheezing) Qty: 90 0RF Continued sertraline 100 mg tablet 100 mg PO DAILY omega 2-xum-zzh-fish oil [Fish Oil] 1,000 mg (120 mg-180 mg) capsule 1 cap PO DAILY torsemide 20 mg tablet 20 mg PO DAILY Qty: 90 3RF acetaminophen [Mapap (acetaminophen)] 500 mg capsule 1,000 mg PO TID levothyroxine 75 MCG tablet 75 mcg PO DAILY pregabalin [Lyrica] 100 MG capsule 100 mg PO TID cyclobenzaprine 10 mg tablet 10 mg PO BID metoprolol succinate 100 mg tablet extended release 24 hr 100 mg PO BID Qty: 180 3RF omeprazole 20 mg capsule,delayed release(DR/EC) 20 mg PO DAILY Label Comments: TAKE ONE CAPSULE BY MOUTH EVERY DAY WITH EVENING MEAL albuterol sulfate [Ventolin HFA] 90 mcg/actuation HFA aerosol inhaler 180 mcg INHALATION Q2H Label Comments: INHALE TWO PUFFS BY MOUTH EVERY 2 HOURS NEEDED FOR SHORTNESS OF BREATH- MAX DAILY DOSE OF 12 PUFFS Xarelto 20 mg tablet 20 mg PO DAILY Label Comments: TAKE ONE TABLET BY MOUTH EVERY DAY WITH EVENING MEAL oxycodone 10 mg tablet 10 mg PO QID PRN Label Comments: TAKE ONE TABLET BY MOUTH FOUR TIMES A DAY NEEDED FOR PAIN Stiolto Respimat 2.5-2.5 mcg/actuation Mist 2 puff INHALATION DAILY Discharge Instructions Instructions: Using Oxygen at Home (DC), COPD (Chronic Obstructive Pulmonary Disease) (DC), Chronic Lung Disease and Infection Prevention (GEN) Additional Instructions: Follow up with PCP. Do deep breathing exercises x 5 with chest expansion exercises at least one set every hour. Walk from chair to door at least once every hour at her own pace.? Use oxygen as necessary to keep oxygen saturation above 88%. Stand Alone Forms: Nursing Discharge Form Referrals: Storm Valencia MD [Primary Care Provider] - (Please call to make an appointment in the next 2 weeks ) Activity:: Activity as Tolerated Equipment/Supplies:: Oxygen (L/min Below) Diet:: Low Sodium Discharge Orders Discharge Orders: Discharge Order (Routine); Ordered 05/27/22 Ordered By: Claire Cai DS: Summary Time Spent with Patient providing and/or coordinating discharge services: Greater than 30 minutes Status at Discharge Functional status at discharge: uses cane/walker Overall status at discharge: patient is progressing back to baseline Mental Status: mental status grossly normal Speech and Movement: speech and movement normal Mood: congruent mood Affect: normal affect Exam Narrative Exam Narrative: Sitting in the chair in the room, up right speaking in full sentences Const General: cooperative, no acute distress, frail appearing and ill appearing chronically Nutritional Appearance: obese morbidly obese Orientation: alert, awake and oriented x3 HENMT Head: normal to inspection Mouth: oral mucosae normal Chest Chest: normal inspection of the chest Resp Effort & Inspection: normal respiratory effort Auscultation: diminished lung sounds and no wheezes Cardio Rate: regular rate Rhythm: regular rhythm GI Inspection: normal to inspection and obesity Palpation: soft Neuro General: patient alert, patient awake and patient oriented x3 Extrem General: normal to inspection and full ROM Psych Mental Status: mental status grossly normal Speech and Movement: speech and movement normal Mood: congruent mood Affect: normal affect DS: Data Vitals/I&O Vitals and I&O: Vital Signs Temperature 37.2 C 05/27/22 15:36 Temperature Source Tympanic 05/27/22 15:36 Pulse 60 05/27/22 15:36 Pulse Rhythm Regular 05/27/22 08:30 Pulse 68 05/21/22 13:00 Respiratory Rate 17 05/27/22 15:36 Respiratory Effort 05/27/22 08:30 Respiratory Depth Normal 05/27/22 08:30 Respiratory Pattern Normal 05/27/22 08:30 Blood Pressure 137/83 05/27/22 15:36 Blood Pressure Mean 79 05/21/22 13:00 Blood Pressure Position Sitting 05/21/22 08:41 Pulse Oximetry 92 05/27/22 15:36 Oxygen Delivery Method Room Air 05/27/22 15:57 Oxygen Flow Rate 0 05/27/22 15:57 Fraction of Inspired Oxygen (FIO2) 26 05/25/22 16:20 Pain Level 6 05/27/22 16:03 Comment 05/27/22 07:51 Intake & Output 05/26/22 05/27/22 05/27/22 23:59 11:59 23:59 Intake Total 540 / 780 300 / 300 Balance 540 / 780 300 / 300 Intake: Oral 540 / 780 300 / 300 Other: Urine Color Yellow Urine Appearance Clear Clear Urine Odor Normal Comment pt voids independently and denies any discomfort or abnormal issues with voiding patient seen using toilet at this time patient voids independently Stool Size Moderate Stool Characteristics Soft Formed Voiding Methods Toilet Toilet Toilet Data Completed and Pending Labs on day of discharge: Labs from last 24 hours 05/27/22 05/26/22 05/26/22 05:58 19:40 19:40 WBC 3.32 L RBC 4.80 Hgb 14.2 Hct 43.1 MCV 90 MCH 29.6 MCHC 32.9 RDW 13.2 Plt Count 178 MPV 9.4 Immature Gran % 0.0 Neutrophils % 56.0 Lymphocytes % 36.0 Atypical Lymphs % 3 Monocytes % 5.0 Eosinophils % 0.0 Basophils % 0.0 Nucleated RBC % 0.0 Absolute Neutrophils 1.86 Absolute Lymphocytes 1.29 Absolute Monocytes 0.17 Absolute Eosinophils 0.00 Absolute Basophils 0.00 RBC Morphology Normal Sodium 138 Potassium 3.4 L Chloride 98 Carbon Dioxide 34.5 H Anion Gap 5.5 BUN 20 H Creatinine 0.8 Est GFR (CKD-EPI 2020) 84.30 Glucose 170 H Calcium 8.8 Magnesium 1.7 L PFSH All Active Problems (Updated 05/23/22 @ 16:14 by Lona Stafford NP) Respiratory failure with hypoxia (Acute) Open wound of both lower extremities (Acute) Influenza A (Acute) Discharge planning issues (Acute) DVT prophylaxis (Acute) Tobacco use (Chronic) Obesity (Chronic) Pulmonary hypertension (Acute) Multiple rib fractures (Acute) Intractable pain (Acute) Sleep apnea (Acute) Ventricular hypertrophy determined by echocardiography (Chronic) Anxiety with depression (Acute) Cough (Acute) Cellulitis (Acute) Pulmonary embolism (Chronic) Fluid overload (Acute) Atrial flutter (Chronic) Medical History (Updated 05/23/22 @ 16:14 by Lona Stafford NP) Asymptomatic varicose veins At risk for domestic abuse Benign neoplasm of uvula Bilateral leg pain Cholelithiasis Depression Disequilibrium Dyspnea on exertion Foot callus History of rectal bleeding Hx of thrombophlebitis Hypoxemia Knee pain Loss of balance Lymphadenopathy Morbid obesity Myalgia Obstructive sleep apnea Osteoarthritis Osteoarthritis of knee Osteoarthritis of knees, bilateral Plantar wart, left foot Reactive depression Resting tremor Right shoulder pain Sciatica Sciatica of left side Stiffness in joint Tremor Trichotillomania Unexplained falls Varicose veins of both lower extremities Venous insufficiency of right leg Vitamin D deficiency Weakness of right leg Surgical History Colonoscopy - MAC (02/01/18) Hx of tubal ligation Social History Smoking/Tobacco Use Status: Former Tobacco Use Tobacco: How many years used: 42 Smoking risk assessment performed?: Yes Alcohol Intake: former Drug use: Never Substance use type: does not use Do you feel safe at home: Yes Do you feel safe in your relationship?: Yes
[2022-05-27] MEDS: Rivaroxaban 10 MG TABLET PO (17:21)
--- NOTE | 2022-05-28 08:23 | CMDISCH_ITS ---
- If Service Date Differs Date of service: 05/27/22 Time of Service: 17:00 LACE Index Scoring Tool - Questions: Length of Stay (in days): 4 - 6 Acuity (Admit via E.D.?): Yes Comorbidities: Chronic Pulmonary Disease (COPD) E.D. Visits: 2 - Answers: Total Score: 11 Risk of Readmission: High Risk Care Management Discharge Reason for Hospitalization: Influenza A Discharge Plan: Aparna is discharged home via private vehicle with . She will follow up with communtity providers and discharge plan of care. New RX's are transmitted to [facility]. New [facility] RN/ANIMAL HERDER services are ordered. New O2 is delivered to patients home prior to discharge, and RT provided pt with a [employer] O2 tank on discharge. Aparna will follow up with Dr. Valencia with in 2 weeks, but reports that she has a previously scheduled appointment to see him tomorrow. Aparna will resume her wound care @ [facility]. Patient/Family Education Needs: Review discharge instructions, limitations, medications and plan to follow up with community providers. Discuss ask me three and goals of self care. Services Needed at Discharge: DME Agency (Home O2, [facility]), Home Health Care Services ([facility] RN/ANIMAL HERDER, CM notified)
[2022-07-31 13:06] LABS: Lab Add On Test DONE
== END 2022-05-27 19:55 | disposition home health service (06) | DRG 193 ==
LOC: ER 13:19 → MS 13:30
PROVIDERS: Nurse Practitioner Acute Care; Nurse Practitioner Family; Admitting Provider Family Medicine; Emergency Provider Student in an Organized Health Care Education/Training Program; PCP Internal Medicine; Visit Provider Family Medicine
DX: J10.1 Influenza due to other identified influenza virus with other respiratory manifestations (principal); J96.01 Acute respiratory failure with hypoxia; I48.92 Unspecified atrial flutter; Z68.43 Body mass index [BMI] 50.0-59.9, adult; L97.919 Non-pressure chronic ulcer of unspecified part of right lower leg with unspecified severity; L97.929 Non-pressure chronic ulcer of unspecified part of left lower leg with unspecified severity; J44.9 Chronic obstructive pulmonary disease, unspecified; I27.20 Pulmonary hypertension, unspecified; Z79.01 Long term (current) use of anticoagulants; Z86.711 Personal history of pulmonary embolism; F41.8 Other specified anxiety disorders; E66.01 Morbid (severe) obesity due to excess calories; G47.33 Obstructive sleep apnea (adult) (pediatric); E55.9 Vitamin D deficiency, unspecified; M54.30 Sciatica, unspecified side; Z87.891 Personal history of nicotine dependence; G89.29 Other chronic pain; R05.1 Acute cough; I83.018 Varicose veins of right lower extremity with ulcer other part of lower leg; I83.028 Varicose veins of left lower extremity with ulcer other part of lower leg; Z79.891 Long term (current) use of opiate analgesic; I51.7 Cardiomegaly
CPT/HCPCS: 36410; 36415; 80048; 80053; 87637; 93005; 94618; 94640; 96374; 97161; 99285; 71045; 81003; 81015; 83735; 83880; 84443; 84484; 85025; 93010; 94664; 94668; 94760; 99219; 99225; 99232; 99233; 99239; J2930; J7512; J7620

== ENCOUNTER 2022-06-04 15:21 | Emergency (ER) | payer MEDICARE, MEDICAID, SELFPAY ==
[2022-06-04 15:24] VITALS: BP 115/74; PULSE 74; RESP 18; TEMP 36.6; O2SAT 92
--- NOTE | 2022-06-04 15:43 | ED.GENADUL_ITS ---
Discharge Plan Disposition Patient Disposition: Home Condition: Improving Discharge Details Clinical Impression: COPD exacerbation Primary Care Provider: Storm Valencia ED Provider: Bucky Lopez Home Meds and New Rx's Prescriptions: New prednisone 10 mg tablet See Rx Instructions .ROUTE .COMPLEX Qty: 36 0RF Rx Instructions: 30 mg daily for 3 days, 20 mg daily for 3 days, 10 mg daily for 3 days, and then stop. Continued sertraline 100 mg tablet 100 mg PO DAILY omega 4-vvu-jbo-fish oil [Fish Oil] 1,000 mg (120 mg-180 mg) capsule 1 cap PO DAILY acetaminophen [Mapap (acetaminophen)] 500 mg capsule 1,000 mg PO TID torsemide 20 mg tablet 20 mg PO DAILY Qty: 90 3RF levothyroxine 75 MCG tablet 75 mcg PO DAILY pregabalin [Lyrica] 100 MG capsule 100 mg PO TID cyclobenzaprine 10 mg tablet 10 mg PO BID metoprolol succinate 100 mg tablet extended release 24 hr 100 mg PO BID Qty: 180 3RF omeprazole 20 mg capsule,delayed release(DR/EC) 20 mg PO DAILY Label Comments: TAKE ONE CAPSULE BY MOUTH EVERY DAY WITH EVENING MEAL albuterol sulfate [Ventolin HFA] 90 mcg/actuation HFA aerosol inhaler 180 mcg INHALATION Q2H Label Comments: INHALE TWO PUFFS BY MOUTH EVERY 2 HOURS NEEDED FOR SHORTNESS OF BREATH- MAX DAILY DOSE OF 12 PUFFS Xarelto 20 mg tablet 20 mg PO DAILY Label Comments: TAKE ONE TABLET BY MOUTH EVERY DAY WITH EVENING MEAL oxycodone 10 mg tablet 10 mg PO QID PRN Label Comments: TAKE ONE TABLET BY MOUTH FOUR TIMES A DAY NEEDED FOR PAIN oxycodone 10 mg Tablet 10 mg PO QID Qty: 0 0RF prednisone 20 mg Tablet 40 mg PO DAILY Qty: 10 0RF Mag 64 64 mg Tablet,Delayed Release (Dr/Ec) 64 mg PO DAILY Qty: 30 0RF potassium chloride 20 mEq tablet extended release 20 meq PO DAILY Qty: 30 0RF ipratropium-albuterol 0.5 mg-3 mg(2.5 mg base)/3 mL Solution For Nebulization 3 ml UPD QID Qty: 180 0RF Stiolto Respimat 2.5-2.5 mcg/actuation Mist 2 puff INHALATION DAILY Discharge Instructions Instructions: COPD (Chronic Obstructive Pulmonary Disease) (ED) Additional Instructions: Our care management team will arrange a follow-up for you in clinic with Dr. Guerrero. Please take prednisone as prescribed, next dose tomorrow and then you have slowly taper off over days time. Take as prescribed until finished. Use your home oxygen as previously prescribed. Return if you develop a worsening cough, fever, or any other acute concerns. I recommend you use a home pulse oximeter, available at most local pharmacies. Discharge Data Discharge Date/Time-TO BE ENTERED AT DEPARTURE: 06/04/22 17:38 Medical Decision Making This is a pleasant 61-year-old female who was admitted to the hospital for respiratory distress. She was discharged on a burst of prednisone 40 mg daily on May 27 and states she finished it 2 days ago. Since that she has had a mild increase in her exertional dyspnea, that she notes is wheezing. She denies chest pain. She notes that she has had a 10 pound weight loss since being in the hospital. Patient has previously seen Dr. Guerrero in pulmonology. She has home oxygen 3 L as needed. On arrival to the ER the patient is alert and well-appearing, interactive and speaking in full sentences. Her temp is 36, pulse 74, blood pressure 115/74 and she oxygenates 92% on room air while at rest. Exam reveals bilateral diminished breath sounds and expiratory wheeze. It is noted that with exertion the patient Differential diagnosis includes COPD exacerbation, pneumonia, breakthrough PE. Patient referred for chest x-ray and laboratory testing. Laboratories note a white count of 10, hematocrit 46, platelets 381. D-dimer is 338. Electrolytes unremarkabl. Chest x-ray with platelike linear atelectasis in left lung, no acute infiltrate. We will place patient on increased burst and taper of prednisone. We will ask f or follow-up in pulmonology clinic. She will use oxygen as previously prescribed at home as needed. She understands home management. She is stable for discharge at this time. HPI General Mode of arrival: ambulatory . Date/Time Provider Initiated Documentation: 06/04/22 15:23 . Limitations to Documentation: no limitations . Information obtained by: patient and family . History of Present Illness 61 year old F presents to the emergency department with the chief complaint of Shortness of breath, persistent and somewhat worse since stopping prednison, described as moderate, and is localized to the chest. Patient reports no radiation. Patient started experiencing this day(s) and it has been intermittent. Rest improves symptom(s), Movement worsens symptoms . Patie nt notes cough and shortness of breath; denies chest pain, fever/chills, syncope and weakness. Patient did receive the following treatments prior to arrival, none Related Data Home Medications Medication Instructions Recorded Confirmed levothyroxine 75 mcg tablet 75 mcg PO DAILY 11/14/13 05/21/22 pregabalin 100 mg capsule (Lyrica) 100 mg PO TID 01/08/18 05/21/22 tiotropium 2.5 mcg-olodaterol 2.5 2 puff inhalation DAILY 03/26/20 05/21/22 mcg/actuation mist for inhalation (Stiolto Respimat) acetaminophen 500 mg capsule 1,000 mg PO TID 03/07/21 05/21/22 (Mapap (acetaminophen)) cyclobenzaprine 10 mg tablet 10 mg PO BID 06/27/21 05/21/22 metoprolol succinate 100 mg 100 mg PO BID #180 tabs 07/04/21 05/21/22 tablet,extended release 24 hr omega 1-mfs-dhc-fish oil 1,000 mg 1 cap PO DAILY 07/29/21 04/28/22 (120 mg-180 mg) capsule (Fish Oil) sertraline 100 mg tablet 100 mg PO DAILY 04/28/22 05/21/22 albuterol sulfate 90 mcg/actuation 180 mcg inhalation Q2H 05/21/22 05/21/22 aerosol inhaler (Ventolin HFA) omeprazole 20 mg capsule,delayed 20 mg PO DAILY 05/21/22 05/21/22 release oxycodone 10 mg tablet 10 mg PO QID PRN 05/21/22 05/21/22 rivaroxaban 20 mg tablet (Xarelto) 20 mg PO DAILY 05/21/22 05/21/22 magnesium chloride 64 mg 64 mg PO DAILY #30 tabs 05/27/22 (magnesium chloride) tablet,delayed release (Mag 64) oxycodone 10 mg tablet 10 mg PO QID #0 tabs 05/27/22 potassium chloride 20 mEq 20 meq PO DAILY #30 tabs 05/27/22 tablet,extended release prednisone 20 mg tablet 40 mg PO DAILY #10 tabs 05/27/22 ipratropium 0.5 mg-albuterol 3 mg 3 ml UPD QID #180 mL 05/28/22 (2.5 mg base)/3 mL nebulization soln torsemide 20 mg tablet 20 mg PO DAILY #90 tabs 06/02/22 prednisone 10 mg tablet See Rx Instructions .Route 06/04/22 .COMPLEX #36 tabs Previous Rx's Medication Instructions Recorded metoprolol succinate 100 mg 100 mg PO BID #180 tabs 07/04/21 tablet,extended release 24 hr magnesium chloride 64 mg 64 mg PO DAILY #30 tabs 05/27/22 (magnesium chloride) tablet,delayed release (Mag 64) oxycodone 10 mg tablet 10 mg PO QID #0 tabs 05/27/22 potassium chloride 20 mEq 20 meq PO DAILY #30 tabs 05/27/22 tablet,extended release prednisone 20 mg tablet 40 mg PO DAILY #10 tabs 05/27/22 ipratropium 0.5 mg-albuterol 3 mg 3 ml UPD QID #180 mL 05/28/22 (2.5 mg base)/3 mL nebulization soln torsemide 20 mg tablet 20 mg PO DAILY #90 tabs 06/02/22 prednisone 10 mg tablet See Rx Instructions .Route 06/04/22 .COMPLEX #36 tabs Allergies Allergy/AdvReac Type Severity Reaction Status Date / Time bupropion [From Wellbutrin] AdvReac Intermediate Nausea Verified 04/28/22 10:07 General Stated Complaint: SOB TIM: 3 Review of Systems Narrative: Denies chest pain, notes a 10 pound weight loss, no leg pain or swelling that is new. Notes she has chronic venous stasis changes of bilateral lower extremity and a slow healing wound which is followed by wound care on the left lower extremity. Taking her medications. 8 systems were reviewed and otherwise negative, see HPI. PFSH All Active Problems (Updated 06/04/22 @ 17:20 by Bucky Lopez MD) COPD exacerbation (Acute) Respiratory failure with hypoxia (Acute) Open wound of both lower extremities (Acute) Influenza A (Acute) Tobacco use (Chronic) Obesity (Chronic) Pulmonary hypertension (Acute) Multiple rib fractures (Acute) Intractable pain (Acute) Sleep apnea (Acute) Ventricular hypertrophy determined by echocardiography (Chronic) Anxiety with depression (Acute) Cellulitis (Acute) Pulmonary embolism (Chronic) Fluid overload (Acute) Atrial flutter (Chronic) Medical History Asymptomatic varicose veins At risk for domestic abuse Benign neoplasm of uvula Bilateral leg pain Cholelithiasis Depression Disequilibrium Dyspnea on exertion Foot callus History of rectal bleeding Hx of thrombophlebitis Hypoxemia Knee pain Loss of balance Lymphadenopathy Morbid obesity Myalgia Obstructive sleep apnea Osteoarthritis Osteoarthritis of knee Osteoarthritis of knees, bilateral Plantar wart, left foot Reactive depression Resting tremor Right shoulder pain Sciatica Sciatica of left side Stiffness in joint Tremor Trichotillomania Unexplained falls Varicose veins of both lower extremities Venous insufficiency of right leg Vitamin D deficiency Weakness of right leg Surgical History Colonoscopy - MAC (02/01/18) Hx of tubal ligation Social History Smoking/Tobacco Use Status: Former Tobacco Use Tobacco: How many years used: 42 Smoking risk assessment performed?: Yes Alcohol Intake: former Drug use: Never Substance use type: does not use Do you feel safe at home: Yes Do you feel safe in your relationship?: Yes Exam Narrative Exam Narrative: GEN: awake, alert, oriented 3. Pleasant, well groomed, interactive. HEAD: Normocephalic, atraumatic ENT: Mucous membranes moist, oropharynx unremarkable, External ear exam unremarkable EYES: PERRL, EOMI NECK: Full ROM, no CANDY, no menigismus CHEST/RESP: Nontender, diminished breath sounds with bilateral end expiratory wheeze present CARDIOVASCULAR: RRR, no murmur, rub ulices. 2+ Rad pulse bilateral ABDOMEN: Soft, nontender, no mass. +Bowel sounds EXT: Full ROM, chronic venous stasis changes bilaterally, left lower extremity above the ankle is dressed, clean dry and intact. Neuro: Grossly normal neurologic exam, conversant, interactive. Psych: Speech fluent, thoughts congruent, affect normal Course Vital Signs Vital signs: Vital Signs Temperature 36.6 C 06/04/22 15:24 Pulse 74 06/04/22 15:24 Respiratory Rate 18 06/04/22 15:24 Blood Pressure 115/74 06/04/22 15:24 Pulse Oximetry 92 06/04/22 15:24 Temperature 36.6 C 06/04/22 15:24 Temperature Source Tympanic 06/04/22 15:24 Pulse 74 06/04/22 15:24 Respiratory Rate 18 06/04/22 15:24 Respiratory Effort 06/04/22 15:28 Respiratory Depth Normal 06/04/22 15:28 Respiratory Pattern Normal 06/04/22 15:28 Blood Pressure 115/74 06/04/22 15:24 Blood Pressure Position Supine 06/04/22 15:24 Pulse Oximetry 92 06/04/22 15:24 Oxygen Delivery Method Room Air 06/04/22 15:24 Oxygen Flow Rate 0 06/04/22 15:24 Pain Level 5 06/04/22 15:24
[2022-06-04] MEDS: predniSONE 20 MG TAB 60 MG PO (15:51)
[2022-06-04 15:52] VITALS: PULSE 71; PULSE 84; RESP 89; O2SAT 91; O2SAT 92
[2022-06-04 16:08] LABS: Abs Immature Grans 0.07 10^3/uL (0.0-0.06); Absolute Basophil Count 0.04 10^3/uL (0.0-0.2); Absolute Eosinophil Count 0.05 10^3/uL (0.0-0.7); Absolute Lymphocyte Count 2.41 10^3/uL (1.2-3.4); Absolute Monocyte Count 0.69 10^3/uL (0.1-0.8); Absolute Neutrophil Count 7.55 10^3/uL (1.2-6.7); Basophils % 0.4; Eosinophils % 0.5; HCT 46.9 % (36.0-46.0); Immature Grans % 0.6; Lymphocytes % 22.3; MCH 29.1 pg (27.0-33.0); MCV 91 fL (80-95); MPV 8.6 fL (8.0-11.0); Monocytes % 6.4; Neutrophils % 69.8; Platelet Count 381 10^3/uL (130-400); RBC 5.15 10^6/uL (3.93-5.22); RDW 13.6 % (11.7-14.6); RDW-SD 46.2 fL; WBC 10.82 10^3/uL (4.4-10.8)
[2022-06-04 16:11] VITALS: PULSE 85; O2SAT 90
[2022-06-04] MEDS: Albuterol/Ipratropium 3 ML UPD VIAL UPD (16:11)
[2022-06-04 16:19] LABS: Anion Gap 6.7 mmol/L (3-11); BUN 16 mg/dL (7-18); CO2 34.3 mmol/L (21.0-32.0); Calcium 9.2 mg/dL (8.5-10.1); Chloride 98 mmol/L (98-107); Estimated GFR 64.49 (mL/min/1.73m2); Glucose 114 mg/dL (74-106); Sodium 139 mmol/L (136-145)
[2022-06-04 16:24] LABS: INR 1.2 (0.9-1.1); Prothrombin Time 11.6 sec (9.3-11.0)
[2022-06-04 16:41] VITALS: PULSE 83; O2SAT 91
[2022-06-04 16:41] LABS: D-Dimer 338 ng/mlFEU (<500)
--- NOTE | 2022-06-04 16:45 | DI.RAD_ITS ---
Exam(s) XR CHEST 2V PA LATERAL EXAM: XR CHEST 2V PA LATERAL CLINICAL HISTORY: SOB, COPD. TECHNIQUE: 2D digital imaging was performed. COMPARISON: No exams were available for comparison FINDINGS: 2 views: Heart size is upper normal. The mediastinum is not widened. Right lung is clear. There is platelike atelectasis in the left lung base, not previously present. No pleural effusions. No pulmonary edema. No pneumothorax. IMPRESSION: There is platelike atelectasis in the left lung base. DATA REPOSITORY: RADIATION DOSE DELIVERED:
--- NOTE | 2022-06-04 17:11 | DI.VRAD_ITS ---
PROCEDURE INFORMATION: Exam: XR Chest Exam date and time: 06/04/2022 4:56 PM Age: 61 years old Clinical indication: Cough and shortness of breath TECHNIQUE: Imaging protocol: Radiologic exam of the chest. Views: 2 views. COMPARISON: CR XR PORTABLE CHEST AP 05/21/2022 10:04 AM FINDINGS: Lungs: Mild linear scarring versus atelectasis at the left lung base near the CP angle. No acute infiltrates or edema. Pleural spaces: No pleural effusion. Heart/Mediastinum: Normal heart size. Bones/joints: Thoracic spine degenerative changes. IMPRESSION: 1. Left lung base linear scar versus atelectasis. 2. No acute infiltrates or edema. 3. No pleural effusions. Dictated and Authenticated by: Daniel Amezquita MD. Ordering:JULIO Lawler MD
[2022-06-04 17:35] VITALS: BP 118/77; PULSE 76; TEMP 36.7; O2SAT 90
--- NOTE | 2022-06-04 18:28 | NUR.NOTE ---
Nursing Note: referral to [facility] for pulomonalogy establish
--- NOTE | 2022-06-05 12:23 | NUR.NOTE ---
Nursing Note: Daughter Tayler called stating that the prescription for prednisone was supposed to be mg to start not mg to start. Due to 3 ambulances coming in had to put her on hold multiple times, and she hung up. Tried to call her back but it went to voicemail and left a message.
== END 2022-06-04 17:38 | disposition home or self-care (01) ==
PROVIDERS: Emergency Provider Emergency Medicine; PCP Internal Medicine
DX: J44.1 Chronic obstructive pulmonary disease with (acute) exacerbation (principal); I87.8 Other specified disorders of veins
CPT/HCPCS: 36415; 80048; 94640; 99283; 71046; 85025; 85379; 85610; 99284; J7512; J7620

== ENCOUNTER 2022-09-02 17:53 | Outpatient (REF) | payer MEDICARE, MEDICAID, SELFPAY ==
[2022-09-02 21:00] LABS: Anion Gap 6.1 mmol/L (3-11); BUN 12 mg/dL (7-18); CO2 30.9 mmol/L (21.0-32.0); Calcium 9.1 mg/dL (8.5-10.1); Chloride 105 mmol/L (98-107); Estimated GFR 64.49 (mL/min/1.73m2); Glucose 76 mg/dL (74-106); Potassium 4.6 mmol/L (3.5-5.1); Sodium 142 mmol/L (136-145)
== END 2022-09-02 17:54 | disposition home or self-care (01) ==
LOC: NCHCN 17:53
PROVIDERS: PCP Internal Medicine; Visit Provider Internal Medicine
DX: J44.9 Chronic obstructive pulmonary disease, unspecified (principal); I27.20 Pulmonary hypertension, unspecified; I48.92 Unspecified atrial flutter; E66.01 Morbid (severe) obesity due to excess calories
CPT/HCPCS: 80048

== ENCOUNTER 2022-10-10 00:15 | Outpatient (CLI) | payer MEDICARE, MEDICAID, SELFPAY ==
--- NOTE | 2022-10-10 07:30 | DI.CTLCSR_ITS ---
Exam(s) CT CHEST LUNG CANCER SCREEN EXAM: CT CHEST LUNG CANCER SCREEN CLINICAL HISTORY: Screening for lung cancer,CURRENT SMOKER, F17.210 TECHNIQUE: Imaging Protocol: Axial computed tomography images with coronal and sagittal reformatted images were created and reviewed. Low dose screening protocol. COMPARISON: CT CT CHEST LUNG CANCER SCREEN from 09/10/2021 FINDINGS: Tracheobronchial tree: No bronchiectasis or mucus plugging.. Mediastinum and Nataly: No dominant adenopathy or fluid collection. Pulmonary parenchyma: No consolidation or dominant measurable mass. Mild emphysematous changes. Mild multifocal linear scarring or atelectasis. Lung Nodules: None. Pleura: No effusion. No pneumothorax. Heart: The heart is not dilated. No coronary artery calcifications are seen. Aorta: Thoracic aorta non-dilated. Upper abdomen: Extremely limited limited visibility due to patient body habitus. Bones: Degenerative changes in the spine. No compression fractures. Soft Tissues: Unremarkable. IMPRESSION: No suspicious pulmonary nodules. Lung RADS Cat 1 - Negative: No nodules and definitely benign nodules Lung-RADS 1.0 CATEGORIES: Category 0 - Prior chest CT exam(s) being located for comparison. Category 1 - Annual screening in 12 months. No nodules or definitely benign nodules. Category 2 - Annual screening in 12 months. Benign appearance. Nodules with low likelihood of becomin g active cancer. Category 3 - 6-month follow-up. Probably benign. Short-term follow-up suggested. Nodules with low lik elihood of becoming active cancer. Category 4A - 3-month follow-up and CT/PET if >8 mm in size. Suspicious finding. Findings which requi re additional testing. Category 4B - Findings which require additional testing and tissue sampling. Category 4X - Category 3 or 4 nodules with additional features or imaging findings that increases the suspicion of malignancy. Modifier S- Potentially clinically significant findings (non lung cancer) RADIATION DOSE DELIVERED: 87.11mGy.cm Total DLP DATA REPOSITORY: All CT scans at this facility are submitted to the National Radiology Data Registry (NRDR) Dose Index Registry (DIR) with the [employer] ([employer]). RADIATION OPTIMIZATION: All CT scans at this facility use at least one of these dose optimization te chniques: automated exposure control; mA and/or kV adjustment per patient size (includes targeted exa ms where dose is matched to clinical indication); or iterative reconstruction.
== END 2022-10-10 00:35 ==
LOC: DI 00:15
PROVIDERS: PCP Internal Medicine; Visit Provider Student in an Organized Health Care Education/Training Program
DX: F17.210 Nicotine dependence, cigarettes, uncomplicated (principal)
CPT/HCPCS: 71271

== ENCOUNTER 2022-12-26 12:32 | Outpatient (CLI) | payer MEDICARE, MEDICAID, SELFPAY ==
--- NOTE | 2022-12-26 | DI.RAD_ITS ---
Exam(s) XR FOOT RT COMPLETE EXAM: XR FOOT RT COMPLETE CLINICAL HISTORY: RT FOOT PAIN M79.671. TECHNIQUE: 2D digital imaging was performed. COMPARISON: No exams were available for comparison FINDINGS: 3 views There is soft tissue swelling over the entire foot. No evidence of obvious acute fracture nor diastasis of the Lisfranc joint. There is an osseous trian gular density noted at the medial aspect of the calcaneocuboid joint, this measuring 1.1 x 0.7 cm, of questionable significance. No osseous lesions. No erosions. IMPRESSION: As above. If clinically indicated follow-up CT or MRI can be performed for added sensitivity/specifi city. Incidentally noted is a small 1 mm radiopaque foreign body on the posterior aspect of the foot, later ally. DATA REPOSITORY: RADIATION DOSE DELIVERED:
== END 2022-12-26 12:52 ==
LOC: DI 12:33
PROVIDERS: PCP Internal Medicine; Visit Provider Internal Medicine
DX: M85.9 Disorder of bone density and structure, unspecified (principal); S90.851A Superficial foreign body, right foot, initial encounter; M79.671 Pain in right foot; X58.XXXA Exposure to other specified factors, initial encounter
CPT/HCPCS: 73630

== ENCOUNTER 2023-01-13 13:39 | Outpatient (REF) | payer MEDICARE, MEDICAID, SELFPAY ==
[2023-01-13 21:22] LABS: Abs Immature Grans 0.02 10^3/uL (0.0-0.06); Absolute Basophil Count 0.03 10^3/uL (0.0-0.2); Absolute Eosinophil Count 0.11 10^3/uL (0.0-0.7); Absolute Lymphocyte Count 1.71 10^3/uL (1.2-3.4); Absolute Monocyte Count 0.53 10^3/uL (0.1-0.8); Absolute Neutrophil Count 3.35 10^3/uL (1.2-6.7); Basophils % 0.5; Eosinophils % 1.9; HCT 43.8 % (36.0-46.0); HGB 14.3 g/dL (11.2-15.7); Immature Grans % 0.3; Lymphocytes % 29.7; MCH 30.2 pg (27.0-33.0); MCHC 32.6 % (32.0-36.0); MCV 93 fL (80-95); MPV 9.9 fL (8.0-11.0); Monocytes % 9.2; Neutrophils % 58.4; Platelet Count 269 10^3/uL (130-400); RBC 4.73 10^6/uL (3.93-5.22); RDW 14.5 % (11.7-14.6); RDW-SD 49.4 fL; WBC 5.75 10^3/uL (4.4-10.8)
[2023-01-13 21:24] LABS: ESR 32 mm/hr (0-30)
[2023-01-13 21:55] LABS: ALT 22 U/L (14-59); AST 18 U/L (15-37); Albumin 3.5 g/dL (3.4-5.0); Alkaline Phosphatase 114 U/L (46-116); Anion Gap 4.9 mmol/L (3-11); BUN 12 mg/dL (7-18); Bilirubin, Total 0.3 mg/dL (0.2-1.0); C-Reactive Protein 1.16 mg/dL (0.0-0.3); CO2 33.1 mmol/L (21.0-32.0); CREATININE 0.7 mg/dL (0.55-1.02); Calcium 9.1 mg/dL (8.5-10.1); Chloride 103 mmol/L (98-107); Estimated GFR 98.34 (mL/min/1.73m2); Glucose 75 mg/dL (74-106); Potassium 5.1 mmol/L (3.5-5.1); Sodium 141 mmol/L (136-145); Total Protein 7.6 g/dL (6.4-8.2)
== END 2023-01-13 13:40 | disposition home or self-care (01) ==
LOC: NCHCN 13:39
PROVIDERS: PCP Internal Medicine; Visit Provider Internal Medicine
DX: M79.671 Pain in right foot (principal); R70.0 Elevated erythrocyte sedimentation rate; R79.82 Elevated C-reactive protein (CRP)
CPT/HCPCS: 80053; 85652; 85025; 86140

== ENCOUNTER 2023-01-18 20:39 | Observation (INO) | payer MEDICARE, MEDICAID, SELFPAY ==
[2023-01-18 20:45] VITALS: BP 133/77; PULSE 63; RESP 18; TEMP 36.5; O2SAT 98
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
[2023-01-18 21:53] LABS: Abs Immature Grans 0.02 10^3/uL (0.0-0.06); Absolute Basophil Count 0.03 10^3/uL (0.0-0.2); Absolute Eosinophil Count 0.13 10^3/uL (0.0-0.7); Absolute Monocyte Count 0.49 10^3/uL (0.1-0.8); Absolute Neutrophil Count 5.86 10^3/uL (1.2-6.7); Basophils % 0.4; Eosinophils % 1.6; HCT 45.6 % (36.0-46.0); HGB 14.9 g/dL (11.2-15.7); Immature Grans % 0.2; Lymphocytes % 18.7; MCH 29.5 pg (27.0-33.0); MCHC 32.7 % (32.0-36.0); MCV 90 fL (80-95); MPV 9.2 fL (8.0-11.0); Monocytes % 6.1; Platelet Count 275 10^3/uL (130-400); RBC 5.05 10^6/uL (3.93-5.22); RDW 14.1 % (11.7-14.6); WBC 8.03 10^3/uL (4.4-10.8)
[2023-01-18 22:00] LABS: Anion Gap 7.4 mmol/L (3-11); BUN 9 mg/dL (7-18); CO2 29.6 mmol/L (21.0-32.0); CREATININE 0.8 mg/dL (0.55-1.02); Calcium 9.6 mg/dL (8.5-10.1); Chloride 101 mmol/L (98-107); Estimated GFR 83.78 (mL/min/1.73m2); Glucose 99 mg/dL (74-106); Potassium 4.4 mmol/L (3.5-5.1); Sodium 138 mmol/L (136-145)
--- NOTE | 2023-01-18 22:00 | DI.CT_ITS ---
Exam(s) CT LOWER EXTREMITY RT WO EXAM: CT LOWER EXTREMITY RT WO CLINICAL HISTORY: Right foot pain. TECHNIQUE: Imaging Protocol: Axial computed tomography images with coronal and sagittal reformatted images were created and reviewed. CONTRAST MATERIAL: Noncontrast. COMPARISON: CR XR FOOT RT COMPLETE from 12/26/2022 FINDINGS: Exam is limited by motion artifact. Bones: No fractures identified. Enthesophyte at Achilles insertion on calcaneus. Degenerative changes with spurring and subchondral cyst formation in the intertarsal and tarsal metat arsal joints. No findings suspicious for osteomyelitis. Bones appear osteopenic. Soft Tissues: Diffuse soft tissue edema. IMPRESSION: Severe degenerative changes. No evidence fracture. Soft tissue swelling. RADIATION DOSE DELIVERED: 326.39mGy.cm Total DLP DATA REPOSITORY: All CT scans at this facility are submitted to the National Radiology Data Registry (NRDR) Dose Index Registry (DIR) with the [employer] ([employer]). RADIATION OPTIMIZATION: All CT scans at this facility use at least one of these dose optimization te chniques: automated exposure control; mA and/or kV adjustment per patient size (includes targeted exa ms where dose is matched to clinical indication); or iterative reconstruction.
[2023-01-18] MEDS: LORazepam 1 MG TAB PO (22:20)
[2023-01-18] MEDS: fentaNYL 100 MCG/2 ML VIAL 75 MCG IVP (22:20)
[2023-01-18] MEDS: HYDROmorphone 2 MG/ML SYR 0.5 MG IVP (23:34)
[2023-01-18] MEDS: Cyclobenzaprine 10 MG TAB PO (23:52)
[2023-01-19] VITALS (8 sets, daily range): BP systolic 94–133; BP diastolic 61–78; PULSE 60–64; RESP 1–18; TEMP 36.3–37; O2SAT 90–98
--- NOTE | 2023-01-19 00:16 | DI.VRAD_ITS ---
PROCEDURE INFORMATION: Exam: CT Right Lower Extremity Without Contrast, Foot Exam date and time: 01/18/2023 11:21 PM Age: 62 years old Clinical indication: Right; Patient HX: R foot pain, unable to bare weight TECHNIQUE: Imaging protocol: CT of the right lower extremity without contrast was performed. Exam focused on the foot. Radiation optimization: All CT scans at this facility use at least one of these dose optimization techniques: automated exposure control; mA and/or kV adjustment per patient size (includes targeted exams where dose is matched to clinical indication); or iterative reconstruction. COMPARISON: CR XR FOOT RT COMPLETE 12/26/2022 1:24 PM FINDINGS: Bones/joints: There are moderate to severe degenerative changes of the right foot with subchondral cystic changes consistent with osteoarthritis. There appears to be possible acute fracture of the calcaneus within the subtalar joint with small fragments present at the talocalcaneal joint. This finding is best demonstrated on image 40 series 6 and image 63 series 2. Tiny bony structure present at the level of the 3rd tarsal metatarsal joint best demonstrated on image 39 series 6 this likely represents chronic degenerative change. There are hammertoe deformities of the toes. Noninflamed enthesophyte seen within the region of the Achilles tendon. Soft tissues: There is extensive soft tissue swelling of distal right lower leg anterior and posterior foot. Other findings: Motion artifact does moderately limit the sensitivity of this examination. IMPRESSION: 1. There appears to be possible acute fracture of the calcaneus within the subtalar joint with small fragments present at the talocalcaneal joint. Is best demonstrated on image 40 series 6 and image 63 series 2. 2. There is extensive soft tissue swelling of distal right lower leg anterior and posterior foot. 3. There are moderate to severe degenerative changes of the right foot with subchondral cystic changes consistent with osteoarthritis. 4. Tiny bony structure present at the level of the 3rd tarsal metatarsal joint best demonstrated on image 39 series 6 this likely represents chronic degenerative change. Dictated and Authenticated by: Daniel Duran MD. Ordering:JORDI Quijano MD
[2023-01-19] MEDS: oxyCODONE 15 MG TAB PO (01:18)
--- NOTE | 2023-01-19 01:18 | HPE_ITS ---
Date of service: 01/19/23 Time of Service: 01:18 Assessment and Plan Assessment and plan (1) Acute pain of right foot: Status: Acute Assessment and plan: Foot pain. If calcaneal fracture is confirmed this would clearly account for the findings, though at the same time no mechanism of injury is evident. Will consult Podiatry, may need MRI or bone scan, and will maintain non-weight bearing in meantime along with prn analgesics (note that due to morbid obesity and overall deconditioning patient patently unable to navigate with crutches). Should fracture fail to be confirmed an alternative diagnosis might be plantar fasciitis, though the point of tenderness is not typical and the pain is more th an usually seen. Per prior notes remains Full Code History of Present Illness History of Present Illness Chief Complaint: foot pain Narrative: 62 female with h/o COPD, PE, AFlutter -- here with one month of right heel pain, without antecedent trauma. Pain has become progressively worse and today she feels it became acutely so and is unable to ambulate. In ER findings of note for unremarkable CBC and chemistries and CT of foot showing possible calcaneal fracture. Patient had been given Fentanyl earlier and was being given Oxycodone 15 at time of my visit. Continues unable to weight bear. Again denies trauma or fall from a height. Review of Systems Narrative: per HPI PFSH All Active Problems Unable to ambulate (Acute) Acute pain of right foot (Acute) Peripheral vascular disease (Chronic) Excoriation (skin-picking) disorder (Acute) Excoriation of multiple sites (Acute) Influenza A (Acute) COPD exacerbation (Acute) Respiratory failure with hypoxia (Acute) Open wound of both lower extremities (Acute) Influenza A (Acute) Tobacco use (Chronic) Obesity (Chronic) Pulmonary hypertension (Acute) Multiple rib fractures (Acute) Intractable pain (Acute) Sleep apnea (Acute) Ventricular hypertrophy determined by echocardiography (Chronic) Anxiety with depression (Acute) Cellulitis (Acute) Pulmonary embolism (Chronic) Fluid overload (Acute) Atrial flutter (Chronic) Medical History Anemia Asymptomatic varicose veins At risk for domestic abuse Benign neoplasm of uvula Bilateral leg pain Bradykinesia Cholelithiasis Depression Disequilibrium Dry mouth Dyspnea on exertion Exertional shortness of breath Foot callus Foot pain, right Generalized stiffness History of rectal bleeding Hx of atrial flutter Hx of thrombophlebitis Hx pulmonary embolism Hypoxemia Knee pain Loss of balance Lymphadenopathy Morbid obesity Myalgia Obstructive sleep apnea Opioid dependence Osteoarthritis Osteoarthritis of knee Osteoarthritis of knees, bilateral Plantar wart, left foot Reactive depression Resting tremor Right shoulder pain Sciatica Sciatica of left side Squamous papilloma of uvula Stiffness in joint Tremor Trichotillomania Unexplained falls Varicose veins of both lower extremities Venous insufficiency of right leg Venous stasis ulcer Vitamin D deficiency Weakness of right leg Surgical History (Reviewed 01/19/23 @ 01: by Edwin Gregorio MD) Colonoscopy - MAC (02/01/18) Hx of tubal ligation Social History (Reviewed 01/19/23 @ : by Edwin Gregorio MD) Smoking/Tobacco Use Status: Current every day Tobacco Type: cigarettes Smoking risk assessment performed?: Yes Alcohol Intake: former Drug use: Never Substance use type: does not use Do you feel safe at home: Yes Do you feel safe in your relationship?: Yes Meds Allergies and Home Medications Allergies Allergy/AdvReac Type Severity Reaction Status Date / Time bupropion [From Wellbutrin] AdvReac Intermediate Nausea Verified 01/18/23 22:45 Home Medications Medication Instructions Recorded Confirmed Type levothyroxine 75 mcg tablet 75 mcg PO DAILY 11/14/13 01/18/23 History pregabalin 100 mg capsule (Lyrica) 100 mg PO TID 01/08/18 01/18/23 History acetaminophen 500 mg capsule 1,000 mg PO TID 03/07/21 01/18/23 History (Mapap (acetaminophen)) cyclobenzaprine 10 mg tablet 10 mg PO BID 06/27/21 01/18/23 History omega 3-lub-nkt-fish oil 1,000 mg 1 cap PO DAILY 07/29/21 04/28/22 History (120 mg-180 mg) capsule (Fish Oil) sertraline 100 mg tablet 100 mg PO DAILY 04/28/22 01/18/23 History albuterol sulfate 90 mcg/actuation 180 mcg inhalation Q2H 05/21/22 01/18/23 History aerosol inhaler (Ventolin HFA) omeprazole 20 mg capsule,delayed 20 mg PO DAILY 05/21/22 01/18/23 History release oxycodone 10 mg tablet 15 mg PO QID PRN 05/21/22 01/18/23 History rivaroxaban 20 mg tablet (Xarelto) 20 mg PO DAILY 05/21/22 01/18/23 History magnesium chloride 64 mg 64 mg PO DAILY #30 tabs 05/27/22 01/18/23 Rx (magnesium chloride) tablet,delayed release (Mag 64) oxycodone 10 mg tablet 10 mg PO QID #0 tabs 05/27/22 Rx potassium chloride 20 mEq 20 meq PO DAILY #30 tabs 05/27/22 01/18/23 Rx tablet,extended release prednisone 20 mg tablet 40 mg PO DAILY #10 tabs 05/27/22 Rx ipratropium 0.5 mg-albuterol 3 mg 3 ml UPD QID #180 mL 05/28/22 01/18/23 Rx (2.5 mg base)/3 mL nebulization soln torsemide 20 mg tablet 20 mg PO DAILY #90 tabs 06/02/22 01/18/23 Rx prednisone 10 mg tablet See Rx Instructions .Route 06/04/22 Rx .COMPLEX #36 tabs metoprolol succinate 100 mg 100 mg PO BID #180 tabs 06/30/22 01/18/23 Rx tablet,extended release 24 hr buprenorphine 8 mg-naloxone 2 mg 2 film buccal DAILY 09/23/22 09/23/22 History sublingual film (Suboxone) fluconazole 200 mg tablet 200 mg PO DAILY #5 tabs 09/23/22 09/23/22 Rx (Diflucan) fluticasone fur. 100 mcg-umeclid 1 inh inhalation DAILY 09/23/22 01/18/23 History 62.5 mcg-vilant 25 mcg inhalat.powder (Trelegy Ellipta) Exam Narrative Exam Narrative: 133/77, 63, 36.5, 18, 98% RA. Weight 142 kg. HEENT atraumatic; neck supple; lungs diminished; heart distant, RRR; abdomen soft NT; extremities trace pedal edema bilateral; tenderness over right mid-heel just lateral to midline; neuro Ox3, lucid, moves all 4s Results Labs 01/18/23 21:21 01/18/23 21:21 Labs: Laboratory Results - last 24 hr 01/18/23 01/18/23 21:21 21:21 WBC 8.03 RBC 5.05 Hgb 14.9 Hct 45.6 MCV 90 MCH 29.5 MCHC 32.7 RDW 14.1 Plt Count 275 MPV 9.2 Immature Gran % 0.2 Neutrophils % 73.0 Lymphocytes % 18.7 Monocytes % 6.1 Eosinophils % 1.6 Basophils % 0.4 Nucleated RBC % 0.0 Absolute Neutrophils 5.86 Absolute Lymphocytes 1.50 Absolute Monocytes 0.49 Absolute Eosinophils 0.13 Absolute Basophils 0.03 Sodium 138 Potassium 4.4 Chloride 101 Carbon Dioxide 29.6 Anion Gap 7.4 BUN 9 Creatinine 0.8 Est GFR (CKD-EPI 2020) 83.78 Glucose 99 Calcium 9.6 Last Vital Signs Temp 36.5 C 01/18/23 20:45 Pulse 63 01/18/23 20:45 Resp 18 01/18/23 20:45 BP 133/77 01/18/23 20:45 Pulse Ox 98 01/18/23 20:45 Time Spent Time spent with Patient: 40-54 minutes Time was spent: preparing to see the patient(eg.review tests), obtaining and/or reviewing separately otained hiistory, ordering medications,tests, procedures, referring, communicating with other health healthcare sales representative and indepentently interpreting results
[2023-01-19] MEDS: Melatonin 3 MG TAB PO (01:19)
[2023-01-19] MEDS: oxyCODONE 10 MG TAB PO ×2 (04:13→08:53)
--- NOTE | 2023-01-19 06:00 | DI.US_ITS ---
Exam(s) US LOWER EXTREMITY VENOUS RT EXAM: US LOWER EXTREMITY VENOUS RT CLINICAL HISTORY: Right lower extremity pain. TECHNIQUE: Lower extremity venous ultrasound performed using grayscale, color-flow, and spectral Do ppler analysis. COMPARISON: CT CT LOWER EXTREMITY RT WO from 01/18/2023 FINDINGS: Exam is limited by the patient's body habitus. The patient did not tolerate the full extent of the e xam and the popliteal and posterior tibial veins are on the able to be imaged. The common femoral ve in through distal superficial femoral vein is well as profundus femoral and saphenous veins appear fr ee of thrombus. IMPRESSION: Limited exam. Popliteal and posterior tibial veins were not imaged. No evidence of DVT proximal to this level.. DATA REPOSITORY:
[2023-01-19] MEDS: Levothyroxine 75 MCG TAB PO (06:27)
--- NOTE | 2023-01-19 08:18 | RESPIRATORY ---
RT spoke with patient concerning history of sleep apne in chart, patient does not have a machine nor uses Oxygen for this.
--- NOTE | 2023-01-19 08:35 | INITIAL_ITS ---
Care Management Initial Assmt Initial Assessment REASON FOR HOSPITALIZATION:: foot pain PREVIOUS FUNCTIONAL STATUS/SOCIAL/FAMILY SUPPORTS:: Aparna lives in a mobile home in [place] with her , Wilner. She has a daughter Dali who lives in [place] and a son who lives in [place]. Aparna had another son who of a Fentanyl overdose 2 years ago. 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 Aparna is independent with her ADL's and does not receive any community services. She does use a cane and a walker for ambulatory assistance. CURRENT FUNCTIONAL STATUS:: Aparna was sitting up in a chair when CM met with her. Her daughter Dali was visiting and answered most of the questions posed by CM. Dali identified that Aparna is unable to ambulate at this time, even with a walker. She expressed concern about Aparna's ability to get up the stairs into her mobile home when she is discharged. CM assured her that a lift assist could be requested if needed. CM also explained that Aparna is in Observation status and would not qualify to use her Medicare benefit if she needed to go to rehab. As she also has Medicaid, there may not be an issue. At this time, Aparna is not interested in rehab. ADVANCE DIRECTIVES:: none on file Has patient been provided with info about the portal/API?: Yes Did the patient sign up for the portal?: Yes CODE STATUS:: Full Code INSURANCE COVERAGE / FINANCIAL ISSUES:: Medicare Medicaid CURRENT HOME/COMMUNITY SERVICES/EQUIPMENT:: cane and a walker PRIMARY CARE PHYSICIAN:: Storm Valencia POTENTIAL DISCHARGE NEEDS:: follow up appointment with PCP, possibly OP PT PATIENT/FAMILY EDUCATION NEEDS:: Review of discharge instructions, activity, limitations, follow up plan, discuss [employer] TRANSPORTATION:: via private vehicle with PLAN:: Anticipate Aparna will discharge home, possibly with new home health services for PT. She will follow up with her PCP and plan of care and transport with family. CM will follow and continue to assess for discharge concerns. PFSH All Active Problems (Updated 01/19/23 @ 12:35 by Joe Abraham MD) Ulcer of extremity due to chronic venous insufficiency (Acute) Varicose veins of left lower extremity with ulcer with fat layer exposed (Acute) Lymphedema (Acute) PAD (peripheral artery disease) (Acute) Venous insufficiency of both lower extremities (Acute) Nondisplaced intraarticular fracture of right calcaneus, initial encounter for closed fracture (Acute) Unable to ambulate (Acute) Acute pain of right foot (Acute) Peripheral vascular disease (Chronic) Excoriation (skin-picking) disorder (Acute) Excoriation of multiple sites (Acute) Influenza A (Acute) COPD exacerbation (Acute) Respiratory failure with hypoxia (Acute) Open wound of both lower extremities (Acute) Influenza A (Acute) Tobacco use (Chronic) Obesity (Chronic) Pulmonary hypertension (Acute) Multiple rib fractures (Acute) Intractable pain (Acute) Sleep apnea (Acute) Ventricular hypertrophy determined by echocardiography (Chronic) Anxiety with depression (Acute) Cellulitis (Acute) Pulmonary embolism (Chronic) Fluid overload (Acute) Atrial flutter (Chronic) Medical History Anemia Asymptomatic varicose veins At risk for domestic abuse Benign neoplasm of uvula Bilateral leg pain Bradykinesia Cholelithiasis Depression Disequilibrium Dry mouth Dyspnea on exertion Exertional shortness of breath Foot callus Foot pain, right Generalized stiffness History of rectal bleeding Hx of atrial flutter Hx of thrombophlebitis Hx pulmonary embolism Hypoxemia Knee pain Loss of balance Lymphadenopathy Morbid obesity Myalgia Obstructive sleep apnea Opioid dependence Osteoarthritis Osteoarthritis of knee Osteoarthritis of knees, bilateral Plantar wart, left foot Reactive depression Resting tremor Right shoulder pain Sciatica Sciatica of left side Squamous papilloma of uvula Stiffness in joint Tremor Trichotillomania Unexplained falls Varicose veins of both lower extremities Venous insufficiency of right leg Venous stasis ulcer Vitamin D deficiency Weakness of right leg Surgical History Colonoscopy - MAC (02/01/18) Hx of tubal ligation Social History Smoking/Tobacco Use Status: Current every day Tobacco Type: cigarettes Smoking risk assessment performed?: Yes Alcohol Intake: former Drug use: Never Substance use type: does not use Housing: house Do you feel safe at home: Yes Do you feel safe in your relationship?: Yes
[2023-01-19] MEDS: Albuterol/Ipratropium 3 ML UPD VIAL UPD (08:37)
[2023-01-19] MEDS: Rivaroxaban 10 MG TABLET 20 MG PO (08:53)
[2023-01-19] MEDS: Magnesium Chloride 64 MG TABCR PO (08:53)
[2023-01-19] MEDS: Potassium Chloride 20 MEQ TABCR PO (08:53)
[2023-01-19] MEDS: Omeprazole 20 MG CAPCR PO (08:53)
[2023-01-19] MEDS: Pregabalin 100 MG CAP PO ×3 (08:53→21:30)
[2023-01-19] MEDS: Torsemide 20 MG TAB PO (08:54)
[2023-01-19] MEDS: Sertraline 50 MG TAB 100 MG PO (09:02)
[2023-01-19] MEDS: Metoprolol CR 100 MG TABCR PO ×2 (09:03→21:29)
--- NOTE | 2023-01-19 09:20 | W.PODCONSULT ---
Date of service: 01/19/23 Time of Service: 09:20 Assessment and Plan Assessment and plan (1) Nondisplaced intraarticular fracture of right calcaneus, initial encounter for closed fracture: Status: Acute Assessment and plan: X-rays and CT scan were reviewed today. There is a nondisplaced intra-articular fracture to the right calcaneus. However patient does not report pain at this site at this time. I do recommend using a cam boot for ambulation. Will benefit from PT eval. Partial weightbearing to the right foot with only. No surgical intervention indicated or planned at this time. (2) Acute pain of right foot: Status: Acute Assessment and plan: As per medicine (3) Peripheral vascular disease: Status: Chronic Assessment and plan: Patient with cyanosis to both feet very likely secondary to venous congestion however arterial disease cannot be ruled out at this time as pulses are nonpalpable. I recommend arterial studies with CARMELLA TBI, PVR. May benefit from CT angio with runoff as CARMELLA will likely be unreliable. (4) Obesity: Status: Chronic Assessment and plan: As per medicine. (5) Venous insufficiency of both lower extremities: Status: Acute Assessment and plan: Recommend compression. (6) PAD (peripheral artery disease): Status: Acute Assessment and plan: See above (7) Lymphedema: Status: Acute Assessment and plan: Will benefit from lymphedema massage (8) Varicose veins of left lower extremity with ulcer with fat layer exposed: Status: Acute Assessment and plan: Patient has a full thickness ulcer to the left leg. I recommend woundcare consult. She will benefit from hydrofera blue and unna boot every other day. History of Present Illness History of Present Illness Chief Complaint: Right foot pain and inability to weightbear. Narrative: Patient was seen bedside today resting comfortably. Patient states she has had right foot pain now for about a month and has been unable to weightbear. She states initially she heard a pop on the foot while at home. Denies any obvious injury. Denies penetrating trauma. She localizes pain to the plantar lateral aspect of the foot and describes it as sharp. She also reports a long standing ulcer to the left leg which has dressings on. Denies recent infections to the ulcer. She states she goes to the wound care center in [place] for the left leg. They are applying unna boot dressings to the left lower extremity. Consults Consult date: 01/19/23 Requesting physician: Edwin Gregorio Review of Systems Constitutional Constitutional: Denies system reviewed and no additional complaints, except as documented Cardiovascular Cardiovascular: Reports pedal edema, Reports edema, Reports dyspnea and Reports dyspnea on exertion Respiratory Respiratory: Reports dyspnea and Reports dyspnea on exertion Musculoskeletal Comments: Right foot pain Integumentary/Breasts Skin/Breast: Reports dry skin and Reports skin ulcer (Left leg) PFSH All Active Problems (Updated 01/19/23 @ 09:39 by Damaris De Anda DPM) Varicose veins of left lower extremity with ulcer with fat layer exposed (Acute) Lymphedema (Acute) PAD (peripheral artery disease) (Acute) Venous insufficiency of both lower extremities (Acute) Nondisplaced intraarticular fracture of right calcaneus, initial encounter for closed fracture (Acute) Unable to ambulate (Acute) Acute pain of right foot (Acute) Peripheral vascular disease (Chronic) Excoriation (skin-picking) disorder (Acute) Excoriation of multiple sites (Acute) Influenza A (Acute) COPD exacerbation (Acute) Respiratory failure with hypoxia (Acute) Open wound of both lower extremities (Acute) Influenza A (Acute) Tobacco use (Chronic) Obesity (Chronic) Pulmonary hypertension (Acute) Multiple rib fractures (Acute) Intractable pain (Acute) Sleep apnea (Acute) Ventricular hypertrophy determined by echocardiography (Chronic) Anxiety with depression (Acute) Cellulitis (Acute) Pulmonary embolism (Chronic) Fluid overload (Acute) Atrial flutter (Chronic) Medical History Anemia Asymptomatic varicose veins At risk for domestic abuse Benign neoplasm of uvula Bilateral leg pain Bradykinesia Cholelithiasis Depression Disequilibrium Dry mouth Dyspnea on exertion Exertional shortness of breath Foot callus Foot pain, right Generalized stiffness History of rectal bleeding Hx of atrial flutter Hx of thrombophlebitis Hx pulmonary embolism Hypoxemia Knee pain Loss of balance Lymphadenopathy Morbid obesity Myalgia Obstructive sleep apnea Opioid dependence Osteoarthritis Osteoarthritis of knee Osteoarthritis of knees, bilateral Plantar wart, left foot Reactive depression Resting tremor Right shoulder pain Sciatica Sciatica of left side Squamous papilloma of uvula Stiffness in joint Tremor Trichotillomania Unexplained falls Varicose veins of both lower extremities Venous insufficiency of right leg Venous stasis ulcer Vitamin D deficiency Weakness of right leg Surgical History Colonoscopy - MAC (02/01/18) Hx of tubal ligation Social History Smoking/Tobacco Use Status: Current every day Tobacco Type: cigarettes Smoking risk assessment performed?: Yes Alcohol Intake: former Drug use: Never Substance use type: does not use Housing: house Do you feel safe at home: Yes Do you feel safe in your relationship?: Yes Exam Extrem Ankle/foot/toe images: 1. Pain to the plantar lateral right foot on weightbearing, ambulation and palpation. No open lesion or ulceration noted here. No evidence for foreign body. No erythema, no ulceration Other: Derm: Skin is dry cyanotic and flaking bilaterally. There is a full-thickness ulcer measuring approximately 3 cm x 3 cm noted posterior aspect of the left leg with 100% granular base, no periwound erythema no fluctuance no bogginess no drainage no malodor noted. Nails x10 are thickened elongated and discolored consistent with onychomycosis. No open lesion or ulceration, infection noted to the right foot. MSK: Muscle strength severely diminished likely secondary to deconditioning and morbid obesity, there is tenderness to palpation noted to the plantar lateral aspect of the right foot to the base of the fifth metatarsal no pain noted to the subtalar joint no pain noted to the ankle joint of the right foot. No pain noted to the left foot. Flat foor noted bilaterally.. Vascular: DP PT pulses are nonpalpable bilaterally. Likely secondary to her varicosities and telangiectasias noted bilaterally there is severe edema noted bilaterally. Cyanosis noted to the toes bilaterally. Hair growth is noted to be absent bilaterally. No calf pain noted bilaterally. Neuro: Light touch sensation noted to be intact bilaterally. Results Last Vital Signs Temp 98.4 F 01/19/23 08:46 Pulse 61 01/19/23 08:46 Resp 12 01/19/23 08:44 BP 122/78 01/19/23 08:46 Pulse Ox 97 01/19/23 08:46 Labs 01/18/23 21:21 01/18/23 21:21 Labs: Laboratory Results - last 24 hr 01/18/23 01/18/23 21:21 21:21 WBC 8.03 RBC 5.05 Hgb 14.9 Hct 45.6 MCV 90 MCH 29.5 MCHC 32.7 RDW 14.1 Plt Count 275 MPV 9.2 Immature Gran % 0.2 Neutrophils % 73.0 Lymphocytes % 18.7 Monocytes % 6.1 Eosinophils % 1.6 Basophils % 0.4 Nucleated RBC % 0.0 Absolute Neutrophils 5.86 Absolute Lymphocytes 1.50 Absolute Monocytes 0.49 Absolute Eosinophils 0.13 Absolute Basophils 0.03 Sodium 138 Potassium 4.4 Chloride 101 Carbon Dioxide 29.6 Anion Gap 7.4 BUN 9 Creatinine 0.8 Est GFR (CKD-EPI 2020) 83.78 Glucose 99 Calcium 9.6 Imaging Imaging Studies: Patient Name: Aparna Duarte Unit #: [id number] Loc: ER ? Ordering Provider:? Status: REG ER ? Primary Care Provider: Storm Valencia M.D. Date of Exam: 01/19/23 Sex: F ? : 1960 Age: 62 ? Exam(s) PROCEDURE INFORMATION: Exam: CT Right Lower Extremity Without Contrast, Foot Exam date and time: 01/18/2023 11:21 PM Age: 62 years old Clinical indication: Right; Patient HX: R foot pain, unable to bare weight TECHNIQUE: Imaging protocol: CT of the right lower extremity without contrast was performed. Exam focused on the foot. Radiation optimization: All CT scans at this facility use at least one of these dose optimization techniques: automated exposure control; mA and/or kV adjustment per patient size (includes targeted exams where dose is matched to clinical indication); or iterative reconstruction. COMPARISON: CR XR FOOT RT COMPLETE 12/26/2022 1:24 PM FINDINGS: Bones/joints: There are moderate to severe degenerative changes of the right foot with subchondral cystic changes consistent with osteoarthritis. There appears to be possible acute fracture of the calcaneus within the subtalar joint with small fragments present at the talocalcaneal joint. This finding is best demonstrated on image 40 series 6 and image 63 series 2. Tiny bony structure present at the level of the 3rd tarsal metatarsal joint best demonstrated on image 39 series 6 this likely represents chronic degenerative change. There are hammertoe deformities of the toes. Noninflamed enthesophyte seen within the region of the Achilles tendon. Soft tissues: There is extensive soft tissue swelling of distal right lower leg anterior and posterior foot. Other findings: Motion artifact does moderately limit the sensitivity of this examination. IMPRESSION: 1. ? There appears to be possible acute fracture of the calcaneus within the subtalar joint with small fragments present at the talocalcaneal joint. Is best demonstrated on image 40 series 6 and image 63 series 2. 2. ? There is extensive soft tissue swelling of distal right lower leg anterior and posterior foot. 3. ? There are moderate to severe degenerative changes of the right foot with subchondral cystic changes consistent with osteoarthritis. 4. ? Tiny bony structure present at the level of the 3rd tarsal metatarsal joint best demonstrated on image 39 series 6 this likely represents chronic degenerative change. Dictated and Authenticated by: Daniel Duran MD.
[2023-01-19] MEDS: Cyclobenzaprine 10 MG TAB PO ×2 (09:43→21:30)
[2023-01-19] MEDS: Budesonide/Formoterol 80/4.5 6.9 GM 60 PUFF INH IH ×2 (09:46→19:15)
[2023-01-19] MEDS: Tiotropium Bromide-Respimat 10 PUFF INH IH (09:46)
--- NOTE | 2023-01-19 12:20 | W.PM.PROGNOT ---
Date of Service Date of service: 01/19/23 Time of Service: 12:21 Assessment and Plan Assessment and plan (1) Nondisplaced intraarticular fracture of right calcaneus, initial encounter for closed fracture: Status: Acute Assessment and plan: Podiatry recommends cam boot for touch down weight bearing on right foot and P.T. and aortic angiogram w/ runoffs to both lower extremities to assess severity of her PAD. I have asked pharmacy to calculate MME dosing for fentanyl patch, I have changed her oxycodone to hydrocodone and have added valium for her muscle spasms. She is already on an SSRI and takes Lyrica. (2) PAD (peripheral artery disease): Status: Acute Assessment and plan: patient is already on xarelto for hx of PE. I have added low dose Aspirin although I have contemplated Pletal but Pletal has lot of interactions w/ her other medications. We will get aortogram w/ bilateral runoffs to her lower extremities. (3) Venous insufficiency of both lower extremities: Status: Acute Assessment and plan: secondary to morbid obesity and TYSON +/- OHS. Patient is chronically on diuretics to control her leg edema. Depending on severity of her PAD she may or may not be candidate for lymphedema pumps, at the least she should be prescribed compression stockings once her venous insufficiency ulcer has healed over which it appears to be mostly healed (4) Ulcer of extremity due to chronic venous insufficiency: Status: Acute Assessment and plan: left posterior calf. I will ask wound care nurse to evaluate and make recommendations. Subjective Subjective Interval history since last seen: Patient has had right foot pain x 1 month but presented to the ED w/ excruciating pain in the right foot (lateral forefoot) while walking to the bathroom. She does not recall any trauma to her foot when the pains began about one month ago. Workup last night included CT of her right foot/ankle which demonstrated right calcaneus fracture w/ fragment in the talocalcaneal joint space and soft tissue swelling. Dr. De Anda, podiatry saw the patient this morning and has recommended aortogram w/ bilateral runoffs to both legs to evaluate for PAD. Patient has known chronic venous stasis and has venous skin ulcer over left calf. Patient complains of lot of pain and muscle spasms and anxiety. She has been chronically on narcotic analgesics for chronic low back pain for DJD. She previously had been on fentanyl patch before going on suboxone however for past month w/ the right foot pain she has been back on oxycodone. Unfortunately the oxycodone is not working to control her pain. Exam Narrative Exam Narrative: Feet/legs: she has dependent rubor and cyanosis of her feet, pedal pulses are difficult to palpate but reportedly are present on doppler exam. Feet are cool. Right forefoot is swollen and she has tenderness along lateral forefoot proximally but really no pain on palpation over the posterior calcaneus Objective Last Vital Signs Temp 36.9 C 01/19/23 08:46 Pulse 61 01/19/23 08:46 Resp 12 01/19/23 08:44 BP 122/78 01/19/23 08:46 Pulse Ox 97 01/19/23 08:46 Laboratory Results - last 24 hr 01/18/23 01/18/23 21:21 21:21 WBC 8.03 RBC 5.05 Hgb 14.9 Hct 45.6 MCV 90 MCH 29.5 MCHC 32.7 RDW 14.1 Plt Count 275 MPV 9.2 Immature Gran % 0.2 Neutrophils % 73.0 Lymphocytes % 18.7 Monocytes % 6.1 Eosinophils % 1.6 Basophils % 0.4 Nucleated RBC % 0.0 Absolute Neutrophils 5.86 Absolute Lymphocytes 1.50 Absolute Monocytes 0.49 Absolute Eosinophils 0.13 Absolute Basophils 0.03 Sodium 138 Potassium 4.4 Chloride 101 Carbon Dioxide 29.6 Anion Gap 7.4 BUN 9 Creatinine 0.8 Est GFR (CKD-EPI 2020) 83.78 Glucose 99 Calcium 9.6 Time Spent with Patient Time Spent with Patient: 35-49 minutes Time was spent: preparing to see the patient(eg.review tests), obtaining and/or reviewing separately otained hiistory, ordering medications,tests, procedures, referring, communicating with other health animal care attendant, indepentently interpreting results, counseling the patient and care coordination
[2023-01-19] MEDS: Ketorolac 15 MG/ML VIAL IVP ×2 (12:22→18:26)
[2023-01-19] MEDS: Famotidine 20 MG TAB PO ×2 (12:22→21:30)
[2023-01-19] MEDS: oxyCODONE 5 MG TAB 15 MG PO (12:22)
[2023-01-19] MEDS: diazePAM 5 MG TAB PO (13:14)
[2023-01-19] MEDS: Aspirin 81 MG CHEW PO (13:14)
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
--- NOTE | 2023-01-19 16:40 | WOUNDCONS ---
- If Service Date Differs Date of service: 01/19/23 Time of Service: 15:30 Wound Initial Evaluation Narrative: Patient is a 62 YOF, she presents to the ED with a 4 week long period of increasing right heel pain, and decreasing ability to ambulate. She is admitted for management of the pain and and deconditioning. She also has a long standing Venous ulcer on her posterior left calf, that she is seen weekly for at [facility]. Patient has a lot of lower extremity pain, legs and feet are edenemous and discolored. Pulses could not be palpated on either foot. Using doppler pulses are strong and present on the right foot, present and weak on the left foot. Patient,s ambulatory status is discussed with her. She is informed, that she should see a vascular dr. I do mention this to the Hospitalist. Patient is due to have a lower extremity CTA this afternoon. In the meantime she consents to the consult. H&P, radiology, and other pertinent information were reviewed Body Four View: 1 - venous ulcer - Wound Left Lower Posterior Calf Wound Type: Statis Ulcer Wound General Appearance: Open to air, Reddened, Draining, Unapproximated Wound Bed Greatest Portion: Red (Granulation) Wound Bed Lesser Portion: Pale [place] Wound Surrounding Tissue Appearance: Purple, Edematous, Edematous-pitting Percent of Wound Bed Granulated/Red: 90 Wound Length: 2.5 cm Wound Width: 1.1 cm Wound Depth: 0.2 cm Wound Drainage Amount: Minimal Wound Drainage Odor: None/Absent Wound Drainage Description: Bloody, Sero Sanguineous Wound Topical Solution/Irrigant: Saline Irrigant Wound Debridement Method: Gauze Wound Debridement Result: Pt Unable to Tolerate Wound Debridement Amount of Tissue Removed: Minimal Additional Other Comments: Patient has a low tolerance for pain - Circulation, Sensation, Motion Edema Degree: 3+ Peripheral Pulse Strength: Absent Capillary Refill: Greater than 3 seconds Skin Temperature: Cold Skin Color: Other (rubar) - CARMELLA Comment:: unable to tolerate - Pain Pain Level: 7 Pain Scale Used: Visual Analog Scale 0-10 Pain Description: Burning Pain Duration/Frequency: Intermittent (with any palpation or movement) Patient who appears to have a vasular insuffiency. Test to be performed to rule out. dressing to apply light compression and manage drainage, plus elevation to be tried at this time - Photo Photo: - Treatment/Dressing Change Topicals/Ointments: None Cleanse With: Saline Dressing Types: Kerlix (Gauze Roll), Unna Boot Dressing Comment: light compression to both lower legs as tolerated - Nutrition Education Reviewed Nutrition Education: No - Recomendation Recomendation:: Wash leg with Normal Saline, then pat dry. Apply an Unna boot. Start from behind the toes and wrap with light compression to just below the knee. Avoid leaving any exposed areas of skin, and wrinkles in the dressing. Cover this with Kerlix to protect clothing and furniture. Change weekly or Prn. Encourage patient to elevate both legs as tolerated. Apply an shemar wrap to right leg, compression as tolerated. On during the day and off at HS, Wrap daily. Physcian/Nurse Practioner Notified: Yes (Dr. Abraham) Referrals: Other (Vascular) Treatment Time - Time Total Time Spent with Patient: 1 hour - Patient Will be Seen Weekly Treatment: 1x/wk - For: For:: 1 week
[2023-01-19] MEDS: diazePAM 2 MG TAB PO (19:24)
--- NOTE | 2023-01-19 19:26 | NUR.NOTE ---
Nursing Note: RN removed shemar bandage from Patient LUE.Fingers warm and pink.
--- NOTE | 2023-01-19 20:23 | DI.CT_ITS ---
Exam(s) CT ABD AORTA CTA W RUNOFF EXAM: CT ABD AORTA CTA W RUNOFF CLINICAL HISTORY: peripheral vascular ischemia. TECHNIQUE: Imaging Protocol: Axial CT angiography was performed with multi-slice acquisition and mu lti-planar and/or 3D reconstructions. CONTRAST MATERIAL: Intravenous: Omnipaque 350 Contrast volume:149 mL Oral: No COMPARISON: CT CT CHEST PE ABD PELVIS W from 04/21/[address] CHEST PE CTA from 05/26/2021 FINDINGS: Vascular Structures: Abdomen and pelvis: Celiac [place]/SMA: No evidence of occlusion or significant stenosis. Renal Arteries: No evidence of occlusion or significant stenosis. There is a single renal artery perf using each kidney. Aorta: No aneurysm, occlusion or significant stenosis. No dissection. 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 The right iliac arteries are unremarkable. Lower extremities: Right: Common Femoral: No evidence of occlusion or significant stenosis. Femoral popliteal arteries: No evidence of occlusion or significant stenosis. Knee Trifurcation: No evidence of occlusion or significant stenosis. Infrapopliteal arteries: No evidence of occlusion or significant stenosis. Left: Common Femoral: No evidence of occlusion or significant stenosis. Femoral popliteal arteries: No evidence of occlusion or significant stenosis. Knee Trifurcation: No evidence of occlusion or significant stenosis. Infrapopliteal arteries: No evidence of occlusion or significant stenosis. Soft Tissues: Lung bases: Scarring or atelectasis is seen in the lung bases. Liver: Normal density. No measurable mass. Gallbladder and biliary tract: Cholelithiasis. No biliary ductal dilatation. Pancreas: Normal density, no abnormal calcifications or inflammatory process. Spleen: Normal. Kidneys: Normal size, contour and axis. No radiodense stones or obstructive uropathy. No masses seen. Adrenal glands: Stable bilateral adrenal nodules. Aorta: Abdominal portion non-dilated. Bladder: Symmetric distention, no gross wall thickening. Bowel: No obstruction or bowel wall thickening. No evidence of appendicitis. Peritoneal cavity: No ascites, collection or mesenteric inflammatory response. No free air. Bones: Within normal limits for the patient's age. Degenerative changes are seen in the knees bilate rally. IMPRESSION: 1. No significant arterial stenosis or occlusion. 2. Cholelithiasis. No biliary ductal dilatation. RADIATION DOSE DELIVERED: 2,827.3mGy.cm Total DLP 2,827.3mGy.cm Total DLP DATA REPOSITORY: All CT scans at this facility are submitted to the National Radiology Data Registry (NRDR) Dose Index Registry (DIR) with the [employer] (ACR). RADIATION OPTIMIZATION: All CT scans at this facility use at least one of these dose optimization te chniques: automated exposure control; mA and/or kV adjustment per patient size (includes targeted exa ms where dose is matched to clinical indication); or iterative reconstruction.
[2023-01-19] MEDS: Omnipaque 350 MG/ML 100 ML BTL IJ (20:28)
[2023-01-19] MEDS: Omnipaque 350 MG/ML 50 ML BTL IJ (20:39)
[2023-01-19] MEDS: Normal Saline Flush 10 ML SYR IVP (20:52)
[2023-01-19] MEDS: Melatonin 3 MG TAB 6 MG PO (21:29)
[2023-01-19] MEDS: Acetaminophen 325 MG TAB 650 MG PO (21:29)
[2023-01-19] MEDS: fentaNYL 25 MCG PATCH TD (21:30)
--- NOTE | 2023-01-19 21:31 | DI.VRAD_ITS ---
PROCEDURE INFORMATION: Exam: CTA Abdominal Aorta and Bilateral Lower Extremities (Run-off) With Contrast Exam date and time: 01/19/2023 8:32 PM Age: 62 years old Clinical indication: Ischemia, Peripheral vascular disease TECHNIQUE: Imaging protocol: Computed tomographic angiography of the of the abdominal aorta, pelvis and bilateral lower extremities with contrast. 3D rendering (Not supervised by radiologist): MIP and/or 3D reconstructed images were created by the technologist. Radiation optimization: All CT scans at this facility use at least one of these dose optimization techniques: automated exposure control; mA and/or kV adjustment per patient size (includes targeted exams where dose is matched to clinical indication); or iterative reconstruction. Contrast material: OMNI 350; Contrast volume: 150 ml; Contrast route: INTRAVENOUS (IV); COMPARISON: CT CHEST PE ABD PELVIS W 04/21/2020 10:16 AM FINDINGS: Aorta: The abdominal aorta is normal in caliber without aneurysm or dissection. Celiac trunk and mesenteric arteries: No occlusion or significant stenosis. Renal arteries: No occlusion or significant stenosis. Right iliac arteries: Patent right iliac arteries without stenosis or occlusion. Right femoral/popliteal arteries: No occlusion or significant stenosis. Right infrapopliteal arteries: No occlusion or significant stenosis. Left iliac arteries: Patent left iliac arteries. 2.1 cm aneurysmal dilatation of the distal left common iliac artery. Left femoral/popliteal arteries: No occlusion or significant stenosis. Left infrapopliteal arteries: No occlusion or significant stenosis. Veins: Bilateral lower extremity venous varicosities. Lungs: Bibasilar linear parenchymal scarring or subsegmental collapse / atelectasis. Liver: No mass. Gallbladder and bile ducts: Cholelithiasis, otherwise normal gallbladder. No biliary tract dilatation. Pancreas: Unremarkable. No mass. No ductal dilation. Spleen: Normal. No splenomegaly. Adrenal glands: Compared to 04/21/2020, bilateral adrenal stable benign adenomas. No follow-up imaging is recommended. Kidneys and ureters: Normal. No mass. Stomach and bowel: No generalized ileus or bowel obstruction. Moderate amount of stool throughout the colon. Appendix: No evidence of appendicitis. Urinary bladder: Unremarkable. No mass. Reproductive: Uterus and ovaries within normal limits for patient age. Intraperitoneal space: No free air. No significant fluid collection. Lymph nodes: No lymphadenopathy. Bones/joints: Bilateral knee degenerative changes. Spinal degenerative changes. Soft tissues: Intramuscular lipoma within the lower right gastrocnemius musculature. Bilateral Luo's cysts. IMPRESSION: 1. No definite significant arterial stenosis or occlusion. 2. Cholelithiasis, otherwise normal gallbladder. No biliary tract dilatation. Dictated and Authenticated by: Washington Patel MD. Ordering:.[facility] Jarad Diza MD
[2023-01-20 00:09] VITALS: O2SAT 93
[2023-01-20] MEDS: Levothyroxine 75 MCG TAB PO (06:23)
[2023-01-20] MEDS: Omeprazole 20 MG CAPCR PO (06:23)
[2023-01-20 07:17] VITALS: BP 101/56; PULSE 59; TEMP 36.1; O2SAT 94
[2023-01-20] MEDS: Magnesium Chloride 64 MG TABCR PO (08:10)
[2023-01-20] MEDS: Potassium Chloride 20 MEQ TABCR PO (08:11)
[2023-01-20] MEDS: Rivaroxaban 10 MG TABLET 20 MG PO (08:11)
[2023-01-20] MEDS: Cyclobenzaprine 10 MG TAB PO (08:11)
[2023-01-20] MEDS: Famotidine 20 MG TAB PO (08:11)
[2023-01-20] MEDS: Pregabalin 100 MG CAP PO ×2 (08:11→15:20)
[2023-01-20] MEDS: Sertraline 50 MG TAB 100 MG PO (08:11)
[2023-01-20] MEDS: Aspirin 81 MG CHEW PO (08:11)
[2023-01-20] MEDS: Torsemide 20 MG TAB PO (08:11)
[2023-01-20] MEDS: Ketorolac 15 MG/ML VIAL IVP (08:26)
[2023-01-20] MEDS: Normal Saline Flush 10 ML SYR IVP ×2 (08:26→09:42)
[2023-01-20] MEDS: Tiotropium Bromide-Respimat 10 PUFF INH IH (08:37)
[2023-01-20] MEDS: Budesonide/Formoterol 80/4.5 6.9 GM 60 PUFF INH IH (08:38)
--- NOTE | 2023-01-20 08:40 | PDOC.CMPRO ---
Date of service: 01/20/23 Time of Service: 08:40 Care Management Progress Note Progress Note Text Progress Note Text: S/O:Aparna was sitting up in bed when CM met with her. She was in good spirits and stated that she is having much less pain today. Aparna and her daughter Dali had questions about the calcaneal fracture as well as the results of the CTA that was done yesterday. They were also unsure if Aparna was to be discharged today or tomorrow. CM relayed the requests for information to the provider. Aparna did much better with PT today. She was able to ambulate with her boot on but has concerns about her ability to do stairs to enter the mobile home. Per Aparna and Dali, she worked on stairs with PT and did well. If requested, CM will coordinate a lift assist when she is discharged home or, if they prefer, they can call for assistance themselves if they get home and are unable to manage. A:Aparna is a 62 year old woman admitted om 01/19/23 with foot pain P:Anticipate Aparna will discharge home, possibly with new home health services for PT. She will follow up with her PCP and plan of care and transport with family. CM will follow and continue to assess for discharge concerns.
--- NOTE | 2023-01-20 09:31 | W.PM.PROGNOT ---
Date of Service Date of service: 01/20/23 Time of Service: 09:31 Assessment and Plan Assessment and plan (1) Nondisplaced intraarticular fracture of right calcaneus, initial encounter for closed fracture: Status: Acute Assessment and plan: Patient to wear her cam walking boot and use walker. She is on fentanyl 25 mcg patch and has prn hydromorphone (oxycodone was nor working to control her pain). She also is getting ketorolac although nursing home NSAID use probably is not good idea given her anticoagulant use. Depending on how she does for P.T. today, if she is able to ambulate w/out excruciating pain, then she could go home this afternoon on the combo of fentanyl patch, hydromorphone (2) PAD (peripheral artery disease): Status: Acute Assessment and plan: patient is on Xarelto nursing home for hx of PE. I added low dose aspirin to treat her PAD. Her CTA of her aorta w/ bilateral lower extremities runoff did not show any occlusion of her major vessels. 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 her celiac, SMA and MERCEDES and renals were also patent. (3) Venous insufficiency of both lower extremities: Status: Acute Assessment and plan: secondary to morbid obesity and TYSON +/- OHS. Patient is chronically on diuretics to control her leg edema. Depending on severity of her PAD she may or may not be candidate for lymphedema pumps, at the least she should be prescribed compression stockings once her venous insufficiency ulcer has healed over which it appears to be mostly healed (4) Ulcer of extremity due to chronic venous insufficiency: Status: Acute Assessment and plan: wound care nurse spoke w/ me yesterday. He recommended use of CHAPIN wraps to help control her edema. I will have patient follow up in wound care clinic or podiatry upon discharge. (5) Discharge planning issues: Status: Acute Assessment and plan: patient will be dc home w/ home health services including nursing and P.T. Subjective Subjective Interval history since last seen: Patient had her CTA aortogram w/ bilateral LE runoffs. No major occlusions were seen in her LE vessels. 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 Patient's left midline catheter is leaking and having bleeding from the site. I asked nursing to assess patency and whether or not it flushes. If it is no longer patent then I will have them remove the catheter. Patient states that her pain in her right foot is better today. Patient was started on Fentanyl patch yesterday. Exam Narrative Exam Narrative: Aparna was seen sitting up at the bedside just having washed up after breakfast. She is not in any pain Left arm midline site has some oozing of blood around the catheter insertion site but not heavily bleeding. Line flushed and josué back well per her nurse. There is no swelling of the arm. no pain w/ flushing of the catheter Lungs: clear Heart: regular but bradycardic, no appreciable murmur Abdomen: obese, soft, nontender Legs/feet: edematous, both legs are now wrapped. right w/ CHAPIN wrap, toes have dependent rubor and cyanosis Objective Last Vital Signs Temp 36.1 C L 01/20/23 07:17 Pulse 59 L 01/20/23 07:17 Resp 18 01/19/23 23:06 BP 101/56 L 01/20/23 07:17 Pulse Ox 94 01/20/23 07:17 Time Spent with Patient Time Spent with Patient: 35-49 minutes Time was spent: preparing to see the patient(eg.review tests), ordering medications,tests, procedures, referring, communicating with other health acute care occupational therapist, indepentently interpreting results, counseling the patient and care coordination
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
[2023-01-20] MEDS: Nystatin POWDER 60 GM JAR TP (15:20)
[2023-01-20 15:22] VITALS: BP 114/74; PULSE 80; TEMP 36.2; O2SAT 99
--- NOTE | 2023-01-20 16:55 | PDOC.HHF2F_ITS ---
Home Health Referral Home Health Orders Clinical synopsis of why skilled professionals are needed: Severe right foot pain d/t calcaneal fracture. Patient requires home P.T. to improve her ambulatory function and her ADL performance. Wound care nurse to address her chronic venous insufficiency skin wounds Medical diagnosis necessitation home health referral: Right foot calcaneus fracture w/ bone fragment in talocalcaneal space Registered Nurse: Check all that apply Instruct on new or changed medication(s)/assess compliance: Ordered Assess for exacerbation of medical condition, instruct patient/caregivers on signs and symptoms to report for early detection: Ordered Physical Therapist: Check all that apply Increase strength & endurance for safe mobility at home: Ordered To design/establish home maintenance program: Ordered Fall reduction therapy program for patient with history of frequent falls: Ordered Home safety evaluation and teaching/gait training including stair management (if applicable): Ordered Embedded Firmware Developer: Assist with community resources: Ordered Assist with [facility] care planning: Ordered Home Bound Status Describe why leaving home would require a considerable and taxing effort: Side effects from pain medication (sedation/drowsiness), Requires frequent rest periods and Safety Concerns: describe (increase risk of falls d/t weakness, gait instability, obesity and foot fracture) Encounter Date and Reason: I certify that a FTF encounter for this patient was performed on January 20, 2023 and that such encounter was related to the primary reason the patient requires home health services. The encounter was conducted in the following manner: * By me as the certifying physician, ACTIVITIES MANAGER, PA or * By an inpatient physician, ACTIVITIES MANAGER or PA during an inpatient stay who communicated findings to me, Certification And Authentication I certify that I composed the above information based on my clinical judgment relating to this patient's medical condition and, if applicable, clinical findings communicated to me by the NPP or inpatient physician who performed the FTF encounter. Name of Provider that will be monitoring home health services: Storm Valencia
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
[2023-01-20] MEDS: Bacitracin 1 PACKET TP (17:18)
--- NOTE | 2023-01-21 10:28 | INDS_ITS ---
PT Notes Visit Reasons: Foot Pain Physical Therapy Inpatient Discharge Summary Treatment Dates: 01/19/2023 - 01/20/23 Referring Doctor: Joe Abraham MD PT Orders: PT CONSULT: Fall safety assessment. Patient poor ambulatory d/t right calcaneal fracture Precautions: Fall. Standard. TDWB on the R LE with fracture boot using FWW per general assembler installer. This document serves as a summary of care. No PT services were provided on this date. Patient Profile/Admitting Diagnosis: Patient is a 62-year-old female patient who presented to the ED with diagnoses of non-displaced intra-articular fracture of the right calcaneus and is on fracture boot ordered at TDWB on the R LE with AD by the general assembler installer, peripheral airway disease, venous insufficiency of B LE, and ulcer of extremity due to chroninc venous insufficiency. She participated in 2 PT sessions with improvements in functional mobility sufficient to allow for safe return home with family support and HH PT. Social History/Home Situation: Lives with in a private home. Occasionally used a cane and a walker for ambulation due to worsening swelling in B LE. Had been independent with all aspects of ADLs prior to admission. Equipment Owned/DME: SPC, FWW Subjective: none obtained Objective: ROM: Right Upper Extremity: Shoulder Flexion WFL. Shoulder abduction WFL. Elbow flexion WFL. Wrist flexion WFL. Functional opening and closing of hand WFL. Left Upper Extremity: Shoulder Flexion WFL. Shoulder abduction WFL. Elbow flexion WFL. Wrist flexion WFL. Functional opening and closing of hand WFL. Right Lower Extremity: Hip flexion lacks the last 50% of AROM. Hip abduction lacks the last 50% of AROM. Knee flexion 10 degrees to 90 degrees. Knee extension -10 degrees. Ankle dorsiflexion to neutral only. Ankle plantarflexion WFL. Left Lower Extremity: Hip flexion lacks the last 50% of AROM. Hip abduction lacks the last 50% of AROM. Knee flexion 10 degrees to 90 degrees. Knee extension -10 degrees. Ankle dorsiflexion to neutral only. Ankle plantarflexion WFL. Strength: Right Upper Extremity: Shoulder flexors 4-/5. Shoulder abductors 4-/5. Elbow flexors 4-/5. Elbow extensors 4-/5. Mold Sheet Cleaner strong. Left Upper Extremity: Shoulder flexors 4-/5. Shoulder abductors 4-/5. Elbow flexors 4-/5. Elbow extensors 4-/5. Mold Sheet Cleaner strong. Right Lower Extremity: Hip flexors 3-/5. Hip abductors 3-/5. Knee flexors 4-/5. Knee extensors 3-/5. Ankle dorsiflexors 3-/5. Ankle plantarflexors 4-/5. Left Lower Extremity: Hip flexors 3-/5. Hip abductors 3-/5. Knee flexors 4-/5. Knee extensors 3-/5. Ankle dorsiflexors 3-/5. Ankle plantarflexors 4-/5. BED MOBILITY/TRANSFERS? Rolling L/R: Independent Supine-sit: Independent? Sit-supine: Independent ? Sit-stand: CGA? Stand-sit: CGA ? Bed-Chair: CGA with max verbal and tactile cues to maintain WB status ? Chair-bed: CGA with max verbal and tactile cues to maintain WB status ? GAIT? Assistive Device: FWW? Weight bearing: TDWB LLE Assist: max tactile cueing (this therapist put patient's left foot in boot on the therapist's foot to cue patient not to put weight through it. This was only effective while patient's foot was on therapist's foot.) ? Distance:? 10 feet x3 with seated rests between.? STAIRS: Patient ascends and descends 3 four inch stairs and 2 six inch stairs with min assist, bilateral railings, and in accordance with her TDWB status to the best of her ability.? Balance: Static Sitting: Normal Dynamic Sitting: Normal Static Standing: Fair Dynamic Standing: Fair ASSESSMENT: TDWB on the R LE with fracture boot on the R side. Will need to use WBAT to ensure WB on the R LE precaution per general assembler installer. 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 She participated in 2 PT sessions for gait training and strengthening, and demonstrated mobility sufficient to allow for safe return home with family support and PT. Goals: Goals X1 week 1. Supine-Sit independent (MET) 2. Sit-Supine independent(MET) 3. Sit-Stand independent(PROGRESSING TOWARD) 4. Stand-Sit independent with FWW (PROGRESSING TOWARD) 5. Bed-Chair independent with FWW (PROGRESSING TOWARD) 6. Chair-Bed independent with FWW (PROGRESSING TOWARD) 7. Independent gait on level surface with use of FWW for at least 50 feet without report of pain nor dyspnea with fracture boot (PROGRESSING TOWARD) 8. Independent stair negotiation while holding onto B rails for at least 5 steps without report of pain nor dyspnea (PROGRESSING TOWARD) 9. Independent with home exercise program (PROGRESSING TOWARD) 10. Good static and dynamic standing balance/tolerance (PROGRESSING TOWARD) Plan of Care/Treatment Plan: D/C from PT services in acute care setting DISCHARGE RECOMMENDATIONS: Home with PT TREATMENT CODE/TIME: none Thank you for the opportunity to participate in the care of this patient. Damaris Huerta, PT, DPT [facility] [place], [place]
== END 2023-01-20 17:52 | disposition home health service (06) ==
LOC: ER 01-19 02:08 → MS 01-19 02:10
PROVIDERS: Admitting Provider General Practice; Emergency Provider Emergency Medicine; PCP Internal Medicine; Visit Provider General Practice
DX: S92.064A Nondisplaced intraarticular fracture of right calcaneus, initial encounter for closed fracture; I73.9 Peripheral vascular disease, unspecified; E66.9 Obesity, unspecified; Z68.43 Body mass index [BMI] 50.0-59.9, adult; I89.0 Lymphedema, not elsewhere classified; F42.4 Excoriation (skin-picking) disorder; Z79.899 Other long term (current) drug therapy; Z79.01 Long term (current) use of anticoagulants; F17.210 Nicotine dependence, cigarettes, uncomplicated; F41.9 Anxiety disorder, unspecified; R26.2 Difficulty in walking, not elsewhere classified; J44.9 Chronic obstructive pulmonary disease, unspecified; G47.30 Sleep apnea, unspecified; I27.20 Pulmonary hypertension, unspecified; Z86.711 Personal history of pulmonary embolism; F32.A Depression, unspecified; I48.92 Unspecified atrial flutter; D64.9 Anemia, unspecified; I83.229 Varicose veins of left lower extremity with both ulcer of unspecified site and inflammation; L97.922 Non-pressure chronic ulcer of unspecified part of left lower leg with fat layer exposed; I72.3 Aneurysm of iliac artery; X58.XXXA Exposure to other specified factors, initial encounter
CPT/HCPCS: 75635; 80048; 93971; 94640; 96374; 96375; 97116; 97162; 97530; 99285; 73700; 85025; 94664; 94760; 99221; 99239; G0378; J1170; J1885; J3010; J3490; J7620; Q9967

== ENCOUNTER 2023-02-19 11:00 | Emergency (ER) | payer MEDICARE, MEDICAID, SELFPAY ==
[2023-02-19 11:04] VITALS: BP 119/74; PULSE 77; RESP 20; TEMP 36.7; O2SAT 94
[2023-02-19 11:49] VITALS: BP 132/74; PULSE 69; RESP 18; O2SAT 95
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
--- NOTE | 2023-02-19 12:57 | DI.RAD_ITS ---
Exam(s) XR KNEE RT 4V AP,LAT,TIMOTHY,PAT EXAM: XR KNEE RT 4V AP,LAT,TIMOTHY,PAT CLINICAL HISTORY: pain, fall with ant trauma. TECHNIQUE: 2D digital imaging was performed. COMPARISON: CR XR KNEE LT 3V AP,LAT,TIMOTHY from 11/29/2019 FINDINGS: Four views: Anterior soft tissue swelling noted. No evidence of acute fracture. No obvious joint effusion. There are advanced degenerative changes in the medial compartment. [id number] narrowing on the casandra ght-bearing view. Marginal osteophytes. Moderate degenerative changes noted in the lateral compartm ent. Moderate degenerative changes in the patellofemoral compartment. IMPRESSION: Degenerative changes. No obvious fractures DATA REPOSITORY: RADIATION DOSE DELIVERED:
== END 2023-02-19 13:32 | disposition home or self-care (01) ==
PROVIDERS: Emergency Provider Student in an Organized Health Care Education/Training Program; PCP Internal Medicine
DX: S80.01XA Contusion of right knee, initial encounter (principal); W01.0XXA Fall on same level from slipping, tripping and stumbling without subsequent striking against object, initial encounter
CPT/HCPCS: 99283; 73564

== ENCOUNTER 2023-08-27 15:04 | Outpatient (REF) | payer MEDICARE, MEDICAID, SELFPAY ==
[2023-08-27 15:25] LABS: HCT 44.6 % (36.0-46.0); HGB 15.3 g/dL (11.2-15.7); MCHC 34.3 % (32.0-36.0); MCV 91 fL (80-95); MPV 9.8 fL (8.0-11.0); Platelet Count 277 10^3/uL (130-400); RBC 4.93 10^6/uL (3.93-5.22); RDW 14.4 % (11.7-14.6); RDW-SD 48.1 fL; WBC 5.62 10^3/uL (4.4-10.8)
[2023-08-27 15:40] LABS: ALT 19 U/L (14-59); AST 16 U/L (15-37); Albumin 3.5 g/dL (3.4-5.0); Alkaline Phosphatase 99 U/L (46-116); Anion Gap 8.7 mmol/L (3-11); BUN 11 mg/dL (7-18); Bilirubin, Total 0.5 mg/dL (0.2-1.0); CO2 31.3 mmol/L (21.0-32.0); CREATININE 0.7 mg/dL (0.55-1.02); Calcium 9.1 mg/dL (8.5-10.1); Calculated LDL 97 mg/dL (<100); Chloride 102 mmol/L (98-107); Cholesterol 166 mg/dL (<200); Estimated GFR 98.34 (mL/min/1.73m2); Ferritin 57 ng/mL (8-252); Glucose 84 mg/dL (74-106); HDL Cholesterol 55 mg/dL (40-60); Potassium 4.2 mmol/L (3.5-5.1); Sodium 142 mmol/L (136-145); Total Protein 7.6 g/dL (6.4-8.2); Triglyceride 73 mg/dL (<150)
[2023-08-27 16:18] LABS: Vitamin D 25 Total 21.2 ng/mL (30-100)
[2023-08-27 16:34] LABS: Iron 63 ug/dL (50-170); Total Iron Binding Capacity 342 ug/dL (250-450); Transferrin Sat 18 % (15-50)
== END 2023-08-27 15:05 | disposition home or self-care (01) ==
LOC: NCHCN 15:04
PROVIDERS: PCP Internal Medicine; Visit Provider Nurse Practitioner Family
DX: E03.9 Hypothyroidism, unspecified (principal); D64.9 Anemia, unspecified
CPT/HCPCS: 80053; 80061; 82306; 85027; 82728; 83540; 83550; 84443

== ENCOUNTER 2023-11-05 19:44 | Outpatient (REF) | payer MEDICARE, MEDICAID, SELFPAY ==
[2023-11-05 21:13] LABS: Abs Immature Grans 0.02 10^3/uL (0.0-0.06); Absolute Basophil Count 0.04 10^3/uL (0.0-0.2); Absolute Eosinophil Count 0.19 10^3/uL (0.0-0.7); Absolute Lymphocyte Count 1.22 10^3/uL (1.2-3.4); Absolute Monocyte Count 0.41 10^3/uL (0.1-0.8); Absolute Neutrophil Count 3.83 10^3/uL (1.2-6.7); Basophils % 0.7 %; Eosinophils % 3.3 %; HCT 45.6 % (36.0-46.0); HGB 14.8 g/dL (11.2-15.7); Immature Grans % 0.4 %; Lymphocytes % 21.4 %; MCHC 32.5 % (32.0-36.0); MCV 96 fL (80-95); MPV 9.6 fL (8.0-11.0); Monocytes % 7.2 %; Platelet Count 247 10^3/uL (130-400); RBC 4.77 10^6/uL (3.93-5.22); RDW 13.9 % (11.7-14.6); RDW-SD 49.2 fL; WBC 5.71 10^3/uL (4.4-10.8)
[2023-11-05 21:35] LABS: ALT 20 U/L (14-59); AST 17 U/L (15-37); Albumin 3.5 g/dL (3.4-5.0); Alkaline Phosphatase 109 U/L (46-116); Anion Gap 4.8 mmol/L (3-11); BUN 10 mg/dL (7-18); Bilirubin, Total 0.5 mg/dL (0.2-1.0); CO2 33.2 mmol/L (21.0-32.0); CREATININE 0.7 mg/dL (0.55-1.02); Chloride 100 mmol/L (98-107); Estimated GFR 98.34 (mL/min/1.73m2); Glucose 96 mg/dL (74-106); NT-proBNP 121 pg/mL (<300); Potassium 3.7 mmol/L (3.5-5.1); Sodium 138 mmol/L (136-145); TSH (W/Ref FT4) 3.51 uIU/mL (0.36-3.74); Total Protein 7.5 g/dL (6.4-8.2)
== END 2023-11-05 19:45 | disposition home or self-care (01) ==
LOC: NCHCN 19:44
PROVIDERS: PCP Nurse Practitioner Family; Visit Provider Nurse Practitioner Family
DX: E66.9 Obesity, unspecified (principal)
CPT/HCPCS: 80053; 83880; 84443; 85025

== ENCOUNTER → 2023-11-23 02:51 | Outpatient (CLI) | payer MEDICARE, MEDICAID, SELFPAY ==
--- NOTE | 2023-11-23 09:59 | DI.RAD_ITS ---
Exam(s) XR CHEST 2V PA LATERAL EXAM: XR CHEST 2V PA LATERAL CLINICAL HISTORY: DYSPNEA,R06.00. TECHNIQUE: 2D digital imaging was performed. COMPARISON: CR,XR XR CHEST 2V PA LATERAL from 06/04/2022 FINDINGS: 2 views: Heart size is normal. The mediastinum is not widened. Subsegmental platelike atelectasis is again noted in the lingular segment left lung. There is also n ow platelike atelectasis in the anterior aspect of the right middle lobe, not previously present. Th ere are no confluent infiltrates and there are no pleural effusions. No pulmonary edema. IMPRESSION: New platelike atelectasis in the right middle lobe. Stable platelike atelectasis in the lingular segment of the left lung. DATA REPOSITORY: RADIATION DOSE DELIVERED:
== END ==
PROVIDERS: PCP Nurse Practitioner Family; Visit Provider Nurse Practitioner Family
DX: R06.09 Other forms of dyspnea (principal); J98.11 Atelectasis
CPT/HCPCS: 71046

== ENCOUNTER → 2023-12-31 01:36 | Outpatient (CLI) | payer MEDICARE, MEDICAID, SELFPAY ==
--- OUTSIDE RECORDS SUMMARY | 2023-12-28 02:23 | XMS_ITS | Encounter Summary ---
Author Organization [facility] Address [address] [place] [address] Care Team Providers Care Can Handler Name Role Phone Storm Valencia MD Primary Care Provider [phone] Encounter Details Date Type Department Care Team (Late st Contact Info) Description 03/29/2020 Lab Requisition [facility]ology [facility] Laboratory Medicine - [address] [address] Outr Resulting Lab, Provider Social History Tobacco Use Types Packs/Day Years Used Date Smoking Tobacco: Never Assessed Interpersonal Safety Answer Date Record ed Physically Hurt Never 01/15/2020 Verbally Threaten Not on file 01/15/2020 Sex and Gender Information Value Date Recorded Sex Assigned at Not on file Gender Identity Not on file Sexual Orientation Not on file documented as of this encounter Plan of Treatment Not on file documented as of this encounter Procedures Procedure Name Priority Date/Time Associated Diagnosis Comments ZZCOVID-19 TEST [facility] PCR Today 03/29/2020 18:10 EDT COVID-19 TESTING Routine 03/29/2020 18:1 0 EDT documented in this encounter Results * COVID-19 TEST [facility] PCR (03/29/2020 18:10 EDT) Swab ENTIRE NASOPHARYNX / Unknown 03/29/2020 18:10 EDT 03/29/2020 20:41 EDT Provider Outr Resulting Lab MICROBIOLOGY - GENERAL ORDERABLES [facility] [address] [place] [address] * COVID-19 TESTING (03/29/2020 18:10 EDT) COVID-19 rt-PCR Result Negative Negative 03/30/2020 0:37 EDT [facility] Comment: This test has not been FDA cleared or approved. This test has been authorized by FDA under an EUA for use by authorized laboratories. This test has been authorized only for detection of nucleic acid from 2019-nCoV, not for any other viruses or pathogens. This test is only authorized for the duration of the declaration that circumstances exist justifying the authorization of emergency use of in vitro diagnostic tests for detection and/or diagnosis of 2019-nCoV under section 564(b)(1) of Act, 21 U.S.C ?? 360bbb-3(b) (1), unless the authorization is terminated or revoked sooner. Negative results do not preclude 2019-nCoV infection and should not be used as the sole basis for treatment or other patient management decisions. Negative results must be combined with clinical observations, patient history, and epidemiological information. Performed on the [employer] Fusion instrument Performing Lab Mobile [facility] 03/30/2020 0:37 EDT [facility] Swab 03/29/2020 18:1 0 EDT 03/29/2020 20:41 EDT Provider Outr Resulting Lab MICROBIOLOGY - GENERAL ORDERABLES [facility] [address] [place] [address] documented in this encounter Visit Diagnoses Not on filedocumented in this encounter Care Teams Can Handler Relationship Specialty Start Date End Date Storm Valencia MD [address] [place] [id number] PCP - General 10/20/11 documented as of this encounter
--- OUTSIDE RECORDS SUMMARY | 2023-12-28 02:23 | XMS_ITS | Clinical Summary ---
Author Organization [facility] Address [address] [place] [id number] Care Team Providers Care Substance Abuse Technician Name Role Phone Storm Valencia MD Primary Care Provider [phone] Social History Tobacco Use Types Packs/Day Years Used Date Smoking Tobacco: Never Assessed Interpersonal Safety Answer Date Record ed Physically Hurt Never 01/15/2020 Verbally Threaten Not on file 01/15/2020 Sex and Gender Information Value Date Recorded Sex Assigned at Not on file Gender Identity Not on file Sexual Orientation Not on file Plan of Treatment Health Maintenance Due Date Last Done Comments Hepatitis C Screen 1960 RSV Immunization ( o r 60+ Years) (1 - 1-dose 60+ series) 2021 COVID-19 Vaccine ( season) 2023 Care Teams Substance Abuse Technician Relationship Specialty Start Date End Date Storm Valencia MD [address] [place] [id number] PCP - General 10/20/11
--- OUTSIDE RECORDS SUMMARY | 2023-12-28 02:23 | XMS_ITS | Encounter Summary ---
Author Organization [facility] Address [address] [place] [address] Care Team Providers Care Major Case Detective Name Role Phone Unknown, Provider Primary Care Provider Encounter Details Date Type Department Care Team (Late st Contact Info) Description 10/16/2011 Results Only [facility] - [facility] ([facility]) [address] [place], [place] [id number] Tamika Mcneil MD [address] [place] [address] Social History Tobacco Use Types Packs/Day Years Used Date Smoking Tobacco: Never Assessed Sex and Gender Information Value Date Recorded Sex Assigned at Not on file Gender Identity Not on file Sexual Orientation Not on file documented as of this encounter Plan of Treatment Not on file documented as of this encounter Procedures Procedure Name Priority Date/Time Associated Diagnosis Comments SURGICAL PATHOLOGY Routine 10/16/2011 0:00 EDT documented in this encounter Results * SURGICAL PATHOLOGY (10/16/2011 0:00 EDT) Pathology Report: SURGICAL PATHOLOGY REPORT Reports generated via electronic interface contain original data; however they are lacking the format of the original report. Caution should be taken when reading/interpreti ng unformatted reports. Name: ? TORY DUARTE ? Accession #: ? [id number] ? : ? 1960 (Age: 50) ??F ? Collect Date: ? 10/16/2011 ? Location: ? [facility] ? Receive Date: ? 10/17/2011 ? Provider: TAMIKA MCNEIL MD Copy to: BERNA MCCLELLAN MD ? Final Pathologic Diagnosis: ? Endometrium, curettage: 1. ?Fragments of endometrial polyp, hyperplastic type. 2. ? Background endometrium shows papillary syncytial metaplasia and extensive breakdown. ??See comment. 3. ? Fragments of benign myometrial tissue. 4. ? Benign endocervical and squamous mucosa. 5. ?No cytologic atypia identified. ?? Comment: ? This case has been reviewed in conjunction with the referring Pap test ([id number]) by Dr. Luis Gordon. ??The nuclear features seen in the current specimen are similar to those identified in the referring Pap test. ??Accurate assessment of the gabkh-zs-ewnkdb ratio in the background endometrium is precluded by the extent of fragmentation and stromal breakdown. ??(Dr. Siddiqui)/[facility] Document reviewed and electronically signed by: VILMA SIDDIQUI MD Report ??Date: 10/21/2011 14:50 By the signature above, the attending physician certifies that he/she has personally conducted a gross and/or microscopic examination of the described specimens and rendered or confirmed the above diagnosis. Specimen(s) Received: ? Endometrial curettings Clinical History: ? D&C hysteroscopy; 4 month menorrhagia, atypical endometrial cells on Pap; Clinical diagnosis code: 795.00 Gross Description: ? Received in formalin labelled Tory Duarte and endometrial curettings is a 10.0 x 5.0 x 1.0 cm aggregate of claudio-pink fragments admixed with predominantly hemorrhagic. ??The specimen is entirely submitted as (A1)-(A6) following filtration. (Dr. Varma)/mpl End of Report [facility] 10/16/2011 10/17/2011 16: 42 EDT Tamika Mcneil MD PATHOLOGY ORDERABLES [facility] [address] [place] [address] documented in this encounter Visit Diagnoses Not on filedocumented in this encounter Care Teams Major Case Detective Relationship Specialty Start Date End Date Unknown, Provider, PCP - General 09/24/11 10/19/11 documented as of this encounter
--- OUTSIDE RECORDS SUMMARY | 2023-12-28 02:23 | XMS_ITS | Encounter Summary ---
Author Organization [facility] Address [address] [place] [address] Care Team Providers Care Wound Care Rn Name Role Phone Storm Valencia MD Primary Care Provider [phone] Encounter Details Date Type Department Care Team (Latest Contact Info) Description 02/01/2018 13:50 EDT - 02/01/2018 23:59 EDT Hospital Encounter [address] [address] Unknown, Provider, Discharge Disposition: Home or Self Care Social History Tobacco Use Types Packs/Day Years Used Date Smoking Tobacco: Never Assessed Sex and Gender Information Value Date Recorded Sex Assigned at Not on file Gender Identity Not on file Sexual Orientation Not on file documented as of this encounter Discharge Disposition Disposition Code Departure Means Destination Home or Self Alf documented in this encounter Plan of Treatment Not on file documented as of this encounter Visit Diagnoses Not on filedocumented in this encounter Care Teams Wound Care Rn Relationship Specialty Start Date End Date Storm Valencia MD [address] [place] [address] PCP - General 10/20/11 documented as of this encounter
--- OUTSIDE RECORDS SUMMARY | 2023-12-28 02:23 | XMS_ITS | Encounter Summary ---
Author Organization [facility] Address [address] [place] [address] Care Team Providers Care Mobility Scooter Repairer Name Role Phone Storm Valencia MD Primary Care Provider [phone] Encounter Details Date Type Department Care Team (Late st Contact Info) Description 10/06/2019 Lab Requisition [facility] Pathology & Laboratory Medicine - [address] [address] Unknown, Provider, Social History Tobacco Use Types Packs/Day Years [...] Comments ZZCOVID-19 TEST [facility] PCR Today 10/06/2019 15:15 EDT COVID-19 TESTING Routine 10/06/2019 15:1 5 EDT documented in this encounter Results * COVID-19 TEST [facility] PCR (10/06/2019 15:15 EDT) Swab ENTIRE NASOPHARYNX / Unknown 10/06/2019 15:15 EDT 10/06/2019 20:40 EDT Provider Unknown MICROBIOLOGY - MIRACLE AL ORDERABLES [facility] [address] [place] [address] * COVID-19 TESTING (10/06/2019 15:15 EDT) COVID-19 rt-PCR Result Negative Negative 10/07/2019 19:43 EDT [facility] Comment: Negative results do not preclude 2019-nCoV infection and should not be used as the sole basis for treatment or other patient management decisions. Negative results must be combined with clinical observations, patient history, and epidemiological information. This test has not been FDA cleared or approved. This test has been internally validated, but independent review and determination of emergency use authorization ??(EUA) by the FDA is pending. Performed on the [employer] Fast Performing Lab [facility] 10/07/2019 19:43 EDT [facility] Swab ENTIRE NASOPHARYNX / Unknown 10/06/2019 15:15 EDT 10/06/2019 20:40 EDT Provider Unknown MICROBIOLOGY - GENER AL ORDERABLES [facility] [address] [place] [address] documented in this encounter Visit Diagnoses Not on filedocumented in this encounter Care Teams Mobility Scooter Repairer Relationship Specialty Start Date End Date Storm Valencia MD [address] [place] [address] PCP - General 10/20/11 documented as of this encounter
--- OUTSIDE RECORDS SUMMARY | 2023-12-28 02:23 | XMS_ITS | Encounter Summary ---
Author Organization [facility] Address [address] [place] [address] Care Team Providers Care Operations Management Professionals Name Role Phone Unknown, Provider Primary Care Provider Encounter Details Date Type Department Care Team (Late st Contact Info) Description 09/22/2011 Results Only [facility] Laboratory Services - [facility] ([facility]) [address] [place], [place] [address] Tamika Mcneil MD [address] [place] [address] Social History Tobacco Use Types Packs/Day Years Used Date Smoking Tobacco: Never Assessed Sex and Gender Information Value Date Recorded Sex Assigned at Not on file Gender Identity Not on file Sexual Orientation Not on file documented as of this encounter Plan of Treatment Not on file documented as of this encounter Procedures Procedure Name Priority Date/Time Associated Diagnosis Comments PAP TEST- RESULT ONLY Routine 09/22/2011 0:00 EDT documented in this encounter Results * PAP TEST- RESULT ONLY (09/22/2011 0:00 EDT) Pathology Report: CYTOPATHOLOGY REPORT Reports generated via electronic interface contain original data; however they are lacking the format of the original report. Caution should be taken when reading/interpreti ng unformatted reports. Name: ? TORY DUARTE ? Accession #: ? [id number] : ? 1960 (Age: 50) ??F ?Collect Date: ? 09/22/2011 Location: ? [facility] ? Receive Date: ? 09/24/2011 Provider: ?TAMIKA MCNEIL MD Copy to: ? Specimen/Source: ?Pap Test, Cervix/Endocervix, ThinPrep Imaging System with manual evaluation Last Menstrual Period: ? 09/14/11 Other: ? Additional clinical information: DUB ? SPECIMEN ADEQUACY ? Satisfactory for Evaluation - transformation zone component present GENERAL CATEGORIZATION ? Epithelial Cell Abnormality INTERPRETATION ? Glandular Cell Abnormality - Atypical endometrial cells. EDUCATIONAL NOTES/RECOMMENDATI ONS ? [facility] recommends following the 2006 Consensus Guidelines for the Management of Women with Abnormal Cervical Cancer Screening Tests (JLGTD, 2007;11(4):201-222 ). ??Consensus guidelines are available online at www.ASCCP.org. ? Document reviewed and electronically signed by: ? BRIDGETTE SIEGEL MD ? Report Date: ??10/02/2011 13:13 End of Report [facility] 09/22/2011 09/24/2011 Tamika Mcneil MD PATHOLOGY ORDERABLES [facility] [address] [place] [address] documented in this encounter Visit Diagnoses Not on filedocumented in this encounter Care Teams Operations Management Professionals Relationship Specialty Start Date End Date Unknown, Provider, PCP - General 09/24/11 10/19/11 documented as of this encounter
--- OUTSIDE RECORDS SUMMARY | 2023-12-28 02:23 | XMS_ITS | Encounter Summary ---
Author Organization [facility] Address [address] [place] [address] Care Team Providers Care Urban Design Consultant Name Role Phone Storm Valencia MD Primary Care Provider [phone] Encounter Details Date Type Department Care Team (Late st Contact Info) Description 12/26/2015 Results Only [facility]- [facility] [phone] Kary Mckeon MD [address] [place] [phone] Social History Tobacco Use Types Packs/Day Years [...] Diagnosis Comments PAP TEST- RESULT ONLY Routine 12/26/2015 0:00 EDT documented in this encounter Results * PAP TEST- RESULT ONLY (12/26/2015 0:00 EDT) Pathology Report: CYTOPATHOLOGY REPORT Reports generated via electronic interface contain original data; however they are lacking the format of the original report. Caution should be taken when reading/interpreti ng unformatted reports. Name: ? TORY SILVEIRA ? Accession #: ? [id number] ? : ? 1960 (Age: 55) ??F ?Collect Date: ? 12/26/2015 ? Location: ? [facility] ? Receive Date: ? 12/28/2015 ? Provider: KARY MCKEON MD Copy to: ? Final Report SPECIMEN ADEQUACY ? Satisfactory for Evaluation - transformation zone component present GENERAL CATEGORIZATION ? Negative for Intraepithelial Lesion or Malignancy ?? Last Menstrual Period: 12/05/15 Hormonal/Contracep tive status: None Specimen/Source: ??Pap Test, Vagina/Cervix, ThinPrep Imaging System with manual evaluation Document reviewed and electronically signed by: ? Shell Saha, COLLINS(ASCP) ? Report ??Date: 01/09/2016 14:06 HPV with Pap Test ? Date Ordered: ? 01/09/2016 ? Status: ?? Signed Out ?Date Complete: ? 01/11/2016 ? By: ??System Interface ? Date Reported: ? 01/11/2016 ? Interpretation RESULT: Negative for HPV. No E6 or E7 mRNA is detected from HPV types 16,18,31,33,35, 39,45,51,52,56,58, 59,66, and 68 by residential team leader mediated amplification. Comments Document reviewed and electronically signed by: ? System Interface ? Report date: 01/11/2016 By the signature above, the attending physician certifies that he/she has personally conducted a gross and/or microscopic examination of the described specimens and rendered or confirmed the above diagnosis. End of Report [facility] 12/26/2015 12/28/2015 Kary Mckeon MD PATHOLOGY ORDERABLES [facility] [address] [place] [address] documented in this encounter Visit Diagnoses Not on filedocumented in this encounter Care Teams Urban Design Consultant Relationship Specialty Start Date End Date Storm Valencia MD [address] [place] [address] PCP - General 10/20/11 documented as of this encounter
--- OUTSIDE RECORDS SUMMARY | 2023-12-28 02:23 | XMS_ITS | Encounter Summary ---
Author Organization [facility] Address [address] [place] [address] Care Team Providers Care Power Reactor Operator Name Role Phone Storm Valencia MD Primary Care Provider [phone] Encounter Details Date Type Department Care Team (Late st Contact Info) Description 02/01/2018 Results Only [facility]- [facility] [phone] Dereje Handy MD [address] [place] [address] [address] [place], [place] [phone] Social History Tobacco Use Types Packs/Day Years Used Date Smoking Tobacco: Never Assessed Sex and Gender Information Value Date Recorded Sex Assigned at Not on file Gender Identity Not on file Sexual Orientation Not on file documented as of this encounter Plan of Treatment Not on file documented as of this encounter Procedures Procedure Name Priority Date/Time Associated Diagnosis Comments SURGICAL PATHOLOGY Routine 02/01/2018 15 :25 EDT documented in this encounter Results * SURGICAL PATHOLOGY (02/01/2018 15:25 EDT) Pathology Report: SURGICAL PATHOLOGY REPORT Reports generated via electronic interface contain original data; however they are lacking the format of the original report. Caution should be taken when reading/interpret ing unformatted reports. Name: ? TORY DUARTE ? Accession #: ? [id number] ? : ? 1960 (Age: 57) ??F ? Collect Date: ? 02/01/2018 ? Location: ? [facility] ? Receive Date: ? 02/01/2018 ? Provider: DEREJE HANDY MD Copy to: STORM VALENCIA MD ? Final Pathologic Diagnosis: POLYP, SIGMOID COLON, BIOPSY: - ??Hyperplastic polyp. - ??Features of melanosis coli. - ??Negative for dysplasia or malignancy. Document reviewed and electronically signed by: PILAR LAWS MD Report ??Date: 02/03/2018 16:42 By the signature above, the attending physician certifies that he/she has personally conducted a gross and/or microscopic examination of the described specimens and rendered or confirmed the above diagnosis. Specimen(s) Received: Sigmoid polyp Clinical History: Screening Gross Description: ? Received in formalin labelled with proper patient identification (initials C, J) and sigmoid polyp is a single fragment of claudio-brown tissue measuring 0.4 x 0.3 x 0.2 cm. The specimen is submitted entirely in 1. RONALD Roberto (ASCP) 02/01/2018 3:57 PM End of Report [facility] 02/01/2018 15:2 5 EDT 02/01/2018 15:25 EDT Dereje Handy MD PATHOLOGY ORDERA BLES [facility] [address] [place] [address] documented in this encounter Visit Diagnoses Not on filedocumented in this encounter Care Teams Power Reactor Operator Relationship Specialty Start Date End Date Storm Valencia MD [address] [place] [address] PCP - General 10/20/11 documented as of this encounter
--- OUTSIDE RECORDS SUMMARY | 2023-12-28 02:23 | XMS_ITS | Referral Summary ---
Author Organization [facility] Address [address] [place] [address] Care Team Providers Care Medical Sales Representative Name Role Phone Storm Valencia MD Primary Care Provider [phone] Social History Tobacco Use Types Packs/Day Years Used Date Smoking Tobacco: Never Assessed Interpersonal Safety Answer Date Record ed Physically Hurt Never 01/15/2020 Verbally Threaten Not on file 01/15/2020 Sex and Gender Information Value Date Recorded Sex Assigned at Not on file Gender Identity Not on file Sexual Orientation Not on file Plan of Treatment Not on file Care Teams Medical Sales Representative Relationship Specialty Start Date End Date Storm Valencia MD [address] [place] [address] PCP - General 10/20/11
--- OUTSIDE RECORDS SUMMARY | 2023-12-31 01:41 | XMS_ITS | Encounter Summary ---
Author Organization [facility] Address [address] [place] [address] Care Team Providers Care Continuous Absorption Process Operator Name Role Phone Storm Valencia MD Primary Care Provider [phone] Encounter Details Date Type Department Care Team (Latest Contact Info) Description 02/01/2018 13:50 EDT - 02/01/2018 23:59 EDT Hospital Encounter [address] [address] Unknown, Provider, Discharge Disposition: Home or Self Care Social History Tobacco Use Types Packs/Day Years Used Date Smoking Tobacco: Never Assessed Sex and Gender Information Value Date Recorded Sex Assigned at Not on file Gender Identity Not on file Sexual Orientation Not on file documented as of this encounter Discharge Disposition Disposition Code Departure Means Destination Home or Self Snf documented in this encounter Plan of Treatment Not on file documented as of this encounter Visit Diagnoses Not on filedocumented in this encounter Care Teams Continuous Absorption Process Operator Relationship Specialty Start Date End Date Storm Valencia MD [address] [place] [address] PCP - General 10/20/11 documented as of this encounter
--- OUTSIDE RECORDS SUMMARY | 2023-12-31 01:41 | XMS_ITS | Encounter Summary ---
Author Organization [facility] Address [address] [place] [address] Care Team Providers Care Newspaper Manager Name Role Phone Unknown, Provider Primary Care Provider Encounter Details Date Type Department Care Team (Late st Contact Info) Description 10/16/2011 Results Only [facility] - [facility] ([facility]) [address] [place], [place] [address] Tamika Mcneil MD [address] [place] [address] Social History Tobacco Use Types Packs/Day Years [...] ? TORY DUARTE ? Accession #: ? [id number] ? : ? 1960 (Age: 50) ??F [...] in conjunction with the referring Pap test ([id number]) by Dr. Luis Gordon. ??The nuclear features seen in the current specimen are similar to those identified in the referring Pap test. ??Accurate assessment of the qglrx-vm-xjjrtc ratio in the background endometrium is precluded by the extent of fragmentation and stromal breakdown. ??(Dr. Siddiqui)/[facility] Document reviewed and electronically signed by: [...] MD PATHOLOGY ORDERABLES [facility] [address] [place] [address] documented in this encounter Visit Diagnoses Not on filedocumented in this encounter Care Teams Newspaper Manager Relationship Specialty Start Date End Date Unknown, Provider, PCP - General 09/24/11 10/19/11 documented as of this encounter
--- OUTSIDE RECORDS SUMMARY | 2023-12-31 01:41 | XMS_ITS | Referral Summary ---
Author Organization [facility] Address [address] [place] [address] Care Team Providers Care Dry Clipper Tender Name Role Phone Storm Valencia MD Primary Care Provider [phone] Social History Tobacco Use Types Packs/Day Years Used Date Smoking Tobacco: Never Assessed Interpersonal Safety Answer Date Record ed Physically Hurt Never 01/15/2020 Verbally Threaten Not on file 01/15/2020 Sex and Gender Information Value Date Recorded Sex Assigned at Not on file Gender Identity Not on file Sexual Orientation Not on file Plan of Treatment Not on file Care Teams Dry Clipper Tender Relationship Specialty Start Date End Date Storm Valencia MD [address] [place] [address] PCP - General 10/20/11
--- OUTSIDE RECORDS SUMMARY | 2023-12-31 01:41 | XMS_ITS | Encounter Summary ---
Author Organization [facility] Address [address] [place] [address] Care Team Providers Care Community Liaison Name Role Phone Storm Valencia MD Primary Care Provider [phone] Encounter Details Date Type Department Care Team (Late st Contact Info) Description 10/06/2019 Lab Requisition [facility] Pathology & Laboratory Medicine - [address] [address] Unknown, Provider, Social History Tobacco Use Types [...] Provider Unknown MICROBIOLOGY - MIRACLE AL ORDERABLES [facility] [address] [place] [address] * COVID-19 TESTING (10/06/2019 15:15 EDT) COVID-19 rt-PCR Result Negative Negative 10/07/2019 19:43 EDT [facility] Comment: Negative results do not [...] the FDA is pending. Performed on the [employer] Fast Performing Lab [facility] 10/07/2019 19:43 EDT [facility] Swab ENTIRE NASOPHARYNX / Unknown 10/06/2019 15:15 EDT 10/06/2019 20:40 EDT Provider Unknown MICROBIOLOGY - GENER AL ORDERABLES [facility] [address] [place] [address] documented in this encounter Visit Diagnoses Not on filedocumented in this encounter Care Teams Community Liaison Relationship Specialty Start Date End Date Storm Valencia MD [address] [place] [address] PCP - General 10/20/11 documented as of this encounter
--- OUTSIDE RECORDS SUMMARY | 2023-12-31 01:41 | XMS_ITS | Encounter Summary ---
Author Organization [facility] Address [address] [place] [address] Care Team Providers Care Airframe And Powerplant Technician Name Role Phone Storm Valencia MD Primary Care Provider [phone] Encounter Details Date Type Department Care Team (Late st Contact Info) Description 12/26/2015 Results Only [facility] [phone] Kary Mckeon MD [address] [place] [phone] Social History Tobacco Use Types Packs/Day [...] ? TORY SILVEIRA ? Accession #: ? [id number] ? : ? 1960 (Age: 55) ??F [...] types 16,18,31,33,35, 39,45,51,52,56,58, 59,66, and 68 by detention officer mediated amplification. Comments Document reviewed and electronically signed by: ? System Interface ? Report date: 01/11/2016 By the signature above, the attending physician certifies that he/she has personally conducted a gross and/or microscopic examination of the described specimens and rendered or confirmed the above diagnosis. End of Report [facility] 12/26/2015 12/28/2015 Kary Mckeon MD PATHOLOGY ORDERABLES [facility] [address] [place] [address] documented in this encounter Visit Diagnoses Not on filedocumented in this encounter Care Teams Airframe And Powerplant Technician Relationship Specialty Start Date End Date Storm Valencia MD [address] [place] [address] PCP - General 10/20/11 documented as of this encounter
--- OUTSIDE RECORDS SUMMARY | 2023-12-31 01:41 | XMS_ITS | Clinical Summary ---
Author Organization [facility] Address [address] [place] [address] Care Team Providers Care Manufacturing Technologist Name Role Phone Storm Valencia MD Primary Care Provider [phone] Social History Tobacco Use Types Packs/Day Years [...] COVID-19 Vaccine ( season) 2023 Care Teams Manufacturing Technologist Relationship Specialty Start Date End Date Storm Valencia MD [address] [place] [address] PCP - General 10/20/11
--- OUTSIDE RECORDS SUMMARY | 2023-12-31 01:41 | XMS_ITS | Encounter Summary ---
Author Organization [facility] Address [address] [place] [address] Care Team Providers Care Donor Services Coordinator Name Role Phone Storm Valencia MD Primary Care Provider [phone] Encounter Details Date Type Department Care Team (Late st Contact Info) Description 02/01/2018 Results Only [facility] [phone] Dereje Handy MD [address] [place] [address] [address] [place], [place] [id number] Social History Tobacco Use Types Packs/Day Years [...] ? TORY DUARTE ? Accession #: ? [id number] ? : ? 1960 (Age: 57) ??F [...] (ASCP) 02/01/2018 3:57 PM End of Report [facility] 02/01/2018 15:2 5 EDT 02/01/2018 15:25 EDT Dereje Handy MD PATHOLOGY ORDERA BLES [facility] [address] [place] [address] documented in this encounter Visit Diagnoses Not on filedocumented in this encounter Care Teams Donor Services Coordinator Relationship Specialty Start Date End Date Storm Valencia MD [address] [place] [address] PCP - General 10/20/11 documented as of this encounter
--- OUTSIDE RECORDS SUMMARY | 2023-12-31 01:41 | XMS_ITS | Encounter Summary ---
Author Organization [facility] Address [address] [place] [address] Care Team Providers Care Log Deck Tender Name Role Phone Storm Valencia MD Primary Care Provider [phone] Encounter Details Date Type Department Care Team (Late st Contact Info) Description 03/29/2020 Lab Requisition [facility] Pathology & Laboratory Medicine - [address] [address] Outr Resulting Lab, Provider Social History Tobacco [...] Outr Resulting Lab MICROBIOLOGY - GENERAL ORDERABLES [facility] [address] [place] [address] * COVID-19 TESTING (03/29/2020 18:10 EDT) COVID-19 rt-PCR Result Negative Negative 03/30/2020 0:37 EDT [facility] Comment: This test has [...] history, and epidemiological information. Performed on the ComplyMD Fusion instrument Performing Lab Lawn [facility] 03/30/2020 0:37 EDT [facility] Swab 03/29/2020 18:1 0 EDT 03/29/2020 20:41 EDT Provider Outr Resulting Lab MICROBIOLOGY - GENERAL ORDERABLES [facility] [address] [place] [address] documented in this encounter Visit Diagnoses Not on filedocumented in this encounter Care Teams Log Deck Tender Relationship Specialty Start Date End Date Storm Valencia MD [address] [place] [address] PCP - General 10/20/11 documented as of this encounter
--- OUTSIDE RECORDS SUMMARY | 2023-12-31 01:41 | XMS_ITS | Encounter Summary ---
Author Organization [facility] Address [address] [place] [address] Care Team Providers Care Engineering Professionals Name Role Phone Unknown, Provider Primary Care Provider Encounter Details Date Type Department Care Team (Late st Contact Info) Description 09/22/2011 Results Only [facility] - [facility] ([facility]) [address] [place], [place] [address] Tamika Mcneil MD [address] [place] [id number] Social History Tobacco Use Types Packs/Day Years [...] ? TORY DUARTE ? Accession #: ? [id number] : ? 1960 (Age: 50) ??F ?Collect [...] Atypical endometrial cells. EDUCATIONAL NOTES/RECOMMENDATI ONS ? [facility] recommends following the 2006 Consensus Guidelines for the Management of Women with Abnormal Cervical Cancer Screening Tests (JLGTD, 2007;11(4):201-222 ). ??Consensus guidelines are available online at www.ASCCP.org. ? Document reviewed and electronically signed by: ? BRIDGETTE SIEGEL MD ? Report Date: ??10/02/2011 13:13 End of Report [facility] 09/22/2011 09/24/2011 Tamika Mcneil MD PATHOLOGY ORDERABLES [facility] [address] [place] [address] documented in this encounter Visit Diagnoses Not on filedocumented in this encounter Care Teams Engineering Professionals Relationship Specialty Start Date End Date Unknown, Provider, PCP - General 09/24/11 10/19/11 documented as of this encounter
--- NOTE | 2023-12-31 13:32 | DI.CTLCSR_ITS ---
Exam(s) CT CHEST LUNG CANCER SCREEN EXAM: CT CHEST LUNG CANCER SCREEN CLINICAL HISTORY: SCREENING FOR LUNG CA,CURRENT SMOKER, F17.210. TECHNIQUE: Imaging Protocol: Low Dose Technique CONTRAST MATERIAL: None COMPARISON: CT CT CHEST LUNG CANCER SCREEN from 10/10/[address] ABD AORTA CTA W RUNOFF from 01/19/2023 FINDINGS: CHEST: LUNGS: There are no new ominous pulmonary nodules. There are no confluent infiltrates. Previously de scribed bilateral multifocal atelectasis or scarring is unchanged. There are no pleural effusions. MEDIASTINUM: There is no obvious hilar nor mediastinal adenopathy. CARDIAC: Heart size is normal. There is no pericardial effusion.Caliber of the thoracic aorta is wit hin normal limits. OTHER: OSSEOUS: No significant osseous lesions.No fractures.. IMPRESSION: 1. No suspicious lung nodules. No pleural effusions nor intrathoracic adenopathy. 2. Stable unchanged bilateral multifocal atelectasis, unchanged from 10/10/2022. 3. Lung RADS Cat 1 - Negative: No nodules and definitely benign nodules Lung-RADS 1.0 CATEGORIES: Category 0 - Prior chest CT exam(s) being located for comparison. Category 1 - Annual screening in 12 months. No nodules or definitely benign nodules. Category 2 - Annual screening in 12 months. Benign appearance. Nodules with low likelihood of becomin g active cancer. Category 3 - 6-month follow-up. Probably benign. Short-term follow-up suggested. Nodules with low lik elihood of becoming active cancer. Category 4A - 3-month follow-up and CT/PET if >8 mm in size. Suspicious finding. Findings which requi re additional testing. Category 4B - Findings which require additional testing and tissue sampling. Category 4X - Category 3 or 4 nodules with additional features or imaging findings that increases the suspicion of malignancy. Modifier S- Potentially clinically significant findings (non lung cancer) RADIATION DOSE DELIVERED: Total DLP DATA REPOSITORY: All CT scans at this facility are submitted to the National Radiology Data Registry (NRDR) Dose Index Registry (DIR) with the [employer] (ACR). RADIATION OPTIMIZATION: All CT scans at this facility use at least one of these dose optimization te chniques: automated exposure control; mA and/or kV adjustment per patient size (includes targeted exa ms where dose is matched to clinical indication); or iterative reconstruction.
== END ==
PROVIDERS: PCP Nurse Practitioner Family; Visit Provider Nurse Practitioner Family
DX: Z12.2 Encounter for screening for malignant neoplasm of respiratory organs (principal); F17.210 Nicotine dependence, cigarettes, uncomplicated; J98.11 Atelectasis
CPT/HCPCS: 71271

== ENCOUNTER 2024-11-25 12:49 | Outpatient (REF) | payer MEDICARE, SELFPAY ==
[2024-11-25 14:43] LABS: Abs Immature Grans 0.01 10^3/uL (0.0-0.06); Absolute Basophil Count 0.03 10^3/uL (0.0-0.2); Absolute Eosinophil Count 0.18 10^3/uL (0.0-0.7); Absolute Lymphocyte Count 1.07 10^3/uL (1.2-3.4); Absolute Monocyte Count 0.38 10^3/uL (0.1-0.8); Absolute Neutrophil Count 2.61 10^3/uL (1.2-6.7); Basophils % 0.7 %; Eosinophils % 4.2 %; HCT 43.5 % (36.0-46.0); HGB 14.4 g/dL (11.2-15.7); Immature Grans % 0.2 %; MCH 31.6 pg (27.0-33.0); MCHC 33.1 % (32.0-36.0); MCV 95 fL (80-95); MPV 9.5 fL (8.0-11.0); Monocytes % 8.9 %; Platelet Count 213 10^3/uL (130-400); RBC 4.56 10^6/uL (3.93-5.22); RDW 13.6 % (11.7-14.6); RDW-SD 48.1 fL; WBC 4.28 10^3/uL (4.4-10.8)
[2024-11-25 15:11] LABS: ALT 23 U/L (14-59); AST 22 U/L (15-37); Albumin 3.4 g/dL (3.4-5.0); Alkaline Phosphatase 108 U/L (46-116); Anion Gap 5.6 mmol/L (3-11); BUN 9 mg/dL (7-18); Bilirubin, Total 0.4 mg/dL (0.2-1.0); CO2 33.4 mmol/L (21.0-32.0); CREATININE 0.8 mg/dL (0.55-1.02); Calcium 9.1 mg/dL (8.5-10.1); Calculated LDL 94 mg/dL (<100); Chloride 99 mmol/L (98-107); Cholesterol 153 mg/dL (<200); Estimated GFR 83.26 (mL/min/1.73m2); Glucose 80 mg/dL (74-106); HDL Cholesterol 47 mg/dL (>or=50); Potassium 4.2 mmol/L (3.5-5.1); Sodium 138 mmol/L (136-145); TSH (W/Ref FT4) 2.58 uIU/mL (0.36-3.74); Total Protein 7.7 g/dL (6.4-8.2); Triglyceride 60 mg/dL (<150); Vitamin D 25 Total 16 ng/mL (30-100)
== END 2024-11-25 12:50 | disposition home or self-care (01) ==
LOC: NCHCN 12:49
PROVIDERS: PCP Nurse Practitioner Family; Visit Provider Nurse Practitioner Family
DX: E03.9 Hypothyroidism, unspecified (principal); D64.9 Anemia, unspecified; E66.01 Morbid (severe) obesity due to excess calories
CPT/HCPCS: 80053; 80061; 82306; 84443; 85025

== ENCOUNTER 2024-12-11 05:55 | Emergency (ER) | payer MEDICARE, SELFPAY ==
[2024-12-11 05:59] VITALS: PULSE 87; RESP 18; TEMP 37; O2SAT 96
--- NOTE | 2024-12-11 06:15 | DI.RAD_ITS ---
Exam(s) XR HIP RT COMPLETE AP PELVIS EXAM: XR HIP RT COMPLETE AP PELVIS INDICATION: right hip pain. TECHNIQUE: 2D digital imaging was performed. Three views. Exam is extremely limited by under penetration due to body habitus. The exam was performed upright due to severe pain. FINDINGS: No gross evidence of fracture. Hip joint spaces are grossly maintained. No obvious widening of the SI joints or pubic symphysis. Sacrum mostly obscured by overlying stool and bowel gas. IMPRESSION: Severely limited exam. No grossly displaced fracture. The preliminary [facility] report was reviewed. DATA REPOSITORY: RADIATION DOSE DELIVERED:
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
[2024-12-11] MEDS: ACETAMINOPHEN 1,000 MG/100 ML BTL 400 MG IVPB (07:39)
--- NOTE | 2024-12-11 07:50 | DI.VRAD_ITS ---
PROCEDURE INFORMATION: Exam: XR Right Hip Exam date and time: 12/11/2024 7:01 AM Age: 64 years old Clinical indication: Hip pain; Right hip TECHNIQUE: Imaging protocol: Radiologic exam of the right hip. Views: 2 or 3 views hip with pelvis when performed. COMPARISON: 1. CT ABD AORTA CTA W RUNOFF 01/19/2023 8:[address] CHEST PE ABD PELVIS W 04/21/2020 10:16 AM FINDINGS: Limitations: Body habitus. Bones/joints: No fracture is evident. No dislocation. No significant hip arthrosis. Lower lumbar spondylosis. Soft tissues: No obvious abnormality. IMPRESSION: No acute radiographic abnormality. Dictated and Authenticated by: Rinku Delgado MD. Orderin Maribel Fagan MD
--- NOTE | 2024-12-11 08:43 | W.EDPROG ---
Date of service: 12/11/24 Time of Service: 08:44 Medical Decision Making Patient was signed out pending x-ray and PT consult. X-ray is read as negative per radiology, no fractures dislocations or other abnormalities. Patient has no tachycardia or fever to suggest infection. I suspect the pain is secondary to mild bursal irritation secondary to the tight chair on her thigh. Physical therapy consult was ordered by Dr. Sun, and also by myself, however when I did go and reassess the patient myself after signout, the patient and family have declined physical therapy at this time. Patient is on methadone, and I do not feel she would be a great candidate for narcotics. We will give Voltaren gel, recommend continued NSAID therapy, and follow-up with PCP and orthopedics. No evidence of acute life-threatening etiology at this time. Discussed red flags for which to return. I have extensively reviewed the treatment plan and discharge instructions with the patient. I have addressed all patient concerns at this time. The patient was made aware of what symptoms to monitor for that would warrant a return to the emergency department. Discussed the plan with the patient, they demonstrate verbal understanding and agreement with our assessment and plan at this time. The documentation in this chart was dictated using [facility] dictation software. Please excuse any dictation errors. FINDINGS: Limitations: Body habitus. Bones/joints: No fracture is evident. No dislocation. No significant hip arthrosis. Lower lumbar spondylosis. Soft tissues: No obvious abnormality. IMPRESSION: No acute radiographic abnormality. Thank you for allowing us to participate in the care of your patient. Dictated and Authenticated by: Rinku Delgado MD 12/11/2024 7:50 AM Eastern Time ([place] & [place]) Discharge Plan Disposition Patient Disposition: Home Condition: Good Discharge Details Clinical Impression: Acute pain of right hip Primary Care Provider: Megan Loja ED Provider: Sean Hoyt Home Meds and New Rx's Prescriptions: No Action sertraline 100 mg tablet 100 mg PO DAILY buprenorphine-naloxone [Suboxone] 8-2 mg film 2 film buccal BID Rx Instructions: place 1 film on inside of (each) cheek Trelegy Ellipta 100-62.5-25 mcg blister with device 1 inh inhalation DAILY pregabalin 25 mg capsule 25 mg PO TID metoprolol succinate 100 mg tablet extended release 24 hr 100 mg PO BID Qty: 180 3RF Xarelto 20 mg tablet 20 mg PO DAILY Qty: 90 3RF levothyroxine 75 MCG tablet 75 mcg PO DAILY cyclobenzaprine 10 mg tablet 10 mg PO HS albuterol sulfate [Ventolin HFA] 90 mcg/actuation HFA aerosol inhaler 180 mcg INHALATION Q2H Patient Comments: INHALE TWO PUFFS BY MOUTH EVERY 2 HOURS NEEDED FOR SHORTNESS OF BREATH- MAX DAILY DOSE OF 12 PUFFS magnesium chloride [Mag 64] 64 mg Tablet,Delayed Release (Dr/Ec) 64 mg PO DAILY Qty: 30 0RF naloxone 8 mg/actuation spray,non-aerosol 1 spray intranasal Q3M PRNQty: 2 0RF Rx Instructions: spray 1 dose into ONE nostril; alternate nostrils w each dose until help arrives torsemide 20 mg tablet 40 mg PO DAILY Discharge Instructions Instructions: Hip Pain ED Additional Instructions: At this time your symptomatology is concerning for joint irritation secondary to compression from your chair. There may be some mild bursa inflammation as well. Please take Tylenol 1000 mg every 6 hours. Please apply the Voltaren gel to your right thigh to help control the pain and inflammation. If you notice any worsening of your symptoms, or any new symptoms such as vomiting, diarrhea, fever, chills, shortness of breath, chest pain, numbness, weakness, or fainting , please return immediately to the emergency department for reevaluation. Please follow up with your primary care provider as soon as possible for reassessment and reevaluation. As always, it was a pleasure participating in your medical care today. Referrals: Megan Loja [Primary Care Provider, Medicine]
[2024-12-11 09:13] VITALS: BP 110/75; PULSE 102; RESP 18; O2SAT 94
[2024-12-11] MEDS: Diclofenac 1% Gel 100 GM TUBE TP (09:16)
== END 2024-12-11 09:22 | disposition home or self-care (01) ==
PROVIDERS: Emergency Provider Student in an Organized Health Care Education/Training Program; PCP Nurse Practitioner Family
DX: M25.551 Pain in right hip (principal)
CPT/HCPCS: 99283; 99284; 00123; 96365; 73502; J0131

== ENCOUNTER → 2025-01-10 08:38 | Outpatient (BNVA) | payer MEDICARE, SELFPAY | PROVIDERS: PCP Nurse Practitioner Family; Referring Provider Nurse Practitioner Family; Visit Provider Podiatrist | DX: L60.3 Nail dystrophy (principal); B35.1 Tinea unguium; M79.671 Pain in right foot; M79.672 Pain in left foot; I73.89 Other specified peripheral vascular diseases; I87.2 Venous insufficiency (chronic) (peripheral); I89.0 Lymphedema, not elsewhere classified; I83.029 Varicose veins of left lower extremity with ulcer of unspecified site; L97.922 Non-pressure chronic ulcer of unspecified part of left lower leg with fat layer exposed; L98.499 Non-pressure chronic ulcer of skin of other sites with unspecified severity; L65.9 Nonscarring hair loss, unspecified; R23.8 Other skin changes; L60.2 Onychogryphosis; L60.8 Other nail disorders | CPT/HCPCS: 11721 ==

== ENCOUNTER 2025-01-17 16:33 | Observation (INO) | payer MEDICARE, SELFPAY ==
--- NOTE | 2025-01-17 16:45 | W.MEDCONSULT ---
Date of service: 01/17/25 Time of Service: 16:46 Assessment and Plan Assessment and plan (1) Vulvar bleeding: Status: Acute Assessment and plan: S/p cyst drainage in OB ongoing bleeding after 2.5-3 hours Site does not appear infectious AM H&H- first CBC pending will hold DOAC (2) Ulcer of extremity due to chronic venous insufficiency: Status: Acute Assessment and plan: Chronic to LLE - continue opt management with RAINA boot (3) Lymphedema: Status: Acute Assessment and plan: Chronic no exacerbation (4) PAD (peripheral artery disease): Status: Acute Assessment and plan: On DOAC , no ASA (5) Excoriation (skin-picking) disorder: Status: Acute Assessment and plan: no new wound - healing lesion to upper LLE (6) Hypothyroidism: Status: None Assessment and plan: ongoing outpatient regimen (7) COPD (chronic obstructive pulmonary disease): Status: None Assessment and plan: no exacerbation -ongoing home meds regiemn (8) Obesity: Status: Chronic Assessment and plan: on weekly terzepatide outpatient (9) Hx pulmonary embolism: Assessment and plan: On chronic DOAC- will hold for now in the setting of point 1 (10) Hx of atrial flutter: Assessment and plan: on home metoprolol - DOAC on hold (11) Anemia: Assessment and plan: CBC pending (12) Anxiety with depression: Status: Acute Assessment and plan: On going home medicine Discussed with Dr. Martin History of Present Illness History of Present Illness Chief Complaint: ongoing bleeding s/p vulvar cyst drainage on DOAC Narrative: This 64 years old female patient with a past medical history of COPD, atrial-flutter on metoprolol XL, PE on DOAC chronically, depression,morbid obesity on terzepatide was admitted to the medical surgical floor by Dr Osman , [facility], s/p vulvar cyst drainage with subsequent intractable vulvar bleeding s/p blood clot expression from cyst site; no pus extracted. The hospitalist team has been asked to consult on patient d/t extensive list of comorbidities. Additional medical history include PVD , chronic left lower extremity wound with weekly RAINA boot d/t to be changed on 01/18/25 by [facility]. CBC and BMP pending at this time. Denies fever, chills, chest pain, reports pain localized at the site of the vulvar cyst, no other or GI symptoms reported. Full code status confirmed Review of Systems Narrative: [facility] All Active Problems (Updated 01/17/25 @ 18:03 by Keri Osman MD) Vulvar hematoma (Acute) Vulvar bleeding (Acute) Pain in both feet (Acute) Dystrophia unguium (Acute) Onychomycosis (Acute) Ulcer of extremity due to chronic venous insufficiency (Acute) Varicose veins of left lower extremity with ulcer with fat layer exposed (Acute) Lymphedema (Acute) PAD (peripheral artery disease) (Acute) Venous insufficiency of both lower extremities (Acute) Nondisplaced intraarticular fracture of right calcaneus, initial encounter for closed fracture (Acute) Acute pain of right foot (Acute) Peripheral vascular disease (Chronic) Excoriation (skin-picking) disorder (Acute) Excoriation of multiple sites (Acute) Influenza A (Acute) COPD exacerbation (Acute) Respiratory failure with hypoxia (Acute) Open wound of both lower extremities (Acute) Influenza A (Acute) Tobacco use (Chronic) Obesity (Chronic) Pulmonary hypertension (Acute) Multiple rib fractures (Acute) Intractable pain (Acute) Sleep apnea (Acute) Ventricular hypertrophy determined by echocardiography (Chronic) Anxiety with depression (Acute) Cellulitis (Acute) Pulmonary embolism (Chronic) Fluid overload (Acute) Atrial flutter (Chronic) Medical History Exertional shortness of breath Squamous papilloma of uvula Generalized stiffness Hx pulmonary embolism Hx of atrial flutter Venous stasis ulcer Anemia Foot pain, right Dry mouth Bradykinesia Opioid dependence Morbid obesity Asymptomatic varicose veins Osteoarthritis of knee Plantar wart, left foot Hx of thrombophlebitis Sciatica of left side History of rectal bleeding Tremor Dyspnea on exertion Benign neoplasm of uvula Hypoxemia Osteoarthritis of knees, bilateral Obstructive sleep apnea Cholelithiasis Weakness of right leg Resting tremor Unexplained falls Loss of balance Stiffness in joint Vitamin D deficiency Trichotillomania Knee pain Right shoulder pain Foot callus Disequilibrium Bilateral leg pain At risk for domestic abuse Varicose veins of both lower extremities Osteoarthritis Venous insufficiency of right leg Lymphadenopathy Reactive depression Depression Myalgia Sciatica Surgical History Hx of tubal ligation Colonoscopy - MAC (02/01/18) Family History Father , 60s complication of diabetes Diabetes type 1 Mother Cancer Brother Diabetes Half brother Social History Smoking/Tobacco Use Status: Current every day Tobacco Type: cigarettes Smoking risk assessment performed?: Yes Alcohol Intake: former Drug use: Never Substance use type: does not use Household members: spouse Housing: house Do you feel safe at home: Yes Do you feel safe in your relationship?: Yes History History 3 Para 3 Hx # Term Pregnancies Multiple births Hx # Pregnancies Ectopic pregnancies AB induced Hx Number of Living Children 2 AB spontaneous Past Pregnancies Del. Date GA/Weeks # Preg Succ Route Wgt Sex Labor Lgth Anesthesia Location Prov Complic Unknown Yes vaginal 3798.836 g Male [facility] Unknown Yes vaginal 3061.748 g Female [facility] Unknown Yes vaginal 4195.729 g Male [place] Delivery Date: Last Updated by: Caitlin Mendoza RN Baby born 1980 Delivery Date: Last Updated by: Caitlin Mendoza RN Baby born 1983 Delivery Date: Last Updated by: Caitlin Mendoza RN Baby born 1986 Exam Narrative Exam Narrative: Alert and oriented X4 w/o acute distress,no neurological focal deficit, clear lungs, S1-S2 regular, no murmur chronic bilateral leg swelling, ABD is obese , non-distended, soft nontender, no CVA tenderness, RAINA boot to LLE covering LLE chronic wound, healing scab to upper LLE ( picking her skin), bruise to RUE ( pulled on), upper RLE (pulled on s/p fall from recliner at home- not pain) Results Labs 01/17/25 17:13 01/17/25 17:13
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
[2025-01-17 17:32] LABS: Abs Immature Grans 0.01 10^3/uL (0.0-0.06); HCT 44.0 % (36.0-46.0); HGB 14.5 g/dL (11.2-15.7); Immature Grans % 0.2 %; MCH 31.1 pg (27.0-33.0); MCHC 33.0 % (32.0-36.0); MCV 94 fL (80-95); MPV 9.2 fL (8.0-11.0); Platelet Count 268 10^3/uL (130-400); RBC 4.66 10^6/uL (3.93-5.22); RDW 14.6 % (11.7-14.6); RDW-SD 50.8 fL; WBC 6.34 10^3/uL (4.4-10.8)
[2025-01-17 17:46] LABS: ALT 17 U/L (14-59); AST 21 U/L (15-37); Albumin 3.2 g/dL (3.4-5.0); Alkaline Phosphatase 93 U/L (46-116); Anion Gap 4.8 mmol/L (3-11); BUN 7 mg/dL (7-18); Bilirubin, Total 0.5 mg/dL (0.2-1.0); CO2 32.2 mmol/L (21.0-32.0); Calcium 9.2 mg/dL (8.5-10.1); Chloride 102 mmol/L (98-107); Estimated GFR 100.80 (mL/min/1.73m2); Glucose 80 mg/dL (74-106); Potassium 4.0 mmol/L (3.5-5.1); Sodium 139 mmol/L (136-145); Total Protein 7.6 g/dL (6.4-8.2)
[2025-01-17 19:29] VITALS: BP 108/79; PULSE 99; RESP 20; TEMP 36.4; O2SAT 97
--- NOTE | 2025-01-17 20:20 | RESPIRATORY ---
Pt states that she is going home tomorrow and would rather not use the inhalers ordered for her here, and will use her home meds tomorrow. (Pt uses trelegy inhaler)
--- NOTE | 2025-01-17 20:39 | W.PC.ACHO ---
Registration Status: ADM ALEXIA Primary Language: Preferred Language: Upper Sorbian Medical / Surgical History (Last Reviewed 01/10/25 @ 08:53 by Damaris De Anda DPM) Exertional shortness of breath Squamous papilloma of uvula Generalized stiffness Hx pulmonary embolism Hx of atrial flutter Venous stasis ulcer Anemia Foot pain, right Dry mouth Bradykinesia Opioid dependence Morbid obesity Asymptomatic varicose veins Osteoarthritis of knee Plantar wart, left foot Hx of thrombophlebitis Sciatica of left side History of rectal bleeding Tremor Dyspnea on exertion Benign neoplasm of uvula Hypoxemia Osteoarthritis of knees, bilateral Obstructive sleep apnea Cholelithiasis Weakness of right leg Resting tremor Unexplained falls Loss of balance Stiffness in joint Vitamin D deficiency Trichotillomania Knee pain Right shoulder pain Foot callus Disequilibrium Bilateral leg pain At risk for domestic abuse Varicose veins of both lower extremities Osteoarthritis Venous insufficiency of right leg Lymphadenopathy Reactive depression Depression Myalgia Sciatica (Last Reviewed 01/10/25 @ 08:53 by Damaris De Anda DPM) Hx of tubal ligation Colonoscopy - MAC (02/01/18) Most Recent Vital Signs Temperature 97.5 F L 01/17/25 19:29 Temperature Source Temporal Artery Scan 01/17/25 19:29 Pulse 99 H 01/17/25 19:29 Pulse Rhythm Regular 01/17/25 18:13 Respiratory Rate 20 01/17/25 19:29 Respiratory Effort Normal 01/17/25 18:13 Respiratory Depth Normal 01/17/25 18:13 Respiratory Pattern Normal 01/17/25 18:13 Blood Pressure 108/79 01/17/25 19:29 Blood Pressure Mean 88 01/17/25 19:29 Pulse Oximetry 97 01/17/25 19:29 Oxygen Delivery Method Room Air 01/17/25 19:29 Oxygen Flow Rate 0 01/17/25 19:29 Pain Level 6 01/17/25 18:13 Allergies bupropion (From Wellbutrin) Adverse Reaction (Intermediate, Verified 01/17/25 13:58) Nausea Active Medications Generic Name Dose Route Start Last Admin Trade Name Freq PRN Reason Stop Dose Admin Budesonide/Formoterol Fumarate 2 puff 01/17/25 20:00 01/17/25 20:19 Budesonide/Formoterol 80/4.5 6.9 Gm 60 Puff Inh IH Not Given BID SYDNI Diet Orders Category Date Time Status DIET [Diabetes Consistent CHO/Heart Healthy] [DIET] Nutrition 01/17/25 Dinner Active Diagnostics 01/17/25 Range/Units 17:13 WBC 6.34 (4.4-10.8) 10^3/uL RBC 4.66 (3.93-5.22) 10^6/uL Hgb 14.5 (11.2-15.7) g/dL Hct 44.0 (36.0-46.0) % MCV 94 (80-95) fL MCH 31.1 (27.0-33.0) pg MCHC 33.0 (32.0-36.0) % RDW 14.6 (11.7-14.6) % Plt Count 268 (130-400) 10^3/uL MPV 9.2 (8.0-11.0) fL Immature Gran % 0.2 % Neutrophils % 68.3 % Lymphocytes % 16.6 % Monocytes % 12.3 % Eosinophils % 2.1 % Basophils % 0.5 % Nucleated RBC % 0.0 (0.0-0.3) % Absolute Neutrophils 4.34 (1.2-6.7) 10^3/uL Absolute Lymphocytes 1.05 L (1.2-3.4) 10^3/uL Absolute Monocytes 0.78 (0.1-0.8) 10^3/uL Absolute Eosinophils 0.13 (0.0-0.7) 10^3/uL Absolute Basophils 0.03 (0.0-0.2) 10^3/uL Sodium 139 (136-145) mmol/L Potassium 4.0 (3.5-5.1) mmol/L Chloride 102 (98-107) mmol/L Carbon Dioxide 32.2 H (21.0-32.0) mmol/L Anion Gap 4.8 (3-11) mmol/L BUN 7 (7-18) mg/dL Creatinine 0.6 (0.55-1.02) mg/dL Est GFR (CKD-EPI 2020) 100.80 (mL/min/1.73m2) Glucose 80 (74-106) mg/dL Calcium 9.2 (8.5-10.1) mg/dL Total Bilirubin 0.5 (0.2-1.0) mg/dL AST 21 (15-37) U/L ALT 17 (14-59) U/L Alkaline Phosphatase 93 (46-116) U/L Total Protein 7.6 (6.4-8.2) g/dL Albumin 3.2 L (3.4-5.0) g/dL Intake and Output - 24 Hour Total 01/17/25 thru 01/17/25 18:15 Weight 322 lb Other: Urine Color Bright Red Urine Appearance Clear Comment pt has significant bleeding from groin. Falls Risk Assessment History of Falls No History 01/17/25 18:13 Contributing Factors Impairments,Medications 01/17/25 18:13 Ambulatory Aids Uses ambulatory device 01/17/25 18:13 Tubes/Lines None 01/17/25 18:13 Gait Evaluation W/no contributing factors 01/17/25 18:13 Fall Total Score 31 01/17/25 18:13 Level of Risk Moderate Risk 01/17/25 18:13 Problems (Last Reviewed 01/10/25 @ 08:53 by Damaris De Anda DPM) Vulvar hematoma (Acute) Vulvar bleeding (Acute) Ulcer of extremity due to chronic venous insufficiency (Acute) Lymphedema (Acute) PAD (peripheral artery disease) (Acute) Excoriation (skin-picking) disorder (Acute) Obesity (Chronic) Anxiety with depression (Acute) Notes 01/17/25 20:20 Respiratory by Darya Dolan Pt states that she is going home tomorrow and would rather not use the inhalers ordered for her here, and will use her home meds tomorrow. (Pt uses trelegy inhaler) Initialized on 01/17/25 20:20 - END OF NOTE v v v v v v v v v Sending and/or Receiving Nurses: Please use comment section below to note any information pertinent to the patient hand-off not included above. Information / Comments: vulvar hematoma--slow bleed, packed by Vesna Osman Report received from: Caitlin Mendoza RN
[2025-01-17] MEDS: Pregabalin 25 MG CAP PO (21:04)
[2025-01-17] MEDS: Metoprolol CR 100 MG TABCR PO (21:04)
[2025-01-17] MEDS: Cyclobenzaprine 10 MG TAB PO (21:04)
--- NOTE | 2025-01-18 00:30 | NUR.NOTE ---
per yasmine sup pt on ms needs to be OBS not OPD. [facility] called, spoke to Antoinette in OB and she states oncall provider just left but their provider would just asked them to change it so ordered changed to reflect obs. Nursing Note:
[2025-01-18] MEDS: Levothyroxine 75 MCG TAB PO (05:31)
[2025-01-18 07:25] VITALS: BP 110/68; PULSE 96; RESP 14; TEMP 36.4; O2SAT 94
--- NOTE | 2025-01-18 09:24 | DSE_ITS ---
Date of service: 01/18/25 Time of Service: 09:25 DS: Diagnosis Discharge Diagnosis (1) Vulvar hematoma: Status: Acute (2) Vulvar bleeding: Status: Acute Discharge Plan Discharge Details Reason For Visit: vulvar hematoma Admit Date/Time: 01/17/25 16:33 Admit Provider: Keri Osman Attending Provider: Keri Osman Primary Care Provider: Megan Loja Home Meds and New Rx's Prescriptions: No Action sertraline 100 mg tablet 100 mg PO DAILY buprenorphine-naloxone [Suboxone] 8-2 mg film 2 film buccal BID Rx Instructions: place 1 film on inside of (each) cheek Trelegy Ellipta 100-62.5-25 mcg blister with device 1 inh inhalation DAILY pregabalin 25 mg capsule 25 mg PO TID ketoconazole 2 % cream 1 applic topical DAILY Qty: 120 6RF Rx Instructions: Apply to 1g to skin and toenails once daily Mounjaro 7.5 mg/0.5 mL pen injector 7.5 mg subcut QWEEK metoprolol succinate 100 mg tablet extended release 24 hr 100 mg PO BID Qty: 180 3RF Xarelto 20 mg tablet 20 mg PO DAILY Qty: 90 3RF levothyroxine 75 MCG tablet 75 mcg PO DAILY cyclobenzaprine 10 mg tablet 10 mg PO HS albuterol sulfate [Ventolin HFA] 90 mcg/actuation HFA aerosol inhaler 180 mcg INHALATION Q2H Patient Comments: INHALE TWO PUFFS BY MOUTH EVERY 2 HOURS NEEDED FOR SHORTNESS OF BREATH- MAX DAILY DOSE OF 12 PUFFS magnesium chloride [Mag 64] 64 mg Tablet,Delayed Release (Dr/Ec) 64 mg PO DAILY Qty: 30 0RF naloxone 8 mg/actuation spray,non-aerosol 1 spray intranasal Q3M PRNQty: 2 0RF Rx Instructions: spray 1 dose into ONE nostril; alternate nostrils w each dose until help arrives torsemide 20 mg tablet 10 mg PO DAILY DS: Data Vitals/I&O Vitals and I&O: Vital Signs Temperature 36.4 C L 01/18/25 07:25 Temperature Source Temporal Artery Scan 01/18/25 07:25 Pulse 96 H 01/18/25 07:25 Pulse Rhythm Regular 01/17/25 18:13 Respiratory Rate 14 01/18/25 07:25 Respiratory Effort Normal 01/17/25 18:13 Respiratory Depth Normal 01/17/25 18:13 Respiratory Pattern Normal 01/17/25 18:13 Blood Pressure 110/68 01/18/25 07:25 Blood Pressure Mean 82 01/18/25 07:25 Pulse Oximetry 94 01/18/25 07:25 Oxygen Delivery Method Room Air 01/18/25 07:25 Oxygen Flow Rate 0 01/18/25 07:25 Pain Level 6 01/17/25 18:13 Comment pt asleep 01/18/25 02:35 Intake & Output 01/17/25 01/17/25 01/18/25 11:59 23:59 11:59 Intake Total 280 / 280 0 / 0 Output Total 400 / 400 Balance -120 / -120 - -1 Weight 146.057 kg Intake: Oral 280 / 280 0 / 0 Output: Urine 400 / 400 Stool 0 / 0 Other: Urine Color [place] Urine Appearance Clear Clear Urine Odor None Comment mixed with blood, pt had procedure today on her vagina vagina procedure yesterday, small amount of blood from the incision site Data Completed and Pending Labs on day of discharge: Labs from last 24 hours 01/18/25 01/17/25 05:35 17:13 WBC Pending 6.34 RBC Pending 4.66 Hgb Pending 14.5 Hct Pending 44.0 MCV Pending 94 MCH Pending 31.1 MCHC Pending 33.0 RDW Pending 14.6 Plt Count Pending 268 MPV Pending 9.2 Immature Gran % Pending 0.2 Neutrophils % Pending 68.3 Lymphocytes % Pending 16.6 Monocytes % Pending 12.3 Eosinophils % Pending 2.1 Basophils % Pending 0.5 Nucleated RBC % 0.0 Absolute Neutrophils Pending 4.34 Absolute Lymphocytes Pending 1.05 L Absolute Monocytes Pending 0.78 Absolute Eosinophils Pending 0.13 Absolute Basophils Pending 0.03 Sodium 139 Potassium 4.0 Chloride 102 Carbon Dioxide 32.2 H Anion Gap 4.8 BUN 7 Creatinine 0.6 Est GFR (CKD-EPI 2020) 100.80 Glucose 80 Calcium 9.2 Total Bilirubin 0.5 AST 21 ALT 17 Alkaline Phosphatase 93 Total Protein 7.6 Albumin 3.2 L PFSH All Active Problems (Updated 01/17/25 @ 18:03 by Keri Osman MD) Vulvar hematoma (Acute) Vulvar bleeding (Acute) Pain in both feet (Acute) Dystrophia unguium (Acute) Onychomycosis (Acute) Ulcer of extremity due to chronic venous insufficiency (Acute) Varicose veins of left lower extremity with ulcer with fat layer exposed (Acute) Lymphedema (Acute) PAD (peripheral artery disease) (Acute) Venous insufficiency of both lower extremities (Acute) Nondisplaced intraarticular fracture of right calcaneus, initial encounter for closed fracture (Acute) Acute pain of right foot (Acute) Peripheral vascular disease (Chronic) Excoriation (skin-picking) disorder (Acute) Excoriation of multiple sites (Acute) Influenza A (Acute) COPD exacerbation (Acute) Respiratory failure with hypoxia (Acute) Open wound of both lower extremities (Acute) Influenza A (Acute) Tobacco use (Chronic) Obesity (Chronic) Pulmonary hypertension (Acute) Multiple rib fractures (Acute) Intractable pain (Acute) Sleep apnea (Acute) Ventricular hypertrophy determined by echocardiography (Chronic) Anxiety with depression (Acute) Cellulitis (Acute) Pulmonary embolism (Chronic) Fluid overload (Acute) Atrial flutter (Chronic) Medical History Exertional shortness of breath Squamous papilloma of uvula Generalized stiffness Hx pulmonary embolism Hx of atrial flutter Venous stasis ulcer Anemia Foot pain, right Dry mouth Bradykinesia Opioid dependence Morbid obesity Asymptomatic varicose veins Osteoarthritis of knee Plantar wart, left foot Hx of thrombophlebitis Sciatica of left side History of rectal bleeding Tremor Dyspnea on exertion Benign neoplasm of uvula Hypoxemia Osteoarthritis of knees, bilateral Obstructive sleep apnea Cholelithiasis Weakness of right leg Resting tremor Unexplained falls Loss of balance Stiffness in joint Vitamin D deficiency Trichotillomania Knee pain Right shoulder pain Foot callus Disequilibrium Bilateral leg pain At risk for domestic abuse Varicose veins of both lower extremities Osteoarthritis Venous insufficiency of right leg Lymphadenopathy Reactive depression Depression Myalgia Sciatica Surgical History Hx of tubal ligation Colonoscopy - MAC (02/01/18) Family History Father , 60s complication of diabetes Diabetes type 1 Mother Cancer Brother Diabetes Half brother Social History Smoking/Tobacco Use Status: Current every day Tobacco Type: cigarettes Smoking risk assessment performed?: Yes Alcohol Intake: former Drug use: Never Substance use type: does not use Household members: spouse Housing: house Do you feel safe at home: Yes Do you feel safe in your relationship?: Yes History History 3 Para 3 Hx # Term Pregnancies Multiple births Hx # Pregnancies Ectopic pregnancies AB induced Hx Number of Living Children 2 AB spontaneous Past Pregnancies Del. Date GA/Weeks # Preg Succ Route Wgt Sex Labor Lgth Anesth esia Location Prov Complic Unknown Yes vaginal 3798.836 g Male [facility] Unknown Yes vaginal 3061.748 g Female [facility] Unknown Yes vaginal 4195.729 g Male [facility] Delivery Date: Last Updated by: Caitlin Mendoza RN Baby born 1980 Delivery Date: Last Updated by: Caitlin Mendoza RN Baby born 1983 Delivery Date: Last Updated by: Caitlin Mendoza RN Baby born 1986
--- NOTE | 2025-01-18 10:07 | W.PM.DS.N ---
Date of service: 01/18/25 Time of Service: 09:00 DS: Diagnosis Discharge Diagnosis (1) Vulvar hematoma: Status: Acute Asessment and Plan: We discussed that we are still uncertain as to the original cause of the hematoma. I will continue to investigate her recent CT scan. I will also reach out to her PCP to make sure we are on the same page in regards to f/u. She does plan to see her PCP as scheduled at 11:30 today. I will want to see her in f/u next week to evaluate the hematoma. (2) Vulvar bleeding: Status: Acute Asessment and Plan: Acute bleeding has resolved. We reviewed that she may have minimal bleeding off and on over the next few days - weeks. Discharge Plan Disposition Patient Disposition: Home Condition: Stable Discharge Details Reason For Visit: vulvar hematoma Admit Date/Time: 01/17/25 16:33 Admit Provider: Keri Osman Attending Provider: Keri Osman Primary Care Provider: Megan Loja Hospital Course Hospital Course: Pt was admitted for observation overnight from the out-pt clinic with a vulvar hematoma. This was thought to be a Bartholin abscess and there for was incised for drainage but was, instead full of very old blood clot with some active bleeding. The bleeding was consistent enough that I did not want to send her home so she was admitted. After about 3hrs the bleeding decreased significantly. She was watched overnight with only very minimal bleeding. The hospitalist was consulted on management of her various comorbidities. Home Meds and New Rx's Prescriptions: No Action sertraline 100 mg tablet 100 mg PO DAILY buprenorphine-naloxone [Suboxone] 8-2 mg film 2 film buccal BID Rx Instructions: place 1 film on inside of (each) cheek Trelegy Ellipta 100-62.5-25 mcg blister with device 1 inh inhalation DAILY pregabalin 25 mg capsule 25 mg PO TID ketoconazole 2 % cream 1 applic topical DAILY Qty: 120 6RF Rx Instructions: Apply to 1g to skin and toenails once daily Mounjaro 7.5 mg/0.5 mL pen injector 7.5 mg subcut QWEEK metoprolol succinate 100 mg tablet extended release 24 hr 100 mg PO BID Qty: 180 3RF Xarelto 20 mg tablet 20 mg PO DAILY Qty: 90 3RF levothyroxine 75 MCG tablet 75 mcg PO DAILY cyclobenzaprine 10 mg tablet 10 mg PO HS albuterol sulfate [Ventolin HFA] 90 mcg/actuation HFA aerosol inhaler 180 mcg INHALATION Q2H Patient Comments: INHALE TWO PUFFS BY MOUTH EVERY 2 HOURS NEEDED FOR SHORTNESS OF BREATH- MAX DAILY DOSE OF 12 PUFFS magnesium chloride [Mag 64] 64 mg Tablet,Delayed Release (Dr/Ec) 64 mg PO DAILY Qty: 30 0RF naloxone 8 mg/actuation spray,non-aerosol 1 spray intranasal Q3M PRNQty: 2 0RF Rx Instructions: spray 1 dose into ONE nostril; alternate nostrils w each dose until help arrives torsemide 20 mg tablet 10 mg PO DAILY Discharge Instructions Stand Alone Forms: Nursing Discharge Form Referrals: Megan Loja [Primary Care Provider, Medicine] - 01/26/25 12:45 pm Activity:: Activity as Tolerated Equipment/Supplies:: No Equipment Needed Diet:: As Tolerated Discharge Orders Discharge Orders: Discharge Order (Routine); Ordered 01/18/25 Ordered By: Keri Osman DS: Summary Time Spent with Patient providing and/or coordinating discharge services: Less than 30 minutes Status at Discharge Functional status at discharge: uses cane/walker Overall status at discharge: patient is back to baseline Mental Status: mental status grossly normal Speech and Movement: speech and movement normal Mood: congruent mood Affect: normal affect Exam Psych Mental Status: mental status grossly normal Speech and Movement: speech and movement normal Mood: congruent mood Affect: normal affect DS: Data Vitals/I&O Vitals and I&O: Vital Signs Temperature 97.5 F L 01/18/25 07:25 Temperature Source Temporal Artery Scan 01/18/25 07:25 Pulse 96 H 01/18/25 07:25 Pulse Rhythm Regular 01/17/25 18:13 Respiratory Rate 14 01/18/25 07:25 Respiratory Effort Normal 01/17/25 18:13 Respiratory Depth Normal 01/17/25 18:13 Respiratory Pattern Normal 01/17/25 18:13 Blood Pressure 110/68 01/18/25 07:25 Blood Pressure Mean 82 01/18/25 07:25 Pulse Oximetry 94 01/18/25 07:25 Oxygen Delivery Method Room Air 01/18/25 07:25 Oxygen Flow Rate 0 01/18/25 07:25 Pain Level 6 01/17/25 18:13 Comment pt asleep 01/18/25 02:35 Intake & Output 01/17/25 01/17/25 01/18/25 11:59 23:59 11:59 Intake Total 280 / 280 0 / 0 Output Total 400 / 400 / Balance -120 / -120 - / -1 Weight 322 lb Intake: Oral 280 / 280 0 / 0 Output: Urine 400 / 400 Stool 0 / 0 Other: Urine Color [employer] Urine Appearance Clear Clear Urine Odor None Comment mixed with blood, pt had procedure today on her vagina vagina procedure yesterday, small amount of blood from the incision site Data Completed and Pending Labs on day of discharge: Labs from last 24 hours 01/18/25 01/17/25 05:35 17:13 WBC Pending 6.34 RBC Pending 4.66 Hgb Pending 14.5 Hct Pending 44.0 MCV Pending 94 MCH Pending 31.1 MCHC Pending 33.0 RDW Pending 14.6 Plt Count Pending 268 MPV Pending 9.2 Immature Gran % Pending 0.2 Neutrophils % Pending 68.3 Lymphocytes % Pending 16.6 Monocytes % Pending 12.3 Eosinophils % Pending 2.1 Basophils % Pending 0.5 Nucleated RBC % 0.0 Absolute Neutrophils Pending 4.34 Absolute Lymphocytes Pending 1.05 L Absolute Monocytes Pending 0.78 Absolute Eosinophils Pending 0.13 Absolute Basophils Pending 0.03 Sodium 139 Potassium 4.0 Chloride 102 Carbon Dioxide 32.2 H Anion Gap 4.8 BUN 7 Creatinine 0.6 Est GFR (CKD-EPI 2020) 100.80 Glucose 80 Calcium 9.2 Total Bilirubin 0.5 AST 21 ALT 17 Alkaline Phosphatase 93 Total Protein 7.6 Albumin 3.2 L PFSH All Active Problems (Updated 01/17/25 @ 18:03 by Keri Osman MD) Vulvar hematoma (Acute) Vulvar bleeding (Acute) Pain in both feet (Acute) Dystrophia unguium (Acute) Onychomycosis (Acute) Ulcer of extremity due to chronic venous insufficiency (Acute) Varicose veins of left lower extremity with ulcer with fat layer exposed (Acute) Lymphedema (Acute) PAD (peripheral artery disease) (Acute) Venous insufficiency of both lower extremities (Acute) Nondisplaced intraarticular fracture of right calcaneus, initial encounter for closed fracture (Acute) Excoriation of multiple sites (Acute) Excoriation (skin-picking) disorder (Acute) Peripheral vascular disease (Chronic) Acute pain of right foot (Acute) COPD exacerbation (Acute) Influenza A (Acute) Respiratory failure with hypoxia (Acute) Open wound of both lower extremities (Acute) Influenza A (Acute) Atrial flutter (Chronic) Fluid overload (Acute) Pulmonary embolism (Chronic) Cellulitis (Acute) Anxiety with depression (Acute) Ventricular hypertrophy determined by echocardiography (Chronic) Sleep apnea (Acute) Intractable pain (Acute) Multiple rib fractures (Acute) Pulmonary hypertension (Acute) Obesity (Chronic) Tobacco use (Chronic) Medical History Exertional shortness of breath Squamous papilloma of uvula Generalized stiffness Hx pulmonary embolism Hx of atrial flutter Venous stasis ulcer Anemia Foot pain, right Dry mouth Bradykinesia Opioid dependence Morbid obesity Asymptomatic varicose veins Osteoarthritis of knee Plantar wart, left foot Hx of thrombophlebitis Sciatica of left side History of rectal bleeding Tremor Dyspnea on exertion Benign neoplasm of uvula Hypoxemia Osteoarthritis of knees, bilateral Obstructive sleep apnea Cholelithiasis Weakness of right leg Resting tremor Unexplained falls Loss of balance Stiffness in joint Vitamin D deficiency Trichotillomania Knee pain Right shoulder pain Foot callus Disequilibrium Bilateral leg pain At risk for domestic abuse Varicose veins of both lower extremities Osteoarthritis Venous insufficiency of right leg Lymphadenopathy Reactive depression Depression Myalgia Sciatica Surgical History Hx of tubal ligation Colonoscopy - [facility] (02/01/18) Family History Father , 60s complication of diabetes Diabetes type 1 Mother Cancer Brother Diabetes Half brother Social History Smoking/Tobacco Use Status: Current every day Tobacco Type: cigarettes Smoking risk assessment performed?: Yes Alcohol Intake: former Drug use: Never Substance use type: does not use Household members: spouse Housing: house Do you feel safe at home: Yes Do you feel safe in your relationship?: Yes History History 3 Para 3 Hx # Term Pregnancies Multiple births Hx # Pregnancies Ectopic pregnancies AB induced Hx Number of Living Children 2 AB spontaneous Past Pregnancies Del. Date GA/Weeks # Preg Succ Route Wgt Sex Labor Lgth Anesthesia Location Prov Complic Unknown Yes vaginal 8 lb 6 oz Male [facility] Unknown Yes vaginal 6 lb 12 oz Female [facility] Unknown Yes vaginal 9 lb 4 oz Male [facility] Delivery Date: Last Updated by: Ciatlin Mendoza RN Baby born 1980 Delivery Date: Last Updated by: Caitlin Mendoza RN Baby born 1983 Delivery Date: Last Updated by: Caitlin Mendoza RN Baby born 1986 Time Spent with Patient Time Spent with Patient: <45 minutes Time was spent: preparing to see the patient(eg.review tests), obtaining and/or reviewing separately otained hiistory, referring, communicating with other health child care group leader, counseling the patient and care coordination
== END 2025-01-18 10:41 | disposition home or self-care (01) ==
PROVIDERS: Admitting Provider Obstetrics & Gynecology; PCP Nurse Practitioner Family; Responsible Provider Nurse Practitioner Acute Care; Visit Provider Obstetrics & Gynecology
DX: N90.89 Other specified noninflammatory disorders of vulva and perineum (principal); Z79.01 Long term (current) use of anticoagulants; Z86.711 Personal history of pulmonary embolism; E03.9 Hypothyroidism, unspecified; I89.0 Lymphedema, not elsewhere classified; E66.01 Morbid (severe) obesity due to excess calories; F41.8 Other specified anxiety disorders; B35.1 Tinea unguium; I73.9 Peripheral vascular disease, unspecified; J44.9 Chronic obstructive pulmonary disease, unspecified; I48.92 Unspecified atrial flutter; I27.20 Pulmonary hypertension, unspecified; F17.210 Nicotine dependence, cigarettes, uncomplicated; E55.9 Vitamin D deficiency, unspecified; D64.9 Anemia, unspecified; Z79.85 Long-term (current) use of injectable non-insulin antidiabetic drugs; Z68.43 Body mass index [BMI] 50.0-59.9, adult; F42.4 Excoriation (skin-picking) disorder; Z79.899 Other long term (current) drug therapy; I87.2 Venous insufficiency (chronic) (peripheral); L97.828 Non-pressure chronic ulcer of other part of left lower leg with other specified severity
CPT/HCPCS: 00123; 80053; 85025; 99223; G0378

== ENCOUNTER 2025-01-17 18:06 | Outpatient (REF) | payer MEDICARE, SELFPAY ==
--- NOTE | 2025-01-17 15:00 | PAPFT_PTH ---
PATIENT: Aparna Duarte LOC: [facility] U#:[id number] AGE/SX: 64/F ROOM: RE01/17/[address]: Keri Osman MD : 1960 BED: DIS: 01/17/2025 SPEC #: [id number] RECD: 01/17/25 18:26 STATUS: MARCOS REQ #: [id number] MAXWELL: 01/17/25 15:[address]: Keri Osman DEPT: [facility] Cytology RECD BY: Alise Angulo ENTERED: 01/17/25 18:26 SP TYPE: PAPFT OTHR DR: Megan Loja Tissues: 1 - CX/ENDOCX FOR PAP SMEARS Procedures: PAP THIN PREP/UVM Screening Comments: [id number]
--- NOTE | 2025-01-17 15:00 | VUL_PTH ---
PATIENT: Aparna Duarte LOC: [facility] U#:[id number] AGE/SX: 64/F ROOM: RE01/17/[address]: Keri Osman MD : 1960 BED: DIS: 01/17/2025 SPEC #: [id number] RECD: 01/17/25 18:12 STATUS: MARCOS REQ #: [id number] MAXWELL: 01/17/25 15:[address]: Keri Osman DEPT: Surgical Specimen RECD BY: Alise Angulo ENTERED: 01/17/25 18:13 SP TYPE: VUL OTHR DR: Megan Loja Tissues: 1 - VULVA BIOPSY Procedures: GROSS AND MICRO LEVEL 3 Comments: [id number]
--- NOTE | 2025-01-18 11:22 | PDOC.CMDIS ---
Date of service: 01/18/25 Time of Service: 11:26 LACE Index Scoring Tool Questions: Length of Stay (in days): 1 Was the patient admitted via the E.D.?: No Comorbidities: Chronic Pulmonary Disease E.D. Visits: 1 Answers: Total Score: 4 Risk of Readmission: Low Risk Care Management Discharge Plan Reason for Hospitalization: Vulvar Hematoma Discharge Plan: Aparna was discharged prior to CM meeting with her. Per chart review it is recommended she follow up with her community providers and plan of care. Aparna will transport via private vehicle. Patient/Family Education Needs: Review of discharge instructions, activity, limitations, and plan of care. Discuss ask me three
== END 2025-01-17 18:07 | disposition home or self-care (01) ==
LOC: LBN 18:06
PROVIDERS: PCP Nurse Practitioner Family; Visit Provider Obstetrics & Gynecology
DX: Z12.4 Encounter for screening for malignant neoplasm of cervix (principal); N93.8 Other specified abnormal uterine and vaginal bleeding
CPT/HCPCS: 88142; 88305; 88304

== ENCOUNTER 2025-01-20 16:26 | Outpatient (REF) | payer MEDICARE, SELFPAY | END 2025-01-20 16:27 | disposition home or self-care (01) | LOC: NCHCN 16:26 | PROVIDERS: PCP Nurse Practitioner Family; Visit Provider Family Medicine | DX: R39.9 Unspecified symptoms and signs involving the genitourinary system (principal) | CPT/HCPCS: 87077; 87086; 87186 ==

== ENCOUNTER 2025-05-18 16:37 | Outpatient (REF) | payer MEDICARE, SELFPAY | END 2025-05-18 16:38 | disposition home or self-care (01) | LOC: NCHCN 16:37 | PROVIDERS: PCP Nurse Practitioner Family; Visit Provider Nurse Practitioner Family ==

== ENCOUNTER 2025-05-29 14:46 | Outpatient (CLI) | payer MEDICARE, SELFPAY ==
[2025-05-29 15:39] LABS: Abs Immature Grans 0.02 10^3/uL (0.0-0.06); HCT 46.0 % (36.0-46.0); HGB 15.4 g/dL (11.2-15.7); Immature Grans % 0.4 %; MCH 30.9 pg (27.0-33.0); MCHC 33.5 % (32.0-36.0); MCV 92 fL (80-95); MPV 9.7 fL (8.0-11.0); Platelet Count 190 10^3/uL (130-400); RBC 4.98 10^6/uL (3.93-5.22); RDW 15.2 % (11.7-14.6); RDW-SD 51.4 fL; WBC 5.31 10^3/uL (4.4-10.8)
[2025-05-29 15:55] LABS: INR 1.5 (0.9-1.1); PTT Activated 40.2 sec (20.6-30.2); Prothrombin Time 14.2 sec (9.1-11.1)
[2025-05-29 16:20] LABS: D-Dimer 570 ng/mlFEU (<500)
[2025-05-29 16:23] LABS: ALT 9 U/L (10-49); AST 21 U/L (<34); Albumin 4.0 g/dL (3.2-5.0); Alkaline Phosphatase 92 U/L (46-116); Anion Gap 5.7 mmol/L (3-11); BUN 8 mg/dL (9-23); Bilirubin, Total 0.5 mg/dL (0.2-1.2); CO2 28.3 mmol/L (20.0-31.0); Calcium 9.3 mg/dL (8.3-10.6); Chloride 104 mmol/L (98-107); Glucose 86 mg/dL (74-106); Potassium 5.0 mmol/L (3.5-5.1); Sodium 138 mmol/L (136-145); Total Protein 8.0 g/dL (5.7-8.2)
[2025-05-31 16:00] LABS: Myeloperoxidase Ab IgG <0.2 U (>=0.4)
== END 2025-05-29 14:47 | disposition home or self-care (01) ==
LOC: LBO 14:46
PROVIDERS: PCP Nurse Practitioner Family; Visit Provider Nurse Practitioner Family
DX: R23.3 Spontaneous ecchymoses (principal)
CPT/HCPCS: 36415; 80053; 83516; 85025; 85379; 85610; 85730; 86160